=== PATIENT | female | born 1980 | race Two or more races ===

== ENCOUNTER 2024-03-19 09:31 | Outpatient (RCR) | payer BC, SELFPAY ==
--- NOTE | 2024-03-22 16:23 | CTCCONSULT_ITS ---
[address] [address] RE: ANA UMANA D.O.B.: 1980 AGE: 43 DATE OF CONSULTATION: 03/19/2024 DIAGNOSIS: Thrombocytosis REFERRING PHYSICIAN: MAITE RÍOS PRIMARY PHYSICIAN :MAITE RÍOS REASON FOR CONSULTATION: Thrombocytosis HISTORY OF PRESENT ILLNESS: Patient is a 43-year-old woman with a history of thrombocytosis. Patient was noted to have elevated platelet and primary care started her on baby aspirin. Patient do not have recurrent clots. Patient complains of headache which are chronic. Patient also have many nonspecific complaints. Patient apollo avaloses history of full-term pregnancies. She had 2 children born with did not require any tr ansfusion. No blood clot PE or DVT history. Patient needed removal of varicose veins. 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 GI: No nausea, vomiting, diarrhea or constipation. CVS: No palpitations or angina pains. Respiratory: No cough, chest pain or shortness of breath. VITAL SIGNS: Date Time PHYSICAL EXAMINATION: Conjunctivae is white. Oral cavity is dry. Chest is clear to auscultation. No wheezes or rales audible. CVS: Rhythm regular, no murmurs or gallops present. Abdomen is soft. No hepatosplenomegaly. Extremities: No pedal edema or cyanosis. LABORATORY DATA: Date 03/20/2024 Time 9:26 AM CBC ? ??RED BLOOD COUNT (Miln/mm3) [C] 5.22 H ??HEMOGLOBIN (gm/dl) [C] 9.8 L ??HEMATOCRIT (%) [C] 34.8 L ??MCV (MEAN CORPUSCULAR VOL) (fl) [C] 67 L ??MCH (MEAN CORPUSCULAR HGB) (pg) [C] 18.8 L ??MCHC (MEAN CORPSCULR HGB CONC) (gm/dl) [C] 28.2 L ??RDW (RBC DISTRIBUTION WDTH) SD (fl) [C] 49.1 H ??EOS, AUTO (Thou/mm3) [C] 0.8 H ??IMMATURE GRANULOCYTES, AUTO (Thou/mm3) [C] 0.02 H Chemistry ? ??SODIUM (mmol/L) 135 L ??ANION GAP (mmol/L) 4 L ??OSMOLALITY, CALC 271 L ??BUN/CREATININE RATIO (Ratio) 33 H Additional Labs ? ??UNBOUND IBC (mcg/dL) 387 H ? ??Initials PB ??Approved By PB Other Labs ? ??IMMATURE RETICULOCYTE FRACT (%) [C] 29.5 H ??FERRITIN (ng/ml) 1 L ??CRP (C-REACTIVE PROTEIN) (S*) (mg/dL) 1.5 H ??RETICULOCYTE HGB CONTENT (pg) [C] 20.0 L ??Iron (mcg/dL) 28 L ??Percent Iron Saturation (%) 6 L ASSESSMENT: #1 thrombocytosis likely reactive #2 anemia likely iron deficient PLAN: -Will get complete panel of iron studies including ferritin Will start on IV iron once ferritin results are back Will do secondary thrombocytosis workup including JAK2 Patient likely have reactive thrombocytosis from iron deficiency anemia Will do inflammatory workup including CRP ESR ?? ORDERS: Ferritin iron studies B12 folic acid CRP ESR RETURN TO CLINIC: cc: RAYSHAWN RÍOS, Referring: MAITE RÍOS Electronically Signed {Object.Sanct_Date} at {Object.Sanct_Time} {Object.Sanct_ID*PnP.NameFL@M}, {Object.Sanct_ID*PnP.Suffix@U} Patient: ANA UMANA : 1980 MR#: [id number] Account: [id number] FOLLOW UP NOTE Page 2 of 4
== END 2024-04-04 23:59 | disposition home or self-care (01) ==
LOC: SCTC 09:31
PROVIDERS: PCP Internal Medicine; Referring Provider Internal Medicine; Visit Provider Internal Medicine Hematology & Oncology
DX: D75.839 Thrombocytosis, unspecified (principal); D50.9 Iron deficiency anemia, unspecified
CPT/HCPCS: 99213; G0463

== ENCOUNTER → 2024-03-20 | Outpatient (CLI) | payer BC, SELFPAY ==
[2024-03-20 09:30] LABS: Flow Cytometry* See Sep Rpt; Misc Send Out* See Sep Rpt
[2024-03-20 10:10] LABS: Basophils # (Auto) 0.1 Thou/mm3 (0.0-0.2); Basophils % (Auto) 1 % (0-2.5); Eosinophils # (Auto) 0.8 Thou/mm3 (0.0-0.5); Eosinophils % (Auto) 9 % (0-10); Hematocrit 34.8 % (36.0-46.0); Hemoglobin 9.8 g/dL (12.0-16.0); Immature Granulocytes % (Auto) 0 % (0-0); Immature Granulocytes Auto 0.02 Thou/mm3 (0.00-0.00); Immature Reticulocyte Fraction 29.5 % (3.0-15.9); Lymphocytes # (Auto) 2.4 Thou/mm3 (1.0-4.8); Lymphocytes % (Auto) 26 % (10-50); Mean Corpuscular HGB Conc 28.2 g/dl (31.0-37.0); Mean Corpuscular Hemoglobin 18.8 pg (25.0-35.0); Mean Corpuscular Volume 67 fL (80-100); Monocytes # (Auto) 0.4 Thou/mm3 (0.0-0.8); Monocytes % (Auto) 4 % (0-12); Neutrophils # (Auto) 5.5 Thou/mm3 (1.8-7.7); Neutrophils % (Auto) 60 % (37-80); Nucleated Red Blood Cell % 0 /100 WBC (0); Platelet Count 424 Thou/mm3 (140-440); RDW Standard Deviation 49.1 fL (36.4-46.3); Red Blood Count 5.22 Miln/mm3 (4.00-5.20); Reticulocyte % (Auto) 0.9 % (0.5-1.5); Reticulocyte Absolute Auto 47.5 Biln/L (25.0-75.0); White Blood Count 9.2 Thou/mm3 (3.6-11.0)
[2024-03-20 10:26] LABS: Alanine Aminotransferase 28 U/L (10-49); Albumin, Serum 4.8 gm/dL (3.5-5.0); Albumin/Globulin Ratio 1.5 (1.2-2.2); Alkaline Phosphatase 86 U/L (46-116); Anion Gap 4 (7-16); Aspartate Amino Transferase 32 U/L (0-34); BUN/Creatinine Ratio 33 Ratio (12-20); Bilirubin,Total 0.6 mg/dL (0.3-1.2); Blood Urea Nitrogen 20 mg/dL (9-23); C-Reactive Protein 1.5 mg/dL (0.0-0.9); Calcium 9.6 mg/dL (8.3-10.6); Calcium (Corrected) 9.6 mg/dL (8.5-10.1); Carbon Dioxide 26.9 mMol/L (20.0-31.0); Chloride 104 mMol/L (98-107); Creatinine (Component) 0.6 mg/dL (0.6-1.3); Globulin 3.3 gm/dL (2.3-3.5); Glucose 85 mg/dL (74-106); LDH (Lactate Dehydrogenase) 157 U/L (120-246); Osmolality,Calculated 271 (275-295); Potassium 4.1 mMol/L (3.4-5.1); Sodium 135 mMol/L (136-145); Thyroid Stimulating Hormone 1.25 uIU/mL (0.55-4.78); Total Protein 8.1 gm/dL (5.7-8.2); eGFR > 60 See Note
[2024-03-20 10:39] LABS: Ferritin 1 ng/mL (7.3-270.7); Iron 28 mcg/dL (50-170); Percent Iron Saturation 6 % (20-55); Total Iron Binding Capacity 415 mcg/dL (250-425); Unsaturated Iron Binding 387 (225-295)
[2024-03-20 11:17] LABS: RA Screen Negative (Negative)
[2024-03-30 07:22] LABS: ANA Screen, IFA NEGATIVE (NEGATIVE); Haptoglobin* 150 mg/dL (43-212); T3,Total* 120 ng/dL (76-181)
== END | disposition home or self-care (01) ==
PROVIDERS: PCP Internal Medicine; Referring Provider Internal Medicine Hematology & Oncology; Visit Provider Internal Medicine Hematology & Oncology
DX: D75.839 Thrombocytosis, unspecified (principal); D64.9 Anemia, unspecified; D47.3 Essential (hemorrhagic) thrombocythemia
CPT/HCPCS: 36415; 80053; 81219; 81270; 81279; 81339; 82728; 83010; 83540; 83550; 83615; 84443; 84480; 85025; 85046; 86038; 86140; 86430

== ENCOUNTER 2024-04-09 13:19 | Outpatient (RCR) | payer BC, SELFPAY | END 2024-05-05 23:59 | disposition home or self-care (01) | LOC: SCTC 13:19 | PROVIDERS: PCP Internal Medicine; Referring Provider Internal Medicine; Visit Provider Nurse Practitioner Family | DX: D64.9 Anemia, unspecified (principal); Z86.2 Personal history of diseases of the blood and blood-forming organs and certain disorders involving the immune mechanism; Z90.710 Acquired absence of both cervix and uterus | CPT/HCPCS: 99212; G0463 ==

== ENCOUNTER → 2024-05-22 | Outpatient (CLI) | payer BC, SELFPAY ==
[2024-05-22 09:08] LABS: Basophils # (Auto) 0.1 Thou/mm3 (0.0-0.2); Basophils % (Auto) 1 % (0-2.5); Eosinophils # (Auto) 1.5 Thou/mm3 (0.0-0.5); Eosinophils % (Auto) 25 % (0-10); Hematocrit 32.4 % (36.0-46.0); Hemoglobin 9.3 g/dL (12.0-16.0); Immature Granulocytes % (Auto) 0 % (0-0); Immature Granulocytes Auto 0.01 Thou/mm3 (0.00-0.00); Lymphocytes # (Auto) 1.5 Thou/mm3 (1.0-4.8); Lymphocytes % (Auto) 24 % (10-50); Mean Corpuscular HGB Conc 28.7 g/dl (31.0-37.0); Mean Corpuscular Hemoglobin 18.4 pg (25.0-35.0); Mean Corpuscular Volume 64 fL (80-100); Monocytes # (Auto) 0.9 Thou/mm3 (0.0-0.8); Monocytes % (Auto) 15 % (0-12); Neutrophils # (Auto) 2.2 Thou/mm3 (1.8-7.7); Neutrophils % (Auto) 35 % (37-80); Nucleated Red Blood Cell % 0 /100 WBC (0); Platelet Count 446 Thou/mm3 (140-440); RDW Standard Deviation 38.7 fL (36.4-46.3); Red Blood Count 5.05 Miln/mm3 (4.00-5.20); Reticulocyte % (Auto) 0.7 % (0.5-1.5); Reticulocyte Absolute Auto 34.3 Biln/L (25.0-75.0); Reticulocyte Hgb Content 16.4 pg (28.0-35.0); White Blood Count 6.2 Thou/mm3 (3.6-11.0)
[2024-05-22 09:33] LABS: Alanine Aminotransferase 33 U/L (10-49); Albumin, Serum 4.5 gm/dL (3.5-5.0); Anion Gap 7 (7-16); Aspartate Amino Transferase 32 U/L (0-34); BUN/Creatinine Ratio 23 Ratio (12-20); Bilirubin,Total 0.3 mg/dL (0.3-1.2); Blood Urea Nitrogen 14 mg/dL (9-23); Calcium 9.3 mg/dL (8.3-10.6); Chloride 102 mMol/L (98-107); Creatinine (Component) 0.6 mg/dL (0.6-1.3); Glucose 89 mg/dL (74-106); Osmolality,Calculated 273 (275-295); Potassium 4.2 mMol/L (3.4-5.1); Sodium 137 mMol/L (136-145); Total Protein 7.4 gm/dL (5.7-8.2); eGFR > 60 See Note
[2024-05-22 09:34] LABS: Albumin/Globulin Ratio 1.6 (1.2-2.2); Alkaline Phosphatase 75 U/L (46-116); Calcium (Corrected) 9.3 mg/dL (8.5-10.1); Folate 16.71 ng/mL (>5.38); Globulin 2.9 gm/dL (2.3-3.5); Vitamin B12 605 pg/mL (211-911)
[2024-05-22 10:09] LABS: Ferritin 8 ng/mL (7.3-270.7); Total Iron Binding Capacity 388 mcg/dL (250-425)
[2024-05-22 10:19] LABS: Iron 17 mcg/dL (50-170); Percent Iron Saturation 4 % (20-55); Unsaturated Iron Binding 371 (225-295)
== END | disposition home or self-care (01) ==
LOC: COPL 07:41 → SCTO 07:42
PROVIDERS: PCP Internal Medicine; Referring Provider Nurse Practitioner Family; Visit Provider Nurse Practitioner Family
DX: D47.3 Essential (hemorrhagic) thrombocythemia (principal)
CPT/HCPCS: 36415; 80053; 82607; 82728; 82746; 83540; 83550; 85025; 85046

== ENCOUNTER 2024-06-03 13:55 | Outpatient (RCR) | payer BC, OTHER, SELFPAY | END 2024-06-05 23:59 | disposition home or self-care (01) | LOC: SCTC 13:55 | PROVIDERS: PCP Internal Medicine; Referring Provider Internal Medicine; Visit Provider Internal Medicine Hematology & Oncology | DX: D64.9 Anemia, unspecified (principal); Z90.710 Acquired absence of both cervix and uterus | CPT/HCPCS: 96365; 96366; 96375; J2916; J2919; J3490; J7040; J7050 ==

== ENCOUNTER 2024-06-24 13:52 | Outpatient (RCR) | payer BC, OTHER, SELFPAY | END 2024-07-03 23:59 | disposition home or self-care (01) | LOC: SCTC 13:52 | PROVIDERS: PCP Internal Medicine; Referring Provider Internal Medicine Hematology & Oncology; Visit Provider Internal Medicine Hematology & Oncology | DX: D50.9 Iron deficiency anemia, unspecified (principal); Z90.710 Acquired absence of both cervix and uterus | CPT/HCPCS: 36415; 96365; 96375; A4216; J2916; J2919; J3490; J7040; J7050 ==

== ENCOUNTER → 2024-06-25 | Outpatient (CLI) | payer BC, SELFPAY ==
[2024-06-25 08:34] LABS: Basophils # (Auto) 0.1 Thou/mm3 (0.0-0.2); Basophils % (Auto) 1 % (0-2.5); Eosinophils # (Auto) 0.7 Thou/mm3 (0.0-0.5); Eosinophils % (Auto) 9 % (0-10); Hematocrit 36.4 % (36.0-46.0); Hemoglobin 10.7 g/dL (12.0-16.0); Immature Granulocytes % (Auto) 0 % (0-0); Immature Granulocytes Auto 0.01 Thou/mm3 (0.00-0.00); Immature Reticulocyte Fraction 31.1 % (3.0-15.9); Lymphocytes % (Auto) 24 % (10-50); Mean Corpuscular HGB Conc 29.4 g/dl (31.0-37.0); Mean Corpuscular Hemoglobin 20.7 pg (25.0-35.0); Mean Corpuscular Volume 70 fL (80-100); Monocytes # (Auto) 0.6 Thou/mm3 (0.0-0.8); Monocytes % (Auto) 8 % (0-12); Neutrophils # (Auto) 4.8 Thou/mm3 (1.8-7.7); Neutrophils % (Auto) 59 % (37-80); Nucleated Red Blood Cell % 0 /100 WBC (0); Platelet Count 395 Thou/mm3 (140-440); RDW Standard Deviation 64.7 fL (36.4-46.3); Red Blood Count 5.17 Miln/mm3 (4.00-5.20); Reticulocyte % (Auto) 1.4 % (0.5-1.5); Reticulocyte Absolute Auto 71.9 Biln/L (25.0-75.0); Reticulocyte Hgb Content 27.5 pg (28.0-35.0); White Blood Count 8.3 Thou/mm3 (3.6-11.0)
[2024-06-25 08:55] LABS: Alanine Aminotransferase 40 U/L (10-49); Albumin/Globulin Ratio 1.4 (1.2-2.2); Alkaline Phosphatase 79 U/L (46-116); Anion Gap 9 (7-16); Aspartate Amino Transferase 40 U/L (0-34); BUN/Creatinine Ratio 27 Ratio (12-20); Bilirubin,Total 0.5 mg/dL (0.3-1.2); Blood Urea Nitrogen 16 mg/dL (9-23); Calcium 9.5 mg/dL (8.3-10.6); Calcium (Corrected) 9.5 mg/dL (8.5-10.1); Carbon Dioxide 26.1 mMol/L (20.0-31.0); Chloride 103 mMol/L (98-107); Creatinine (Component) 0.6 mg/dL (0.6-1.3); Globulin 2.8 gm/dL (2.3-3.5); Glucose 105 mg/dL (74-106); Osmolality,Calculated 276 (275-295); Potassium 4.4 mMol/L (3.4-5.1); Sodium 138 mMol/L (136-145); Total Protein 6.8 gm/dL (5.7-8.2); eGFR > 60 See Note
[2024-06-25 09:02] LABS: Folate 14.32 ng/mL (>5.38); Vitamin B12 453 pg/mL (211-911)
[2024-06-25 09:09] LABS: Ferritin 74 ng/mL (7.3-270.7); Total Iron Binding Capacity 329 mcg/dL (250-425)
[2024-06-25 09:19] LABS: Iron 184 mcg/dL (50-170); Percent Iron Saturation 55 % (20-55); Unsaturated Iron Binding 145 (225-295)
== END | disposition home or self-care (01) ==
LOC: COPL 07:14
PROVIDERS: PCP Internal Medicine; Referring Provider Nurse Practitioner Family; Visit Provider Nurse Practitioner Family
DX: D47.3 Essential (hemorrhagic) thrombocythemia (principal)
CPT/HCPCS: 36415; 80053; 82607; 82728; 82746; 83540; 83550; 85025; 85046

== ENCOUNTER 2024-07-07 14:54 | Outpatient (RCR) | payer BC, SELFPAY | END 2024-08-03 23:59 | disposition home or self-care (01) | LOC: SCTC 14:54 | PROVIDERS: PCP Internal Medicine; Referring Provider Internal Medicine; Visit Provider Nurse Practitioner Family | DX: D50.9 Iron deficiency anemia, unspecified (principal) | CPT/HCPCS: 99212; G0463 ==

== ENCOUNTER 2024-07-15 09:00 | Day surgery (SDC) | payer OTHER, SELFPAY ==
[2024-07-15] VITALS (15 sets, daily range): BP systolic 86–158; BP diastolic 70–107; PULSE 71–103; RESP 13–20; TEMP 36.2–36.4; O2SAT 92–100; BMI 29.7
[2024-07-15 09:53] LABS: HCG Qualitative,Urine Negative
[2024-07-15] MEDS: fentaNYL CIT INJ 50 mCg/ML AMP 2ML (ASD USE ONLY) IV (11:00)
[2024-07-15] MEDS: DiphenhydrAMINE INJ 50 MG/ML VIAL 25 MG IV (11:00)
[2024-07-15] MEDS: SODIUM CHLORIDE 0.9% 500 ML 500 ML 20 ML IV (11:00)
[2024-07-15] MEDS: MIDAZOLAM INJ 1 MG/ML VIAL 2 ML (ASD USE ONLY) 2 MG IV (11:00)
[2024-07-15] MEDS: MEPERIDINE INJ 25 MG/ML VIAL (ASD USE ONLY) 50 MG IV (11:00)
== END 2024-07-15 12:57 | disposition home or self-care (01) ==
PROVIDERS: PCP Internal Medicine; Referring Provider Specialist; Visit Provider Specialist
PROC: 0DBE8ZX Excision of Large Intestine, Via Natural or Artificial Opening Endoscopic, Diagnostic (ICD-10-PCS; CPT 45380; principal; 2024-07-15 09:00)
PROC: (CPT 43239; 2024-07-15 09:00)
DX: K64.2 Third degree hemorrhoids (principal); D50.9 Iron deficiency anemia, unspecified; K64.4 Residual hemorrhoidal skin tags
CPT/HCPCS: 45378; 46221; 81025; A4649; J1200; J2175; J2250; J3010; J7040

== ENCOUNTER → 2024-08-05 | Outpatient (CLI) | payer BC, SELFPAY ==
[2024-08-05 17:30] LABS: Basophils # (Auto) 0.1 Thou/mm3 (0.0-0.2); Basophils % (Auto) 1 % (0-2.5); Eosinophils % (Auto) 10 % (0-10); Hematocrit 36.8 % (36.0-46.0); Hemoglobin 11.5 g/dL (12.0-16.0); Immature Granulocytes % (Auto) 0 % (0-0); Immature Granulocytes Auto 0.02 Thou/mm3 (0.00-0.00); Lymphocytes # (Auto) 2.9 Thou/mm3 (1.0-4.8); Lymphocytes % (Auto) 28 % (10-50); Mean Corpuscular HGB Conc 31.3 g/dl (31.0-37.0); Mean Corpuscular Hemoglobin 23.2 pg (25.0-35.0); Mean Corpuscular Volume 74 fL (80-100); Monocytes # (Auto) 0.8 Thou/mm3 (0.0-0.8); Monocytes % (Auto) 8 % (0-12); Neutrophils # (Auto) 5.4 Thou/mm3 (1.8-7.7); Neutrophils % (Auto) 53 % (37-80); Nucleated Red Blood Cell % 0 /100 WBC (0); Platelet Count 410 Thou/mm3 (140-440); RDW Standard Deviation 58.3 fL (36.4-46.3); Red Blood Count 4.95 Miln/mm3 (4.00-5.20); Reticulocyte % (Auto) 0.7 % (0.5-1.5); Reticulocyte Absolute Auto 33.7 Biln/L (25.0-75.0); Reticulocyte Hgb Content 24.9 pg (28.0-35.0); White Blood Count 10.1 Thou/mm3 (3.6-11.0)
[2024-08-05 17:43] LABS: Alanine Aminotransferase 32 U/L (10-49); Albumin/Globulin Ratio 1.4 (1.2-2.2); Alkaline Phosphatase 88 U/L (46-116); Anion Gap 7 (7-16); Aspartate Amino Transferase 27 U/L (0-34); BUN/Creatinine Ratio 23 Ratio (12-20); Bilirubin,Total 0.3 mg/dL (0.3-1.2); Blood Urea Nitrogen 16 mg/dL (9-23); Calcium 9.1 mg/dL (8.3-10.6); Calcium (Corrected) 9.1 mg/dL (8.5-10.1); Carbon Dioxide 28.2 mMol/L (20.0-31.0); Chloride 105 mMol/L (98-107); Creatinine (Component) 0.7 mg/dL (0.6-1.3); Globulin 2.9 gm/dL (2.3-3.5); Glucose 123 mg/dL (74-106); Osmolality,Calculated 281 (275-295); Potassium 4.1 mMol/L (3.4-5.1); Sodium 140 mMol/L (136-145); Total Protein 6.9 gm/dL (5.7-8.2); eGFR > 60 See Note
[2024-08-05 17:45] LABS: Ferritin 6 ng/mL (7.3-270.7); Folate 16.46 ng/mL (>5.38); Iron 18 mcg/dL (50-170); Percent Iron Saturation 5 % (20-55); Total Iron Binding Capacity 338 mcg/dL (250-425); Unsaturated Iron Binding 320 (225-295); Vitamin B12 514 pg/mL (211-911)
== END | disposition home or self-care (01) ==
LOC: COPL 16:26 → SCTO 16:33
PROVIDERS: PCP Internal Medicine; Referring Provider Nurse Practitioner Family; Visit Provider Nurse Practitioner Family
DX: D47.3 Essential (hemorrhagic) thrombocythemia (principal); D50.9 Iron deficiency anemia, unspecified
CPT/HCPCS: 36415; 80053; 82607; 82728; 82746; 83540; 83550; 85025; 85046

== ENCOUNTER 2024-08-10 16:01 | Outpatient (RCR) | payer BC, SELFPAY | END 2024-09-02 23:59 | disposition home or self-care (01) | LOC: SCTC 16:01 | PROVIDERS: PCP Internal Medicine; Referring Provider Internal Medicine; Visit Provider Nurse Practitioner Family | DX: D50.9 Iron deficiency anemia, unspecified (principal); Z90.710 Acquired absence of both cervix and uterus | CPT/HCPCS: 99212; G0463 ==

== ENCOUNTER 2024-08-26 17:18 | Observation (INO) | payer BC, SELFPAY ==
[2024-08-26] VITALS (7 sets, daily range): BP systolic 129–195; BP diastolic 90–128; PULSE 66–113; RESP 16–20; TEMP 36.8–37.2; O2SAT 96–100; BMI 31.4
--- NOTE | 2024-08-26 17:36 | XR_ITS ---
Examination: AP lateral chest 2 views Technique: AP lateral upright portable chest 2 views Exam date and time: August 26, 2024 1750 hrs. Comparison 01/16/2024 Indications: Chest pain beginning 3 weeks ago. Findings: Normal heart size. No pneumonia or pulmonary edema Intact osseous structures Impression: No active disease
--- NOTE | 2024-08-26 17:37 | PD.EDRME ---
Rapid Medical Screening Exam E Arrival date/time: 08/26/24 17:18 44-year-old female with medical history significant for anemia currently on iron infusions presents with complaints of feeling chest pressure and restless today patient reports symptoms intermittent for last few weeks Chief Complaint: Chest Pain Vital signs: Vital Signs Temperature 98.9 F 08/26/24 17:32 Pulse Rate 66 08/26/24 17:32 Respiratory Rate 18 08/26/24 17:32 Blood Pressure 160/121 H 08/26/24 17:32 Pulse Oximetry (%) 96 08/26/24 17:32 Oxygen Delivery Method Room Air 08/26/24 17:32
[2024-08-26 18:46] LABS: Basophils # (Auto) 0.1 Thou/mm3 (0.0-0.2); Basophils % (Auto) 1 % (0-2.5); Eosinophils # (Auto) 0.9 Thou/mm3 (0.0-0.5); Eosinophils % (Auto) 8 % (0-10); Hematocrit 38.4 % (36.0-46.0); Immature Granulocytes % (Auto) 0 % (0-0); Immature Granulocytes Auto 0.02 Thou/mm3 (0.00-0.00); Lymphocytes % (Auto) 27 % (10-50); Mean Corpuscular HGB Conc 31.3 g/dl (31.0-37.0); Mean Corpuscular Hemoglobin 23.7 pg (25.0-35.0); Mean Corpuscular Volume 76 fL (80-100); Monocytes # (Auto) 0.8 Thou/mm3 (0.0-0.8); Monocytes % (Auto) 8 % (0-12); Neutrophils # (Auto) 6.1 Thou/mm3 (1.8-7.7); Neutrophils % (Auto) 56 % (37-80); Nucleated Red Blood Cell % 0 /100 WBC (0); Platelet Count 425 Thou/mm3 (140-440); RDW Standard Deviation 48.8 fL (36.4-46.3); Red Blood Count 5.07 Miln/mm3 (4.00-5.20)
[2024-08-26 18:53] LABS: Partial Thromboplastin Time 31.1 Seconds (22.0-36.0); Prothrombin Time 11.2 Seconds (9.0-12.2)
[2024-08-26 19:00] LABS: Collection Type, Urine Clean Catch
[2024-08-26 19:07] LABS: B-Type Natriuretic Peptide 25 pg/mL (0-100)
[2024-08-26 19:12] LABS: Alanine Aminotransferase 25 U/L (10-49); Albumin, Serum 4.3 gm/dL (3.5-5.0); Albumin/Globulin Ratio 1.3 (1.2-2.2); Alkaline Phosphatase 89 U/L (46-116); Anion Gap 6 (7-16); Aspartate Amino Transferase 26 U/L (0-34); BUN/Creatinine Ratio 13 Ratio (12-20); Bilirubin,Total 0.2 mg/dL (0.3-1.2); Blood Urea Nitrogen 9 mg/dL (9-23); Carbon Dioxide 26.7 mMol/L (20.0-31.0); Chloride 106 mMol/L (98-107); Creatinine (Component) 0.7 mg/dL (0.6-1.3); Estimated Creatinine Clearance 108.6 mL/min (>60); Free T4 (Free Thyroxine) 1.17 ng/dL (0.89-1.76); Globulin 3.3 gm/dL (2.3-3.5); Glucose 113 mg/dL (74-106); Osmolality,Calculated 277 (275-295); Potassium 3.7 mMol/L (3.4-5.1); Sodium 139 mMol/L (136-145); Thyroid Stimulating Hormone 1.45 uIU/mL (0.55-4.78); Total Protein 7.6 gm/dL (5.7-8.2); Troponin I < 0.002 ng/mL (0.0-0.045); eGFR > 60 See Note
[2024-08-26 19:35] LABS: Bilirubin,Urine Negative (Negative); Blood,Urine 2+ (Negative); Clarity,Urine Clear (Clear/Hazy); Color,Urine Colorless (Lt Yel-Yel); Glucose, Urine Negative (Negative); Ketones,Urine Negative (Negative); Leukocyte Esterase,Urine Negative (Negative); Nitrite,Urine Negative (Negative); PH,Urine 7.5 (5.0-7.0); Protein,Urine Negative (Neg - Trace); RBC,Urine 2 /hpf (0-3); Specific Gravity,Urine 1.012 (1.001-1.035); Squamous Epithelial Cell,Urine 7 /hpf (0-5); Urobilinogen,Urine Negative mg/dL (0.0-1.0); WBC,Urine 2 /hpf (0-5)
[2024-08-26 19:45] LABS: HCG Qualitative,Urine Negative
[2024-08-26 19:49] LABS: Amphetamine/Methamp Scrn,U Negative (Negative); Barbiturate Screen,Urine Negative (Negative); Benzodiazepines Screen,Urine Negative (Negative); Benzoylecgonine Screen, Ur Negative (Negative); Fentanyl Screen,Urine Negative (Negative); Opiate Screen,Urine Negative (Negative); THC Screen,Urine Negative (Negative)
--- NOTE | 2024-08-26 21:13 | PD.EDADULT ---
ED General RME/HPI General Chief complaint: Chest Pain Stated complaint: CHEST PAIN, SOB, AND RESTLESS Time Seen by Provider: 08/26/24 22:31 Arrival date/time: 08/26/24 17:18 CC: 2 episodes of lightheadedness and dizziness in the last 24 hours that made her feel a body feel like Jell-O , the patient denies any loss of consciousness or altered level of consciousness. At the time of the interview at 2114, the patient is experiencing incident at which time the patient's heart rate went from 90-123. Patient also need to be exceedingly hypertensive at 195/128. The patient also became tachycardic. The patient is awake alert has a very flat affect very difficult to get straight answers from her to denies any chest pain but states she has shortness of breath even though she is speaking in full sentences with oxygen saturations at 98%. Patient states she went for second opinion several days ago in [place] and was informed by the doctor there that she really should go to the emergency room because her blood pressure was still high . Patient continues when she states when she has these episodes and when she walks she has a's more cough and then feels like she is short of breath. Patient currently says at this time she is mildly nauseated. RME / HPI RME / HPI narrative: 08/26/24 17:18 44-year-old female with medical history significant for anemia currently on iron infusions presents with complaints of feeling chest pressure and restless today patient reports symptoms intermittent for last few weeks Related Data Home Medications ?Medication ?Instructions ?Recorded ?Confirmed albuterol sulfate 2.5 mg/3 mL 2.5 mg inhalation PRN PRN Wheezing 01/16/24 07/15/24 (0.083 %) solution for nebulization propranolol 10 mg tablet 10 mg PO 2XD 01/16/24 07/15/24 aspirin 81 mg tablet,delayed 81 mg PO QDAY 07/15/24 07/15/24 release Allergies Allergy/AdvReac Type Severity Reaction Status Date / Time No Known Allergies Allergy Verified 08/26/24 17:20 Course Course Course Narrative: At 0 after getting the patient into bed the patient is pressures 195/126 the patient is a somewhat dramatic, and very difficult to pin down on specific complaints as she repeats that she body feels like Jell-O and that she is short of breath. Oral temp is normal, respiratory rate is normal. Speaking in full sentences. Lung sounds are clear to auscultation. Reevaluation of this patient at 2250, the patient continued complaint of lightheaded dizziness and shortness of breath with fatigue. D-dimer is negative. Patient's hypertension has now been moderated with the propranolol and hydralazine. Patient's case discussed at length with Dr. Blake, who agrees the patient needs to be observed and is asking the hospitalist to monitor the patient overnight if she is needed for consult she will agree to do so. Patient's case then discussed with the resident for Dr. Bean Quality Measures none Orders Category Date Time Status Patient Condition Routine Admission 08/26/24 23:[address] in Observation Status Routine Admission 08/26/24 23:15 Active Bedside COVID-19 Antigen Test NOW Care 08/26/24 21:15 Active Bedside Influenza A&B Antigen Test NOW Care 08/26/24 21:15 Completed COVID-19 Screening Questionnaire NOW Care 08/26/24 23:13 Active Decision to Admit X1 Care 08/26/24 23:13 Completed EKG (ED ONLY) *Do not use* NOW Care 08/26/24 17:36 Completed Notify provider NEEDED Care 08/26/24 23:15 Active Orthostatic Vitals X1 Care 08/26/24 23:15 Active Saline [Insert IV] NOW Care 08/26/24 21:11 Active Referral Physical Therapy Routine Cons 08/26/24 23:18 Active Diet Cardiac Diet 08/27/24 Breakfast Active CA echo doppler complete Routine Exams 08/26/24 23:17 Ordered EKG (ED Only) Stat Exams 08/26/24 17:36 Ordered XR chest 2V Stat Exams 08/26/24 17:36 Completed A1C [Glycohemoglobin w (eAG)] AM DRAW Lab 08/27/24 05:00 Ordered B-Type Natriuretic Peptide Stat Lab 08/26/24 18:21 Completed CBC AM DRAW Lab 08/27/24 05:00 Ordered CBC AM DRAW Lab 08/28/24 05:00 Ordered CBC AM DRAW Lab 08/29/24 05:00 Ordered CBC Stat Lab 08/26/24 18:21 Completed Comprehensive Metabolic Panel AM DRAW Lab 08/27/24 05:00 Ordered Comprehensive Metabolic Panel AM DRAW Lab 08/28/24 05:00 Ordered Comprehensive Metabolic Panel AM DRAW Lab 08/29/24 05:00 Ordered Comprehensive Metabolic Panel Stat Lab 08/26/24 18:21 Completed D-Dimer Stat Lab 08/26/24 21:15 Completed Drug Screen,Urine Stat Lab 08/26/24 18:50 Completed Free T4 (Free Thyroxine) Stat Lab 08/26/24 18:21 Completed HCG Qualitative,Urine Stat Lab 08/26/24 18:50 Completed Magnesium AM DRAW Lab 08/27/24 05:00 Ordered Magnesium AM DRAW Lab 08/28/24 05:00 Ordered Magnesium AM DRAW Lab 08/29/24 05:00 Ordered Magnesium Stat Lab 08/26/24 18:21 Completed Partial Thromboplastin Time Stat Lab 08/26/24 18:21 Completed Phosphorous AM DRAW Lab 08/27/24 05:00 Ordered Phosphorous AM DRAW Lab 08/28/24 05:00 Ordered Phosphorous AM DRAW Lab 08/29/24 05:00 Ordered Prothrombin Time with INR Stat Lab 08/26/24 18:21 Completed TSH [Thyroid Stimulating Hormone] AM DRAW Lab 08/27/24 05:00 Ordered TSH [Thyroid Stimulating Hormone] Stat Lab 08/26/24 18:21 Completed Troponin I Stat Lab 08/26/24 18:21 Completed Urinalysis Stat Lab 08/26/24 18:50 Completed Acetaminophen Tab [Tylenol Tab] Med 08/26/24 23:15 Active 650 mg PO Q6H PRN Enoxaparin [Lovenox] Med 08/27/24 09:00 Active 40 mg SC QDAY Labetalol IV [Trandate IV] Med 08/26/24 22:34 Discontinued 20 mg IVP X1 ONE Ondansetron Inj [Zofran Inj] Med 08/26/24 23:15 Ordered 4 mg IV Q6H PRN Ondansetron Inj [Zofran Inj] Med 08/26/24 21:17 Discontinued 4 mg IV X1 ONE Propranolol HCl [Inderal] Med 08/26/24 21:41 Discontinued 10 mg PO X1 ONE Senna [Senokot] Med 08/26/24 23:15 Ordered 1 tab PO QDAY PRN hydrALAZINE INJ [Apresoline Inj] Med 08/26/24 21:11 Discontinued 20 mg IV X1 ONE Code Status Routine Oth 08/26/24 23:15 Ordered Oxygen Delivery PRN RT 08/26/24 23:15 Active Vital Signs Vital signs: Vital Signs Temperature 98.9 F 08/26/24 17:32 Pulse Rate 66 08/26/24 17:32 Respiratory Rate 18 08/26/24 17:32 Blood Pressure 160/121 H 08/26/24 17:32 Pulse Oximetry (%) 96 08/26/24 17:32 Oxygen Delivery Method Room Air 08/26/24 17:32 Discharge Plan Plan Patient Disposition: Other Care w/in Hosp ([facility]/JAMIE) Prescriptions/Referrals Prescriptions/Med Rec: No Action propranolol 10 mg tablet 10 mg PO 2XD Patient Comments: take 1 tablet by mouth twice a day albuterol sulfate 2.5 mg /3 mL (0.083 %) solution for nebulization 2.5 mg inhalation PRN PRN (Reason: Wheezing) Patient Comments: inhale contents of 1 vial ( 3 MILLILITERS ) in nebulizer by mouth... (REFER TO PRESCRIPTION NOTES). aspirin 81 mg tablet,delayed release (DR/EC) 81 mg PO QDAY Patient Comments: take 1 tablet by mouth once daily Referrals: Luis Carlos English MD [Primary Care Provider] - In 1 week Problem List Clinical Impression: Tachycardia, Hypertension Patient/Caregiver Discharge Instructions Print Language: Kinyarwanda Stand Alone Forms: StatusPage Award Info., Patient Portal Info Letter PA/CHANNEL OPENER Supervising Physician PA/CHANNEL OPENER Supervising Physician: Gabe Ruffin ENP [facility] EKG EKG Interpretation(s): EKG performed at 1736 shows ventricular rate of 90 OR interval 129 QRS of 91 QTc of 379 is a sinus rhythm. Labs Lab(s) Interpretation(s): CBC shows no acute leukocytosis anemia or thrombocytopenia Coags within acceptable limits CMP shows no significant electrolyte imbalances glucose is 113 no renal impairment. T. bili is 0.2 no transaminitis Troponin is negative BNP is negative TSH is 1.45 Free T3 is 1.17. Urine shows 2+ blood 7 squamous epithelial cells and no bacteria. hCG is negative UDS is negative Imaging Imaging Interpretation(s): Chest x-ray as interpreted by me read by radiology as negative for any acute finding. Medication Administration(s) Medication Administration History Acetaminophen (Acetaminophen 325 Mg Tablet) 650 mg PO Q6H PRN PRN Reason: Fever >100.3 or pain 1-3 Stop: 09/25/24 23:14 Enoxaparin Sodium (Enoxaparin Sod Inj 40 Mg/0.4 Ml Syringe) 40 mg SC QDAY ANDREWS Stop: 09/10/24 08:59 Ondansetron HCl (Ondansetron Inj 2 Mg/Ml Inj 2 Ml) 4 mg IV Q6H PRN; Protocol PRN Reason: NAUSEA OR VOMITING Stop: 09/25/24 23:14 Sennosides (Senna Tablet) 1 tab PO QDAY PRN; Protocol PRN Reason: constipation Stop: 09/25/24 23:14 Discontinued Medications Hydralazine HCl (Hydralazine Inj 20 Mg/Ml Vial) 20 mg IV X1 ONE Stop: 08/26/24 21:12 Last Admin: 08/26/24 21:15 Dose: 20 mg Documented By: ERNST Labetalol HCl (Labetalol Inj 5 Mg/Ml Vial 20 Ml) 20 mg IVP X1 ONE Stop: 08/26/24 22:35 Ondansetron HCl (Ondansetron Inj 2 Mg/Ml Inj 2 Ml) 4 mg IV X1 ONE; Protocol Stop: 08/26/24 21:18 Last Admin: 08/26/24 21:32 Dose: 4 mg Documented By: ERNST Propranolol HCl (Propranolol 10 Mg Tablet) 10 mg PO X1 ONE Stop: 08/26/24 21:42 Last Admin: 08/26/24 22:23 Dose: 10 mg Documented By: ERNST
[2024-08-26] MEDS: hydrALAZINE INJ 20 MG/ML VIAL IV (21:15)
[2024-08-26] MEDS: ONDANSETRON INJ 2 MG/ML INJ 2 ML 4 MG IV (21:32)
[2024-08-26] MEDS: PROPRANOLOL 10 MG TABLET PO (22:23)
[2024-08-26 22:29] LABS: D-Dimer < 250 ng/mL (<600)
--- NOTE | 2024-08-26 23:32 | PD.RESHP ---
Documentation for date of: 08/26/24 HPI History of Present Illness Chief complaint: dizziness, general weakness History of present illness: Patient is a 44-year-old female with a previous medical history of hypertension, anxiety, asthma, depression who came to the ED on 08/26/2024 due to general weakness, dizziness, chest pain, shortness of breath, palpitations. She reported that during the day she had an episode of feeling dizzy, generally weak, her body felt like a Jell-O . She denies losing conscioussness. She reports that she's been feeling weak for a 3 weeks, reports that she's been having shortness of breath and chest tightness when performing light physical exertion like walking to the bathroom. Patient also reported having frequent urinations. She also reports receiving iron infusions recently and reports she has been feeling bone pain in the lower back after them. She also said that she went to the doctor in [facility] for second opinion where she was found to have high blood pressure. In the ED: Initial blood pressure 160/121, went up to 195/128, she also had tachycardia 90s?120s, sinus tachycardia on EKG. Saturating well on room air. Labs showed WBC count 11.0, hemoglobin 12, platelets 425, D-dimer less than 250, sodium 139, potassium 3.7, BUN 9, creatinine 0.7, EGFR more than 60, glucose 113, corrected calcium 9, magnesium 2, troponin I was negative, AST 26, ALT 25, TSH 1.45, free T4 1.17. Iron panel in August 2024 showed ferritin of 6. UA was negative for signs of UTI. U tox was negative. In the ED she received hydralazine 20 x 1, ondansetron 4 mg x 1, propranolol 10 mg x 1, blood pressure went down to 129/94, heart rate 103. Patient is going to be admitted for syncope work up. Surgical history: tuboovarial abscess, s/p right salpingectomy, right ovarian cystectomy in 2023, . Home medications: propranolol Allergies: denies Review of Systems Review of Systems Systems Reviewed: All systems reviewed, normal except as documented Past Medical History Past Medical History NEUROLOGIC: Positive Neurological Disorders and Transient Ischemic Attacks (TIA) (2022) CARDIAC: Positive Cardiac Disorders and Hypertension RESPIRATORY: Positive Respiratory Disorders and Asthma REPRODUCTIVE: Positive Previous Pregnancies PSYCHO/SOCIAL: Positive Depression and Anxiety Family History FAMILY HISTORY: Negative Family Psychiatric Problems, Family Respiratory Disorders, Family Cardiac Disorders, Family Gastrointestinal Problems, Family Genitourinary Problems, Family Endocrine Disorders, Family Reproductive Disorders, Family Musculoskeletal Disorders, Family Cancer, Family Surgery or Family Anesthesia Reaction Surgical History SURGICAL: Positive Section (x2) OTHER SURGICAL HX: c-sectins, septoplasty Social History SMOKING STATUS: Never smoker SECOND HAND EXPOSURE: No SUBSTANCE USE: does not use Exam Vital Signs Temp Pulse Resp BP Pulse Ox O2 Del Method 98.2 F 103 H 16 129/94 H 99 Room Air 08/26/24 22:18 08/26/24 22:43 08/26/24 22:43 08/26/24 22:48 08/26/24 22:43 08/26/24 22:18 Narrative Exam Physical Exam General: Awake and in no acute distress. Generally weak. HEENT: Normocephalic, atraumatic, mucous membranes moist. Heart: Regular rate and rhythm, no murmurs. Tachycardic. Lungs: Clear to auscultation with no wheezing or crackles. Abdomen: Soft, nondistended, nontender, positive bowel sounds. ?No guarding or rebound tenderness. Neurologic: Alert and oriented x3, no gross neurological deficit, and patient able to move all 4 extremities. Sensation's intact. Extremities: No edema. Skin: No rash or ecchymoses. Results: Labs 08/26/24 18:21 08/26/24 18:21 Labs: Short CBC 08/26/24 Range/Units 18:21 WBC 11.0 (3.6-11.0) Thou/mm3 Hgb 12.0 (12.0-16.0) g/dL Hct 38.4 (36.0-46.0) % Plt Count 425 (140-440) Thou/mm3 BMP 08/26/24 18:21 Sodium 139 Potassium 3.7 Chloride 106 Carbon Dioxide 26.7 BUN 9 Creatinine 0.7 Glucose 113 H Calcium 9.0 Cardiac Enzymes 08/26/24 Range/Units 18:21 Troponin I < 0.002 (0.0-0.045) ng/mL Liver Function 08/26/24 Range/Units 18:21 Total Bilirubin 0.2 L (0.3-1.2) mg/dL AST 26 (0-34) U/L ALT 25 (10-49) U/L Alkaline Phosphatase 89 (46-116) U/L Albumin 4.3 (3.5-5.0) gm/dL Urine 08/26/24 Range/Units 18:50 Urine Color Colorless A (Lt Yel-Yel) Urine Clarity Clear (Clear/Hazy) Urine pH 7.5 H (5.0-7.0) Ur Specific [place] 1.012 (1.001-1.035) Urine Protein Negative (Neg - Trace) Urine Glucose (UA) Negative (Negative) Quality Measures Quality Measures VTE prophylaxis Medications Home Medications and Allergies Home Medications ?Medication ?Instructions ?Recorded ?Confirmed ?Type albuterol sulfate 2.5 mg/3 mL 2.5 mg inhalation PRN PRN Wheezing 01/16/24 07/15/24 History (0.083 %) solution for nebulization propranolol 10 mg tablet 10 mg PO 2XD 01/16/24 07/15/24 History aspirin 81 mg tablet,delayed 81 mg PO QDAY 07/15/24 07/15/24 History release Allergies Allergy/AdvReac Type Severity Reaction Status Date / Time No Known Allergies Allergy Verified 08/26/24 17:20 Visit Medications Acetaminophen (Acetaminophen 325 Mg Tablet) 650 mg PO Q6H PRN PRN Reason: Fever >100.3 or pain 1-3 Stop: 09/25/24 23:14 Enoxaparin Sodium (Enoxaparin Sod Inj 40 Mg/0.4 Ml Syringe) 40 mg SC QDAY ANDREWS Stop: 09/10/24 08:59 Ondansetron HCl (Ondansetron Inj 2 Mg/Ml Inj 2 Ml) 4 mg IV Q6H PRN; Protocol PRN Reason: NAUSEA OR VOMITING Stop: 09/25/24 23:14 Sennosides (Senna Tablet) 1 tab PO QDAY PRN; Protocol PRN Reason: constipation Stop: 09/25/24 23:14 Discontinued Medications Hydralazine HCl (Hydralazine Inj 20 Mg/Ml Vial) 20 mg IV X1 ONE Stop: 08/26/24 21:12 Last Admin: 08/26/24 21:15 Dose: 20 mg Labetalol HCl (Labetalol Inj 5 Mg/Ml Vial 20 Ml) 20 mg IVP X1 ONE Stop: 08/26/24 22:35 Ondansetron HCl (Ondansetron Inj 2 Mg/Ml Inj 2 Ml) 4 mg IV X1 ONE; Protocol Stop: 08/26/24 21:18 Last Admin: 08/26/24 21:32 Dose: 4 mg Propranolol HCl (Propranolol 10 Mg Tablet) 10 mg PO X1 ONE Stop: 08/26/24 21:42 Last Admin: 08/26/24 22:23 Dose: 10 mg Assessment & Plan Plan Patient is a 44-year-old female with a previous medical history of hypertension, anxiety, asthma, depression who came to the ED on 08/26/2024 due to general weakness, dizziness, nausea, no vomiting, chest pain, shortness of breath, palpitations. Patient is going to be admitted for syncope work up. #General Weakness #Presyncopal episode Patient reported that she has been having those symptoms in the last few weeks. Reports receiving iron infusions for her iron deficiency. TSH and T4 normal. Plan: ? Telemetry ? Propranolol on hold for now ? Echo ordered ? Orthostatic vitals ? Physical therapy ?hCG serum - A1c # Hypertensive urgency In the ED her blood pressure SBP went to 190s. She received hydralazine IV. Plan: ? Home propranolol on hold ? Will hold blood pressure medications for now due to normal blood pressure #History of anxiety #History of depression Plan: ? Consider xanax x 1 if severe anxiety Health maintenance: FEN: cardiac diet DVT prophylaxis: lovenox sc GI prophylaxis: none Dispo: telemetry CODE STATUS: Full code Plan of care discussed with attending Dr. Bean. Carrol Locke MD, PGY 1. Attending Provider Attestation/Addendum I attest that I was physically present for the evaluation, physical examination, lab and imaging review of the patient with the residents. I discussed the case with the residents and agree with the findings and plans of care as documented above. Patient is a 44 years old female with medical history of Rere, asthma, depression who presented to the ED with complaint of generalized weakness, dizziness, chest pain, shortness of breath and palpitations. She also had episodes of feeling dizzy and near falls. In the ED, her blood pressure was high going up to 195/128. She was also tachycardic saturating well on room air. Lab results show WBC of 11, hemoglobin 12, D-dimer less than 250, negative troponin, normal TSH. Iron panel from her last visit showed low iron reserves. Urine tox. We will admit the patient for management of generalized weakness and near syncope. Will obtain orthostatic vitals, echocardiography, physical therapy. Her blood pressure has improved, we will start antihypertensives if blood pressure start to worsen. Cecelia Bean MD
[2024-08-27] VITALS (11 sets, daily range): BP systolic 104–175; BP diastolic 64–118; PULSE 58–101; RESP 15–18; TEMP 36.3–37.1; O2SAT 94–99; BMI 31.1
[2024-08-27 05:22] LABS: Basophils # (Auto) 0.1 Thou/mm3 (0.0-0.2); Basophils % (Auto) 1 % (0-2.5); Eosinophils # (Auto) 0.8 Thou/mm3 (0.0-0.5); Eosinophils % (Auto) 7 % (0-10); Hemoglobin 12.5 g/dL (12.0-16.0); Immature Granulocytes % (Auto) 0 % (0-0); Immature Granulocytes Auto 0.02 Thou/mm3 (0.00-0.00); Lymphocytes # (Auto) 3.5 Thou/mm3 (1.0-4.8); Lymphocytes % (Auto) 31 % (10-50); Mean Corpuscular HGB Conc 32.1 g/dl (31.0-37.0); Mean Corpuscular Hemoglobin 23.6 pg (25.0-35.0); Mean Corpuscular Volume 74 fL (80-100); Monocytes # (Auto) 0.8 Thou/mm3 (0.0-0.8); Monocytes % (Auto) 7 % (0-12); Neutrophils # (Auto) 6.2 Thou/mm3 (1.8-7.7); Neutrophils % (Auto) 55 % (37-80); Nucleated Red Blood Cell % 0 /100 WBC (0); Platelet Count 446 Thou/mm3 (140-440); RDW Standard Deviation 47.4 fL (36.4-46.3); White Blood Count 11.3 Thou/mm3 (3.6-11.0)
[2024-08-27 05:45] LABS: HCG,Qualitative Serum Negative
[2024-08-27 05:56] LABS: Alanine Aminotransferase 23 U/L (10-49); Albumin, Serum 4.3 gm/dL (3.5-5.0); Anion Gap 9 (7-16); Aspartate Amino Transferase 23 U/L (0-34); BUN/Creatinine Ratio 14 Ratio (12-20); Bilirubin,Total 0.5 mg/dL (0.3-1.2); Blood Urea Nitrogen 10 mg/dL (9-23); Calcium 9.3 mg/dL (8.3-10.6); Calcium (Corrected) 9.3 mg/dL (8.5-10.1); Carbon Dioxide 26.5 mMol/L (20.0-31.0); Chloride 105 mMol/L (98-107); Creatinine (Component) 0.7 mg/dL (0.6-1.3); Estimated Creatinine Clearance 108.6 mL/min (>60); Globulin 3.2 gm/dL (2.3-3.5); Glucose 98 mg/dL (74-106); Magnesium 1.8 mg/dL (1.6-2.6); Osmolality,Calculated 278 (275-295); Potassium 3.9 mMol/L (3.4-5.1); Sodium 140 mMol/L (136-145); Total Protein 7.5 gm/dL (5.7-8.2); eGFR > 60 See Note
[2024-08-27 05:57] LABS: Albumin/Globulin Ratio 1.3 (1.2-2.2); Alkaline Phosphatase 76 U/L (46-116)
[2024-08-27] MEDS: ACETAMINOPHEN 325 MG TABLET 650 MG PO ×2 (06:01→12:38)
[2024-08-27 07:10] LABS: Vitamin D 25 Hydroxy Total 9.6 ng/mL (7.3-40.2)
[2024-08-27 07:23] LABS: Glucose Estimated Average 114 mg/dL (80-131); Hemoglobin A1C 5.6 % Hgb (4.8-6.0)
[2024-08-27] MEDS: ONDANSETRON INJ 2 MG/ML INJ 2 ML 4 MG IV (08:08)
[2024-08-27] MEDS: ENOXAPARIN SOD INJ 40 MG/0.4 ML SYRINGE SC (08:08)
--- NOTE | 2024-08-27 10:39 | PC.SS ---
Farzana Smith is 44-year-old female admitted Syncope. SS conducted bedside contact with the patient to complete initial assessment and to discuss discharge planning. Patient confirmed demographic information. Patient identifies her Storm Marie [phone] as her surrogate decision maker. Patient resides at home with her and Children. Pt states she is able to complete all ADL?s independently, no need for any source of DME. Pts PCP is Dr. English and her pharmacy of choice is [facility]. DC options discussed pt wishes to return home. Pts will provide transportation upon Discharge. No further intervention required at this time, social contact worker would be available to address any further concerns. DC Plan: Home Contact: Storm Marie [phone] PCP: Tameka
--- NOTE | 2024-08-27 11:20 | EKG_ITS ---
[facility] Test Date: 2024-08-27 Pat Name: ANA UMANA [facility] Gender[facility] Female Biologist Aide: DANNA : 1980 Requested By: Won Aldana Order Number: [id number] Reading MD: Won Aldana Measurements Intervals [place] Rate: 63 P: 15 MD: 129 QRS: 10 QRSD: 89 T: 29 QT: 406 QTc: 418 Interpretive Statements SINUS RHYTHM Compared to ECG 01/16/2024 00:04:23 Sinus tachycardia no longer present /[id number]/[id number]
[2024-08-27] MEDS: PROPRANOLOL 10 MG TABLET PO (13:31)
--- NOTE | 2024-08-27 17:38 | ESDS_ITS ---
<Statement entered by Ronda Talavera MD - 09/02/24 09:28> I reviewed above note and agree with findings and plans. I have also personally examined the patient with medicine team and went over assessment and plan with medical team including policy intern and resident physician. Planned Discharge Date 08/27/24 DS: Providers Provider Date of admission: 08/26/24 23:15 Primary care physician: Luis Carlos English MD Admitting Provider: Abena Bean MD Attending Provider on Admission: Ronda Talavera MD Consults: 08/26/24 23:18 Referral Physical Therapy Routine Comment: Physician Instructions: Attending Provider on DC: Torrey Cardenas MD Discharging Provider: Torrey Cardenas MD DS: Diagnosis Problem List Completed Was Problem List Reviewed/Reconciled?: Yes Hospital Course Hospital Course Hospital course: Patient is a 44-year-old female with a previous medical history of hypertension, anxiety, asthma, depression who came to the ED on 08/26/2024 due to general weakness, dizziness, chest pain, shortness of breath, palpitations and admitted for Presyncopal episode, cardiac vs panic attacks Hospital course: Initial vitals at the time of admission are significant for blood pressure 160/121. EKG showed sinus Rhythm. Labs showed WBC count 11.0, hemoglobin 12, platelets 425, D-dimer less than 250, sodium 139, potassium 3.7, BUN 9, creatinine 0.7, EGFR more than 60, glucose 113, corrected calcium 9, magnesium 2, troponin I was negative, AST 26, ALT 25, TSH 1.45, free T4 1.17. Iron panel in August 2024 showed ferritin of 6. UA was negative for signs of UTI. U tox was negative. Patient is admitted in the telemetry and did not show any signs of arrhythmia. Patient seems to be anxious on general examination. Recommended patient to follow-up on outpatient basis for Holter monitoring, cardiac workup. Patient is discharged to home with following medications and recommendations -Follow-up with PCP within 1 week of discharge. If you do not have appointment, please follow-up with the [facility] with Dr. Cardenas. Call [phone] to make an appointment. -Follow up with Manager Heart Dr. Prakash within 1 week of discharge for Holer monitoring in view of Presyncopal episodes. [facility] [phone] -Continue Propranolol 10mg for now -Return to ED if symptoms persist or return #General Weakness #Presyncopal episode #History of anxiety #History of depression Patient plan of care was discussed with the attending physician, Dr. Talavera and senior resident Dr. Katya Cardenas, PGY1 Time Spent with Patient Time attestation: Total time spent providing and/or coordinating discharge services: Time spent: Greater than 30 minutes Exam Vital Signs Temp Pulse Resp BP Pulse Ox O2 Del Method 98.7 F 77 18 126/91 H 94 L Room Air 08/27/24 12:00 08/27/24 14:57 08/27/24 12:00 08/27/24 14:57 08/27/24 12:00 08/27/24 12:00 Narrative Exam General: Awake. HEENT: Normocephalic, atraumatic, mucous membranes moist. Heart: Regular rate and rhythm, no murmurs. Lungs: Clear to auscultation with no wheezing or crackles. Abdomen: Soft, nondistended, nontender, positive bowel sounds. ?No guarding or rebound tenderness. Neurologic: Alert and oriented x3, no gross neurological deficit, and patient able to move all 4 extremities. Extremities: No edema. Skin: No rash or ecchymoses. Mild Discharge Plan Plan Patient Disposition: HOME (Self Care) Care Plan Goals: -Follow-up with PCP within 1 week of discharge. If you do not have appointment, please follow-up with the [facility] with Dr. Cardenas. Call [phone] to make an appointment. -Follow up with Manager [facility] Dr. Prakash within 1 week of discharge for Holer monitoring in view of Presyncopal episodes. [facility], -Continue Propranolol 10mg for now -Return to ED if symptoms persist or return Prescriptions/Referrals Prescriptions/Med Rec: Continued propranolol 10 mg tablet 10 mg PO 2XD Patient Comments: take 1 tablet by mouth twice a day Referrals: Luis Carlos English MD [Primary Care Provider] - Patient/Caregiver Discharge Instructions Education Materials: Your Heart's Electrical System, Exercise for a Healthier Heart, Your High Blood Pressure Risk Factors Print Language: Ghanaian Stand Alone Forms: [employer] Award Info., Patient Portal Info Letter, Work/Release Restrictions Discharge Order Discharge Orders: Discharge (Routine); Ordered 08/27/24 Ordered By: Torrey Cardenas Quality Discharge Quality Measures VTE prophylaxis
== END 2024-08-27 14:53 | disposition home or self-care (01) ==
LOC: SERX 23:22 → SERHOLD 08-27 06:09 → S3NX 08-27 06:09
PROVIDERS: Nurse Practitioner Primary Care; Registered Nurse General Practice; Admitting Provider Student in an Organized Health Care Education/Training Program; Emergency Provider Emergency Medicine; PCP Internal Medicine; Visit Provider Internal Medicine
DX: R55 Syncope and collapse (principal); F41.9 Anxiety disorder, unspecified; F32.A Depression, unspecified; J45.909 Unspecified asthma, uncomplicated; I16.0 Hypertensive urgency; I10 Essential (primary) hypertension; Z86.73 Personal history of transient ischemic attack (TIA), and cerebral infarction without residual deficits; Z01.810 Encounter for preprocedural cardiovascular examination
CPT/HCPCS: 36415; 71046; 80053; 80307; 81001; 81025; 82306; 83036; 83735; 83880; 84100; 84439; 84443; 84484; 84703; 85025; 85379; 85610; 85730; 87400; 87811; 93005; 96372; 97162; 99285; G0378; J0360; J1650; J2405; A9270

== ENCOUNTER 2024-08-28 13:59 | Inpatient (IN) | payer BC, SELFPAY ==
[2024-08-28] VITALS (21 sets, daily range): BP systolic 112–174; BP diastolic 82–110; PULSE 71–95; RESP 12–98; TEMP 36.8–37.4; O2SAT 95–100
--- NOTE | 2024-08-28 14:02 | EKG_ITS ---
[facility] Test Date: 2024-08-28 Pat Name: ANA UMANA Department: Room: - Gender: Female Management Coordinator: : 1980 Requested By: Krista Sutherland Order Number: [id number] Reading MD: Krista Sutherland Measurements Intervals Bryan Rate: 87 P: 9 FL: 138 QRS: 3 QRSD: 91 T: 22 QT: 359 QTc: 432 Interpretive Statements SINUS RHYTHM Compared to ECG 08/27/2024 12:13:34 No significant changes /store/S0/[id number].pdf
--- NOTE | 2024-08-28 14:02 | EDNOTE_ITS ---
<Statement entered by Krista Tuttle MD - 08/29/24 14:29> As co-signing physician, I was present and available for consult prn. I concur with the plan and care as documented by the midlevel provider. Neuro Symptoms Deficit-RME/HPI General Chief Complaint: Altered Mental Status Stated Complaint: STROKE Time Seen by Provider: 08/28/24 14:09 Arrival date/time: 08/28/24 13:59 RME / HPI RME / HPI Narrative: 44 year old female with history of hypertension and anxiety presents to the ED BIBA from work for evaluation of weakness today. 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 On their assessment, patient had difficulty speaking, obvious right facial droop, and weakness on the right upper extremity. Prehospital vital signs 178/100, HR 98 sinus rhythm, BS 142. While in the ED, patient mouths I can't talk . States she was at work when she began to feel sick , does not elaborate beyond that. States she was admitted here 2 days ago and discharged yesterday for high blood pressure. Denies fever, chills, sweating. Denies chest pain, cough, shortness of breath. Denies nausea, vomiting, diarrhea, constipation. Denies dysuria, urinary frequency and urgency. Related Data Home Medications ?Medication ?Instructions ?Recorded ?Confirmed propranolol 10 mg tablet 10 mg PO 2XD 01/16/24 Allergies Allergy/AdvReac Type Severity Reaction Status Date / Time No Known Allergies Allergy Verified 08/26/24 17:20 Review of Systems Review of Systems Narrative Review of Systems: GEN: No fever, no chills, no weight loss EYES: No discharge, no visual changes, no pain HEENT: No ear pain, no congestion, no sore throat PULM: No shortness of breath, no cough, no congestion CV: No chest pain, no palpitations GI: No nausea, no vomiting, no diarrhea, no pain, no constipation : No frequency, no urgency, no dysuria MUSC/SKEL: No joint pain, no back pain SKIN: No rash PSYCH: No hallucinations, no depression HEME/LYMPH: No easy bleeding or bruising tendencies NEURO: +global weakness, no headache, +difficulty speaking per patient, +left upper extremity weakness Past Medical History Past Medical History NEUROLOGIC: Positive Neurological Disorders and Transient Ischemic Attacks (TIA) CARDIAC: Positive Cardiac Disorders and Hypertension RESPIRATORY: Positive Asthma GASTROINTESTINAL: Positive Gastrointestinal Disorders and Gastrointestinal Bleed (BLOOD IN STOOL) REPRODUCTIVE: Positive Previous Pregnancies HEMATOLOGIC: Positive Anemia (SEVERE. HAD 5 IRON INFUSIONS) PSYCHO/SOCIAL: Positive Depression and Anxiety OTHER HISTORY: Positive Blood Transfusions Family History FAMILY HISTORY: Negative Family Psychiatric Problems, Family Respiratory Disorders, Family Cardiac Disorders, Family Gastrointestinal Problems, Family Cancer, Family Surgery or Family Anesthesia Reaction Surgical History SURGICAL: Positive Section Social History SMOKING STATUS: Never smoker SECOND HAND EXPOSURE: No SUBSTANCE USE: does not use ED Exam Narrative Physical exam: GENERAL APPEARANCE: alert and oriented x 4, well-developed, well-nourished, mild voice hoarseness with whispered speech HEENT: Normocephalic, atraumatic; pupils equal, round, reactive to light; EOMI; mucous membranes pink, moist; oropharynx clear NECK: Supple LUNGS: CTABL; no wheezes, no rales, no rhonchi HEART: Regular rate, regular rhythm; normal S1, S2; no murmurs ABDOMEN: non distended; normal BS; soft, no tenderness, no guarding, no rebound; no masses, no organomegaly, no hernia BACK: no CVA tenderness EXTREMITIES: atraumatic; no edema NEUROLOGIC: awake; alert and oriented x4; cranial nerves II-XII grossly intact; left upper extremity weakness, myoclonic jerking, no facial droop noted PSYCHIATRIC: appropriate mood and affect SKIN: warm, dry, normal color; no rashes Course Quality Measures Suspected type of Stroke: Unknown at this time (Small vessel CVA vs conversion disorder) Last known well (date): 08/28/24 Last known well (time): 12:00 Tenecteplase given: within 60 min of arrival stroke Orders Category Date Time Status Admit to Inpatient Status Routine Admission 08/28/24 16:12 Active Patient Condition Routine Admission 08/28/24 16:12 Ordered Assess for bleeding NEEDED Care 08/28/24 16:17 Active Bedrest NOW Care 08/28/24 16:14 Active Bedside Blood Glucose NOW Care 08/28/24 14:02 Active Senior Network Architect NOW Care 08/28/24 14:02 Active Continuous Pulse Oximetry NOW Care 08/28/24 14:02 Completed Continuous Pulse Oximetry NOW Care 08/28/24 16:17 Completed EKG (ED ONLY) *Do not use* NOW Care 08/28/24 14:02 Completed In and Out Catheter NEEDED Care 08/28/24 14:02 Active Insert IV NOW Care 08/28/24 14:02 Active MRI Screening NOW Care 08/28/24 16:18 Active NIH Stroke Scale [id number],QSHIFT Care 08/28/24 14:40 Active NIH Stroke Scale now Care 08/28/24 14:02 Active NPO NOW Care 08/28/24 14:02 Active NPO NOW Care 08/28/24 16:14 Active Neuro Check Q15M Care 08/28/24 14:40 Active Notify provider NEEDED Care 08/28/24 16:12 Active Nurse Swallow Screen X1 Care 08/28/24 16:17 Active Nurse Swallow Screen x1 Care 08/28/24 14:02 Active Vital Signs Q15M Care 08/28/24 14:40 Active Consult to Neurology / Tele-Neurology Routine Cons 08/28/24 14:02 Active Consult to Neurology / Tele-Neurology Routine Cons 08/28/24 16:16 Active Referral Physical Therapy Routine Cons 08/28/24 16:19 Active Referral Speech Therapy Routine Cons 08/28/24 16:19 Active Diet NPO (NOW) Diet 08/28/24 16:14 Active CA echo doppler complete Routine Exams 08/28/24 16:[address] angio stroke protocol Stat Exams 08/28/24 14:[address] head/brain wo con Routine Exams 08/29/24 14:[address] stroke protocol Stat Exams 08/28/24 14:02 Completed EKG (ED Only) Stat Exams 08/28/24 14:02 Draft MR stroke protocol Routine Exams 08/28/24 16:18 Ordered Alcohol, Blood Medical Stat Lab 08/28/24 14:23 Completed CBC Stat Lab 08/28/24 14:23 Completed Comprehensive Metabolic Panel Stat Lab 08/28/24 14:23 Completed Drug Screen,Urine Stat Lab 08/28/24 15:42 Completed HCG Titer if Positive Stat Lab 08/28/24 14:23 Completed Magnesium Stat Lab 08/28/24 14:23 Completed Partial Thromboplastin Time Stat Lab 08/28/24 14:23 Completed Prothrombin Time with INR Stat Lab 08/28/24 14:23 Completed TSH [Thyroid Stimulating Hormone] Stat Lab 08/28/24 14:23 Completed Troponin I Stat Lab 08/28/24 14:23 Completed Urinalysis Stat Lab 08/28/24 15:42 Completed Urine Culture Stat Lab 08/28/24 15:42 Received Acetaminophen Tab [Tylenol Tab] Med 08/28/24 16:12 Active 650 mg PO Q6H PRN Labetalol IV [Trandate IV] Med 08/28/24 14:25 Active 10 mg IVP PRNMRX1 PRN Nicardipine/Ns 20Mg Ivpb [Cardene Ivpb] Med 08/28/24 14:25 Active 20 mg in 200 ml IV 5 mg/hr Ondansetron Inj [Zofran Inj] Med 08/28/24 14:02 Active 4 mg IV Q4HR PRN Pantoprazole Inj [Protonix Inj] Med 08/28/24 16:20 Active 40 mg IVP QDAY Tenecteplase Inj [TNKase Inj] Med 08/28/24 14:25 Discontinued 23 mg IV X1 ONE Code Status Routine Oth 08/28/24 16:12 Ordered EKG (RT) Routine RT 08/28/24 16:18 Draft Oxygen Delivery NOW RT 08/28/24 14:02 Active Oxygen Delivery PRN RT 08/28/24 16:12 Active Vital Signs Vital signs: Vital Signs Pulse Rate 86 08/28/24 14:30 Neuro Symptoms / Deficit MDM Narrative MDM Narrative:: Valencia Tolbert am scribing for and in the presence of Dr. Tuttle. Patient data External records reviewed:: [facility] previous records (I reviewed admission from 08/26/2024 through 08/27/2024 for hypertension ) and EMS form Clinical information provided by:: patient and EMS Social determinants that could affect healthcare access:: mental health (anxiety) Patient has the following chronic illnesses:: HTN, anxiety How is presenting disease/condition affected by chronic disease/condition?: exacerbated by Evaluation data The following diagnostics were reviewed and interpreted by me:: lab results, radiology exam(s) and EKG tracing(s) (EKG @ 14:45 hours. Interpreted by me shows sinus rhythm, rate 87, no STEMI. ) Lab and/or radiology exams considered but not ordered:: None Interpretation Summary: Ordering Physician: Krista Tuttle MD Date of Service: 08/28/24 Procedure(s): CT stroke protocol Accession Number(s): [id number] cc: Ernie Sher MD; Krista Tuttle MD~ Examination: CT brain head without contrast. 2-D sagittal coronal reconstructions Date and time of exam:August 28, 2024 1404 hours INDICATIONS: Stroke alert, onset left-sided facial droop slurred speech today COMPARISON: June 04, 2022 CTDI: vol (mGy):59.8 DLP: (mGycm):1231 Technique: Multiple CT axial sections of the brain have been obtained, 5 mm slice thickness. Contrast has not been administered. 2-D sagittal, coronal reconstructions have been obtained Low dose protocols were performed. One or more of the following dose reduction techniques were used; automated exposure control, adjustment of the mA and/or KV according to patient size, use of iterative reconstruction technique. Findings: No significant ventricular enlargement. Intra-axial or extra-axial hemorrhage density is not seen. No mass effect or midline shift Basal cisterns are not remarkable. Fourth ventricle is midline. Cranial vault intact. Significant chronic pansinusitis Impression: Negative for acute hemorrhage, mass effect or midline shift Dictated By:Ernie Sher MD Signed By:<Electronically signed by Ernie Sher MD in OV>08/28/241416 Ordering Physician: Krista Tuttle MD Date of Service: 08/28/24 Procedure(s): CT angio stroke protocol Accession Number(s): [id number] cc: Ernie Sher MD; Krista Tuttle MD~ Examination: CTA carotids with intravenous contrast CTA brain, head with intravenous contrast. 2-D sagittal, coronal reconstructions. 3-D reconstructions. Exam date and time: August 28, 2024 1411 hours INDICATIONS: Stroke alert, onset facial droop weakness slurred speech today CTDI: vol (mGy) 11.8 DLP: (mGycm) 150 Technique: Multiple CTA axial brain, head carotid images post intravenous contrast injection 75 cc, [id number]. 2-D sagittal, coronal reconstructions. 3-D reconstructions, 3-D post processing including vascular maximum intensity projection images. Low dose protocols were performed. One or more of the following dose reduction techniques were used; automated exposure control, adjustment of the mA and/or KV according to patient size, use of iterative reconstruction technique. Findings: No common carotid carotid bifurcation or internal carotid artery stenoses Dominant left vertebral artery with no critical stenoses No cerebral large vessel arterial occlusions thrombus or dissection IMPRESSION: No significant neck arterial stenoses No cerebral large vessel arterial occlusions Dictated By:Ernie Sher MD Signed By:<Electronically signed by Ernie Sher MD in OV>08/28/24 1447 Medications / Prescriptions Medications or Prescriptions considered but not ordered:: None Medication administrations:: Medication Administration History Acetaminophen (Acetaminophen 325 Mg Tablet) 650 mg PO Q6H PRN PRN Reason: pain and Fever >100.4 Stop: 09/27/24 16:11 Nicardipine/Sodium Chloride (Cardene Ivpb) 20 mg in 200 mls @ 50 mls/hr IV .Q4H PRN; Protocol PRN Reason: Per Nicardipine Stroke Protocol Stop: 09/27/24 14:24 Labetalol HCl (Labetalol Inj 5 Mg/Ml Vial 20 Ml) 10 mg IVP PRNMRX1 PRN PRN Reason: SBP > 180 mmHg or DBP > 105 Ondansetron HCl (Ondansetron Inj 2 Mg/Ml Inj 2 Ml) 4 mg IV Q4HR PRN PRN Reason: NAUSEA OR VOMITING Stop: 09/27/24 14:01 Pantoprazole Sodium (Pantoprazole Inj 40 Mg Vial) 40 mg IVP QDAY ANDREWS Stop: 09/27/24 16:19 Discontinued Medications Tenecteplase (Tenecteplase Inj 50 Mg Vial) 23 mg IV X1 ONE Stop: 08/28/24 14:26 Last Admin: 08/28/24 14:50 Dose: 23 mg Documented By: EH Co-signed By: LF See above Consultations Consultation(s) initiated? (list below): Yes Consultation #1 (Physician, Specialty, Details): I spoke with teleneurologist Dr. Medley who recommends IV Tenecteplase. Time: 14:56 Consultation #2 (Physician, Specialty, Details): I spoke with voice network engineer Dr. Puentes. Discussed patients PMHx, HPI, ED course, exam findings, labs, and radiology results. The voice network engineer agrees to accept the patient for admission. Time: 15:30 Diagnosis Neuro Differential Diagnosis: subarachnoid hemorrhage, cerebrovascular accident, multiple sclerosis and transient cerebral ischemia Most likely diagnosis given after review of the tests above:: Left upper extremity weakness Admission Indicated Admission indicated?: indicated Admission Request Was there a request for admission?: Yes Admission Attestation Admission request attestation: Discussed case with [] from Hospitalist service regarding admission. Discussed patients ED course, exam findings, labs, and radiology results. The Hospitalist [agrees,declines] to accept the patient for admission. Disposition Plan Disposition Plan: Admit Critical Care Time Critical Care Time Critical Care Time: Yes Total Critical Care Time (min.): 35 Attestation: The high probability of sudden, clinically significant deterioration in the patient's condition required the highest level of my preparedness to intervene urgently. The services I provided to this patient were to treat and/or prevent clinically significant deterioration. Services included the following: chart data review, reviewing nursing notes and/or old charts, documentation time, animal nutrition consultant collaboration regarding findings and treatment options, medication orders and management, direct patient care, vital sign assessments and ordering, interpreting and reviewing diagnostic studies and lab tests. Aggregate critical care time includes only time during which I was engaged in work directly related to the patient's care, as described above, whether at bedside or elsewhere in the Emergency Department. It did not include time spent performing other reported procedures or the services of residents, students, nurses or physician assistants. Discharge Plan Plan Patient Disposition: Admit Acute Care w/in Hospital Disposition Comment: ICU Problem List Clinical Impression: Left arm weakness
[2024-08-28 14:33] LABS: Basophils # (Auto) 0.1 Thou/mm3 (0.0-0.2); Basophils % (Auto) 1 % (0-2.5); Eosinophils # (Auto) 0.8 Thou/mm3 (0.0-0.5); Eosinophils % (Auto) 8 % (0-10); Hematocrit 39.7 % (36.0-46.0); Hemoglobin 12.7 g/dL (12.0-16.0); Immature Granulocytes % (Auto) 0 % (0-0); Immature Granulocytes Auto 0.01 Thou/mm3 (0.00-0.00); Lymphocytes # (Auto) 2.9 Thou/mm3 (1.0-4.8); Lymphocytes % (Auto) 28 % (10-50); Mean Corpuscular Hemoglobin 23.6 pg (25.0-35.0); Mean Corpuscular Volume 74 fL (80-100); Monocytes # (Auto) 0.8 Thou/mm3 (0.0-0.8); Monocytes % (Auto) 8 % (0-12); Neutrophils # (Auto) 5.8 Thou/mm3 (1.8-7.7); Neutrophils % (Auto) 56 % (37-80); Nucleated Red Blood Cell % 0 /100 WBC (0); Platelet Count 432 Thou/mm3 (140-440); RDW Standard Deviation 46.4 fL (36.4-46.3); Red Blood Count 5.37 Miln/mm3 (4.00-5.20); White Blood Count 10.4 Thou/mm3 (3.6-11.0)
[2024-08-28 14:48] LABS: HCG Titer if Positive Negative
[2024-08-28] MEDS: TENECTEPLASE INJ 50 MG VIAL 23 MG IV (14:50)
[2024-08-28 14:51] LABS: Partial Thromboplastin Time 30.2 Seconds (22.0-36.0); Prothrombin Time 11.3 Seconds (9.0-12.2)
--- NOTE | 2024-08-28 14:59 | ESCONSULT_ITS ---
Tele Neuro Consultation Consultation Date 08/28/24 Most Recent Vital Signs Last Vital Signs Temp 99.4 F 08/28/24 14:57 Pulse 80 08/28/24 14:57 Resp 21 H 08/28/24 14:57 BP 144/99 H 08/28/24 14:57 Pulse Ox 95 08/28/24 14:57 O2 Del Method Room Air 08/28/24 14:57 Laboratory-Coagulation Panel PT 11.3 Seconds (9.0-12.2) 08/28/24 14:23 INR 1.0 (0.9-1.3) 08/28/24 14:23 APTT 30.2 Seconds (22.0-36.0) 08/28/24 14:23 Consultation Narrative [facility] Tele[facility]urology Consult Services Patient Name:???Farzana UMANA Date of :???1980 Identification Number:??? Date of Service:???08/28/2024 13:56:20 Diagnosis:?I63.89 - Cerebrovascular accident (CVA) due to other mechanism ([facility]) Impression: ?44 y/o with hx of HTN, anxiety,TIA, presenting with left sided weaknes LKN 12:00 pm. NIHSS of 2. Head CT w/o acute intracranial abnormalities. Patient stated this is debilitating symptom to her. No contraindications for thrombolytics. Risk and benefits were discussed, decided to proceed. ? ?Differentials: Small vessel CVA vs conversion disorder ? ?Recommendations: ?1. post TNK care ?2. SBP less than 180 systolic and less than 105 diastolic ?3. Stroke workup: ? -Brain MRI w/o ? -TTE with bubble ? -A1c, LDL, TSH ?4. PT/OT eval ? Our recommendations are outlined below. Recommendations: IV Tenecteplase recommended. I confirmed the following. (Patient name, , MRN, Blood Pressure, dose of Thrombolytic and waste, weight completed by stretcher/scale not stated weight, have ED staff inform ED MD of thrombolytic decision) Thrombolytic bolus given Without Complication. IV Tenecteplase Total Dose ? 23.9 mg (Dose Rounding Per Facility Protocol) Routine post Thrombolytic monitoring including neuro checks and blood pressure control during/after treatment Monitor blood pressure Check blood pressure and neuro assessment every 15 min for 2 h, then every 30 min for 6 h, and finally every hour for 16 h. Manage Blood Pressure per post Thrombolytic protocol. ? Follow designated hospital protocol for admission and post thrombolytic care ? CT brain 24 hours post Thrombolytic ? NPO until swallowing screen performed and passed ? No antiplatelet agents or anticoagulants (including heparin for DVT prophylaxis) in first 24 hours ? No Diallo catheter, nasogastric tube, arterial catheter or central venous catheter for 24 hr, unless absolutely necessary ? Telemetry ? Bedside swallow evaluation ? HOB less than 30 degrees ? Euglycemia ? Avoid hyperthermia, PRN acetaminophen ? Inpatient Neurology Consultation ? Stroke evaluation as per inpatient neurology recommendations Discussed with ED physician Metrics: Last Known Well: 08/28/2024 12:00:00 Dispatch Time: 08/28/2024 13:56:20 Arrival Time: 08/28/2024 14:04:29 Initial Response Time: 08/28/2024 14:04:00Symptoms: left sided weakness. Initial patient interaction: 08/28/2024 14:06:50 NIHSS Assessment Completed: 08/28/2024 14:12:44Patient is a candidate for Thrombolytic. Thrombolytic Medical Decision: 08/28/2024 14:12:47 Needle Time: 08/28/2024 14:51:46Weight Noted by Staff: 95.6 kg I personally Reviewed the CT Head and it Showed no acute intracranial abnormalities Primary Provider Notified of Diagnostic Impression and Management Plan on: 08/28/2024 14:56:23 Thrombolytic Contraindications: Last Known Well > 4.5 hours:?No CT Head showing hemorrhage:?No Ischemic stroke within 3 months:?No Severe head trauma within 3 months:?No Intracranial/intraspinal surgery within 3 months:?No History of intracranial hemorrhage:?No Symptoms and signs consistent with an SAH:?No GI malignancy or GI bleed within 21 days:?No Coagulopathy: Platelets <100 000 /mm3, INR >1.7, aPTT>40 s, or PT >15 s:?No Treatment dose of LMWH within the previous 24 hrs:?No Use of NOACs in past 48 hours:?No Glycoprotein IIb/IIIa receptor inhibitors use:?No Symptoms consistent with infective endocarditis:?No Suspected aortic arch dissection:?No Intra-axial intracranial neoplasm:?No Thrombolytic Decision and Management Plan: Management with thrombolytic treatment was explained to the Patient as was risks and benefits and alternatives to the treatment. Patient agrees with the decision to proceed with thrombolytic treatment. . All questions were answered and the Patient expressed understanding of the treatment plan. History of Present Illness:Patient is a 44 year old Female. Patient was brought by EMS for symptoms of left sided weakness. 44 y/o with hx of HTN, anxiety,TIA, presenting with left sided weakness. Left sided arm drift, smile droop on left side. Patient had similar symptoms 2 years ago. Patient denies hx of brain bleed, recent MD, recent surgery, or recent GI bleed. ? Past Medical History: ?Hypertension Medications: No Anticoagulant use? No Antiplatelet use Reviewed EMR for current medications Allergies:? Reviewed Social History: Patient Is: Single Smoking: No Alcohol Use: No Drug Use: No Family History: There is no family history of premature cerebrovascular disease pertinent to this consultation ROS : 14 Points Review of Systems was performed and was negative except mentioned in HPI. Past Surgical History: There Is No Surgical History Contributory To Today?s Visit ? Examination: BP(178/100),?Pulse(70),?Blood Glucose(120) 1A: Level of Consciousness - Alert; keenly responsive?+ 0 1B: Ask Month and Age - Both Questions Right?+ 0 1C: Blink Eyes & Squeeze Hands - Performs Both Tasks?+ 0 2: Test Horizontal Extraocular Movements - Normal?+ 0 3: Test Visual Rojas - No Visual Loss?+ 0 4: Test Facial Palsy (Use Grimace if Obtunded) - Normal symmetry?+ 0 5A: Test Left Arm Motor Drift - Drift, but doesn't hit bed?+ 1 5B: Test Right Arm Motor Drift - No Drift for 10 Seconds?+ 0 6A: Test Left Leg Motor Drift - Drift, but doesn't hit bed?+ 1 6B: Test Right Leg Motor Drift - No Drift for 5 Seconds?+ 0 7: Test Limb Ataxia (FNF/Heel-Craig) - No Ataxia?+ 0 8: Test Sensation - Normal; No sensory loss?+ 0 9: Test Language/Aphasia - Normal; No aphasia?+ 0 10: Test Dysarthria - Normal?+ 0 11: Test Extinction/Inattention - No abnormality?+ 0 NIHSS Score:?2 Pre-Morbid Modified Fabens Scale:1 Points = No significant disability despite symptoms; able to carry out all usual duties and activities Spoke with :?ED provider This consult was conducted in real time using interactive audio and video technology. Patient was informed of the technology being used for this visit and agreed to proceed. Patient located in hospital and provider located at home/office setting. Patient is being evaluated for possible acute neurologic impairment and high probability of imminent or life-threatening deterioration. I spent total of 60 minutes providing care to this patient, including time for face to face visit via telemedicine, review of medical records, imaging studies and discussion of findings with providers, the patient and/or family. Dr Hal Jon [facility] For Inpatient follow-up with [facility] physician please call [facility] at . As we are not an outpatient service for any post hospital discharge needs please contact the hospital for assistance. If you have any questions for the [facility] physicians or need to reconsult for clinical or diagnostic changes please contact us via [facility] at . ?
[2024-08-28 15:03] LABS: Alanine Aminotransferase 27 U/L (10-49); Albumin, Serum 4.5 gm/dL (3.5-5.0); Albumin/Globulin Ratio 1.4 (1.2-2.2); Alcohol, Blood Medical < 3.0 mg/dL (0-10.0); Alkaline Phosphatase 82 U/L (46-116); Anion Gap 7 (7-16); Aspartate Amino Transferase 30 U/L (0-34); BUN/Creatinine Ratio 23 Ratio (12-20); Bilirubin,Total 0.3 mg/dL (0.3-1.2); Blood Urea Nitrogen 18 mg/dL (9-23); Calcium 9.1 mg/dL (8.3-10.6); Calcium (Corrected) 9.1 mg/dL (8.5-10.1); Carbon Dioxide 24.4 mMol/L (20.0-31.0); Chloride 106 mMol/L (98-107); Creatinine (Component) 0.8 mg/dL (0.6-1.3); Globulin 3.3 gm/dL (2.3-3.5); Glucose 118 mg/dL (74-106); Magnesium 1.9 mg/dL (1.6-2.6); Osmolality,Calculated 276 (275-295); Potassium 3.8 mMol/L (3.4-5.1); Sodium 137 mMol/L (136-145); Thyroid Stimulating Hormone 1.11 uIU/mL (0.55-4.78); Total Protein 7.8 gm/dL (5.7-8.2); Troponin I < 0.002 ng/mL (0.0-0.045); eGFR > 60 See Note
--- NOTE | 2024-08-28 15:30 | PC.NURSE ---
AFTER MY INITIAL Q15 NUERO CHECK, PT HAD WEAKNESS ON THE LEFT SIDE, AFTER APPROX 10 MIN PAST, PT SUDDENLY BEND HER LEFT LEG WAS ABLE TO APPLIED FORCE TO THE FOOT OF THE BED WITH HER LEFT LEG AND WAS MIRELA TO PUSH HER SELF UP WITHOUT ASSISTANCES AND ADJUST HER SELF IN BED SHE WAS TALKING TO FAMILY.
[2024-08-28 15:49] LABS: Collection Type, Urine Clean Catch
[2024-08-28 15:55] LABS: Bilirubin,Urine Negative (Negative); Blood,Urine Negative (Negative); Clarity,Urine Clear (Clear/Hazy); Color,Urine Lt-Yellow (Lt Yel-Yel); Glucose, Urine Negative (Negative); Ketones,Urine Negative (Negative); Leukocyte Esterase,Urine Negative (Negative); Nitrite,Urine Negative (Negative); Protein,Urine Negative (Neg - Trace); RBC,Urine 7 /hpf (0-3); Specific Gravity,Urine 1.048 (1.001-1.035); Squamous Epithelial Cell,Urine 1 /hpf (0-5); Urobilinogen,Urine Negative mg/dL (0.0-1.0); WBC,Urine 1 /hpf (0-5)
[2024-08-28 16:01] LABS: Amphetamine/Methamp Scrn,U Negative (Negative); Barbiturate Screen,Urine Negative (Negative); Benzodiazepines Screen,Urine Negative (Negative); Benzoylecgonine Screen, Ur Negative (Negative); Fentanyl Screen,Urine Negative (Negative); Opiate Screen,Urine Negative (Negative); THC Screen,Urine Negative (Negative)
--- NOTE | 2024-08-28 16:09 | PC.NURSE ---
20g left AC, 18g right AC, and curiel catheter placed prior to TNK administration at 1450. NIH prior to TNK is 6. Patient was able to use her left leg to push herself up in the bed however continues to have drift to bed within seconds. Patient states she she still has numbness/tingling in the left side but feels as if the tingling has lessened. Still endorses blurred vision in left eye. Patient states she is upset that she was seen here yesterday and then sent home even though she advocated for herself and asked not to be released. Upon arrival patient was not speaking in a normal tone and was only able to whisper. After CT patient's voice came back to baseline. After ICU team came and assessed, patient went back to whispering and stated she could no longer talk in a normal tone and could only whisper again. Patient has been endorsing chest pressure. Second EKG ordered.
--- NOTE | 2024-08-28 16:17 | ECHO_ITS ---
Transthoracic Echo Report Ht (in): Wt (lb): 202 Exam Location: Echo Lab Status: Emergency Director Of Customer Acquisition: Dania Nunez Indications: Procedure Performed: BP: 115 / 70 HR: 65 Technical Quality: Technically difficult study MEASUREMENTS (Male / Female) Normal Values 2D ECHO LV Diastolic Diameter PLAX 4.0 cm 4.2 - 5.9 / 3.9 - 5.3 cm LV Systolic Diameter PLAX 2.5 cm IVS Diastolic Thickness 1.1 cm 0.6 - 1.0 / 0.6 - 0.9 cm LVPW Diastolic Thickness 1.2 cm 0.6 - 1.0 / 0.6 - 0.9 cm LV Relative Wall Thickness 0.6 LVOT Diameter 1.8 cm Aortic Root Diameter 2.8 cm LA Systolic Diameter LX 2.4 cm 3.0 - 4.0 / 2.7 - 3.8 cm LV Ejection Fraction MOD 4C 55.4 % LV Ejection Fraction 4C AL 56.3 % DOPPLER AV Peak Velocity 171.0 cm/s AV Peak Gradient 11.7 mmHg AV Mean Gradient 5.0 mmHg AV Velocity Time Integral 34.7 cm LVOT Peak Velocity 100.0 cm/s LVOT Peak Gradient 4.0 mmHg LVOT Velocity Time Integral 22.3 cm AV Area Cont Eq vti 1.6 cm? AV Area Cont Eq pk 1.5 cm? MV Area PHT 3.4 cm? Mitral E Point Velocity 56.3 cm/s Mitral A Point Velocity 62.6 cm/s Mitral E to A Ratio 0.9 LV E' Lateral Velocity 10.1 cm/s Mitral E to LV E' Lateral Ratio 5.6 LV E' Septal Velocity 7.5 cm/s Mitral E to LV E' Septal Ratio 7.5 PV Peak Velocity 105.0 cm/s PV Peak Gradient 4.4 mmHg FINDINGS Left Ventricle Normal left ventricular size, wall thickness, systolic function with no obvious regional wall motion abnormalities. Normal left ventricular diastolic filling pattern for age. The ejection fraction is visually estimated at 55-60%. Right Ventricle The right ventricle is normal in size and systolic function. Left Atrium The left atrium is normal by two-dimensional, color flow and Doppler imaging with no structural abnormalities, no thrombus formation present. Right Atrium The right atrium is normal by two-dimensional imaging, color flow and Doppler imaging with no structural abnormalities, no thrombus formation present. Atrial Septum The interatrial septum appears normal with no evidence of a shunt. Aorta The aorta is normal by two-dimensional, color flow and Doppler interrogation. Mitral Valve The mitral valve is normal by two-dimensional, color flow and Doppler interrogation. There is no significant mitral valve regurgitation, stenosis or prolapse. Aortic Valve The aortic valve is trileaflet and normal by two-dimensional, color flow and Doppler interrogation. There is no significant aortic valve regurgitation. Tricuspid Valve The tricuspid valve is normal by two-dimensional, color flow and Doppler interrogation. There is trace tricuspid valve regurgitation. Pulmonic Valve The pulmonic valve is not well visualized. There is no significant pulmonic valve regurgitation. Vessels The pulmonary artery appears normal. The inferior vena cava pulmonary and hepatic veins appear normal. Pericardium The pericardium is normal by two-dimensional imaging. There is no significant pericardial effusion. CONCLUSIONS Indication: bubble study stroke R/O Negative bubble study Normal LV size and function. Estimated EF 55-60% RV is normal in size and systolic function. Trace TR. Radha Farias (Electronically Signed) Final Date: 31 August 2024 07:18
--- NOTE | 2024-08-28 16:18 | EKG_ITS ---
[facility] Test Date: 2024-08-28 Pat Name: ANA UMANA Department: Room: - Gender: Female Principal Biostatistician: : 1980 Requested By: Kenroy Metz Order Number: [id number] Reading MD: Kenroy Metz Measurements Intervals [place] Rate: 71 P: 11 CT: 138 QRS: 9 QRSD: 90 T: 32 QT: 377 QTc: 412 Interpretive Statements SINUS RHYTHM Compared to ECG 08/28/2024 14:45:48 No significant changes /store/S0/[id number].pdf
--- NOTE | 2024-08-28 16:18 | XR_ITS ---
Examinations: MRI Brain without intravenous contrast. MRA brain without intravenous contrast. MRA carotids without intravenous contrast 3-D vascular reconstructions Date and time of exam: August 28, 2024 1849 hours INDICATIONS: Stroke alert today, onset difficulty speaking and right-sided facial droop and weakness in the right upper extremity Technique: Multiple axial and sagittal images of the brain have been obtained MRA brain carotid images without contrast obtained, including 3-D postprocessing, vascular maximum intensity projection images Findings: Sellaturcica is not enlarged. The optic chiasm and infundibular stalk are not remarkable. Prepontine and interpeduncular cisterns are not enlarged. No localized enlargement of the medulla or robin. Fourth ventricle and cerebellar tonsils normal in position. Subacute hemorrhage is not seen. Fourth ventricle is midline. Mass in the cerebellopontine angle region is not evident. 7th and 8th nerve complexes exhibits symmetry. Globes are symmetrical with no retro-orbital mass. Increased white matter signal not seen Diffusion-weighted images demonstrate no focus of restricted diffusion Mass-effect upon the ventricular system is not identified. MRA carotid images no carotid stenoses. MRA brain images no cerebral large vessel arterial occlusions Impression: Negative for acute hemorrhage mass effect or midline shift No acute infarct No MR findings diagnostic for demyelinating disease No cerebral large vessel arterial occlusions
--- NOTE | 2024-08-28 16:23 | PD.RESHP ---
Documentation for date of: 08/28/24 HPI History of Present Illness Chief complaint: L side weakness History of present illness: 44-year-old female with past medical history of hypertension, asthma, and iron deficiency anemia was admitted to the ICU on 08/28/2024 after coming to the ED with complaints of left-sided weakness. Patient stated that she was admitted to our hospital recently on Saturday due to feelings of weakness, dizziness, chest pressure, and shortness of breath, but that she was discharged yesterday and that she could return back to her daily activities. 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 She also mentioned that her left side of the body felt numb and weaker. She mentioned she does not remember quite what happened throughout the course of this neurological deficits before she came to the hospital. Patient states that she was well around noon time and the symptoms started around after lunchtime. Patient arrived to the ER in the window for TNK, teleneurology was consulted and she received TNK at 1450. She mentioned that she had a TIA in the past around 2 years ago, but is not on any medication for this at this time. She mentions that her only medication is the propranolol. She also stated that her father had multiple strokes in the past and he also had a brain aneurysm, which he last year from. She stated that her father's stroke started at an early age before 50s. She does not have any history of cardiac arrhythmias or PFO and she had not visited any physician prior for similar symptoms of shortness of breath, chest pressure, or feelings of weakness. ED course: Initial hypertensive and afebrile. Initial labs were unremarkable. Initial head CT and head/neck CTA were both negative for any acute hemorrhage, mass effect, midline shift, or any large vessel occlusion or stenosis. EKG showed sinus rhythm. Patient was given tenecteplase at 1450. PMH: As above Surgical Hx: Oophorectomy section. Medications: Propranolol FMH: Father had multiple strokes and brain aneurysm Review of Systems Review of Systems Narrative Review of Systems: Constitutional: Denies sweats, Denies weight loss/gain, Denies fever, Denies chills. HEENT: Denies hearing loss, Denies ear pain, Denies postnasal drip, Denies double vision, Denies blurry vision. Respiratory: admits shortness of breath, Denies cough, Denies wheezing. Cardiovascular: Admits chest pain, Denies palpitations, Denies sudden loss of consciousness. GI: Denies blood in stool, Denies constipation, Denies abdominal pain, Denies difficulty swallowing, Denies nausea or vomit. : Denies urinary incontinence, Denies pain while urinating, Denies increased urinary frequency. MSK: Denies joint pain, Denies joint swelling, Denies numbness. Skin: Denies rash, Denies itching, Denies easy bruising. Neuro: Denies headaches, Denies dizziness, Denies seizures, Admits L side weakness. Past Medical History Past Medical History NEUROLOGIC: Positive Neurological Disorders and Transient Ischemic Attacks (TIA) CARDIAC: Positive Cardiac Disorders and Hypertension RESPIRATORY: Positive Asthma GASTROINTESTINAL: Positive Gastrointestinal Disorders and Gastrointestinal Bleed (BLOOD IN STOOL) REPRODUCTIVE: Positive Previous Pregnancies HEMATOLOGIC: Positive Anemia (SEVERE. HAD 5 IRON INFUSIONS) PSYCHO/SOCIAL: Positive Depression and Anxiety OTHER HISTORY: Positive Blood Transfusions Family History FAMILY HISTORY: Negative Family Psychiatric Problems, Family Respiratory Disorders, Family Cardiac Disorders, Family Gastrointestinal Problems, Family Cancer, Family Surgery or Family Anesthesia Reaction Surgical History SURGICAL: Positive Section Social History SMOKING STATUS: Never smoker SECOND HAND EXPOSURE: No SUBSTANCE USE: does not use Exam Vital Signs Temp Pulse Resp BP Pulse Ox O2 Del Method 99.4 F 95 16 169/98 H 100 Room Air 08/28/24 14:57 08/28/24 16:00 08/28/24 16:00 08/28/24 16:00 08/28/24 16:00 08/28/24 16:00 Narrative Exam General: A/O x3, no acute distress, well-nourished, well-developed Eyes: PERRL, EOMI. Anicteric, vision grossly intact. Ears: No ear pain, no ear discharge, Hearing grossly intact. Nose: No nasal discharge. Mouth/Throat: Moist mucous membranes, no redness, no lesions. Neck: Neck supple, non-tender, no cervical lymphadenopathy. Lungs: Clear FER to auscultation and percussion, No accessory muscle use. Cardio: Normal S1/S2, regular rhythm, no murmurs, no JVD Abdomen: Soft, non-tender, no palpable masses, peristalsis present, no guarding or rebound. Extremities: Symmetrical, no significant deformities, no peripheral edema , non-tender, peripheral pulses presents. Skin: No rashes, no lesions, warm to touch. Neuro: Physical exam showed intact extraocular movements, frontal creases were present, no face asymmetry, able to follow pupils are equal, decrease sensation on the left side of the body when compared to the right side of the body, mild left arm drift, mildly decreased strength on the left hand director print 3/5, left lower leg strength mildly decreased 4/5 when compared to the right. Results: Labs 08/28/24 14:23 08/28/24 14:23 Labs: Short CBC 08/28/24 Range/Units 14:23 WBC 10.4 (3.6-11.0) Thou/mm3 Hgb 12.7 (12.0-16.0) g/dL Hct 39.7 (36.0-46.0) % Plt Count 432 (140-440) Thou/mm3 BMP 08/28/24 14:23 Sodium 137 Potassium 3.8 Chloride 106 Carbon Dioxide 24.4 BUN 18 Creatinine 0.8 Glucose 118 H Calcium 9.1 Cardiac Enzymes 08/28/24 Range/Units 14:23 Troponin I < 0.002 (0.0-0.045) ng/mL Liver Function 08/28/24 Range/Units 14:23 Total Bilirubin 0.3 (0.3-1.2) mg/dL AST 30 (0-34) U/L ALT 27 (10-49) U/L Alkaline Phosphatase 82 (46-116) U/L Albumin 4.5 (3.5-5.0) gm/dL Urine 08/28/24 Range/Units 15:42 Urine Color Lt-Yellow (Lt Yel-Yel) Urine Clarity Clear (Clear/Hazy) Urine pH 7.0 (5.0-7.0) Ur Specific [place] 1.048 H (1.001-1.035) Urine Protein Negative (Neg - Trace) Urine Glucose (UA) Negative (Negative) Quality Measures Quality Measures stroke Suspected type of Stroke: Unknown at this time Last known well (date): 08/28/24 Last known well (time): 12:00 Tenecteplase given: within 60 min of arrival Rehab services: PT evaluation ordered and Speech Language Pathology eval ordered VTE Prophylaxis: not indicated (post TNK) Antithrombotic by day 2:: ordered Statin ordered: <75 y/o high intensity dose Anticoagulation ordered for A-fib or flutter (current or hx): not indicated Medications Home Medications and Allergies Home Medications ?Medication ?Instructions ?Recorded ?Confirmed ?Type propranolol 10 mg tablet 10 mg PO 2XD 01/16/24 08/27/24 History Allergies Allergy/AdvReac Type Severity Reaction Status Date / Time No Known Allergies Allergy Verified 08/26/24 17:20 Visit Medications Acetaminophen (Acetaminophen 325 Mg Tablet) 650 mg PO Q6H PRN PRN Reason: pain and Fever >100.4 Stop: 09/27/24 16:11 Nicardipine/Sodium Chloride (Cardene Ivpb) 20 mg in 200 mls @ 50 mls/hr IV .Q4H PRN; Protocol PRN Reason: Per Nicardipine Stroke Protocol Stop: 09/27/24 14:24 Labetalol HCl (Labetalol Inj 5 Mg/Ml Vial 20 Ml) 10 mg IVP PRNMRX1 PRN PRN Reason: SBP > 185 mmHg and/or DBP > 110 Labetalol HCl (Labetalol Inj 5 Mg/Ml Vial 20 Ml) 10 mg IVP PRNMRX1 PRN PRN Reason: SBP > 180 mmHg or DBP > 105 Ondansetron HCl (Ondansetron Inj 2 Mg/Ml Inj 2 Ml) 4 mg IV Q4HR PRN PRN Reason: NAUSEA OR VOMITING Stop: 09/27/24 14:01 Pantoprazole Sodium (Pantoprazole Inj 40 Mg Vial) 40 mg IVP QDAY ANDREWS Stop: 09/27/24 16:19 Discontinued Medications Tenecteplase (Tenecteplase Inj 50 Mg Vial) 23 mg IV X1 ONE Stop: 08/28/24 14:26 Last Admin: 08/28/24 14:50 Dose: 23 mg Assessment & Plan Plan 44-year-old female with past medical history of hypertension, asthma, and iron deficiency anemia was admitted to the ICU on 08/28/2024 for stroke rule out status post tenecteplase. 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 She cannot feel her left side of her body and that she was having trouble moving her left side of the body. There was no face asymmetry as per patient. Patient was in window of TNK, was administered at 1450. NIHSS of 2 Teleneurology saw the patient and decided to proceed with tenecteplase In-house neurology consulted, appreciate recommendations Bedrest No labs, nasogastric tube, and arterial or central venous catheters, no antiplatelets or anticoagulation in first 24 hrs MRI ordered Head CT ordered post 24 hours of TNK administration Echo with bubble studies ordered Neurochecks every 15 minutes Keep systolic blood pressure below 180, but above 140 Labetalol IV 10 mg as needed for SBP above 180 and diastolic below 105 Referral to speech and physical therapy CVS: #Hypertension #Chest pressure Patient came in with blood pressure of 144/99 Patient was complaining of chest pressure Troponins were negative EKG showed sinus rhythm Repeat EKG Will keep patient's systolic blood pressure below 180, but above 140 for now Respiratory: #Hx of asthma #Shortness of breath Say that she has been using inhalers, feels her shortness of breath is not related to her asthma Patient saturating well on room air Renal: No active disease GI: No active disease Endo: No active disease Heme: #Hx of iron deficiency anemia Currently hemoglobin is at 12.7 ID: No active disease Hospital Maintenance: Diet: NPO DVT ppx: None for 24 hrs given TNK administration GI ppx: protonix IV lines: PIV Curiel: cuirel catheter Code status: Full code Dispo: ICU for Stroke R/O s/p TNK Case disclosed with Attending Dr. 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 Attending Provider Attestation/Addendum I saw this patient on admission in the ER with PGY 1 and PGY 3 residents I agree on the above assessment and plan Patient presented for the second time in 2 days with the symptoms of what appears to be anxiety symptoms Mixture of shortness of breath numbness on the left side and able to speak but only with whispering sound but was able to understand and say the words CAT scan of the head was negative CTA was negative no evidence of large vessel occlusion Pending MRI However teleneurology ordered the TNKase the patient received When we saw the patient her NIH score was 0 Patient is admitted to the ICU based on protocol for TNKase Will monitor the patient Her pressure was elevated so we will follow the guidelines for her pressure control I do recommend that patient should be on antianxiety medication Her heart score is 0 She does have family history of stroke with her dad but at age of 48 I do not recommend to continue with any aspirin or Plavix for her However MRI is going to be done tomorrow morning and that we will give us a final answer if this was a stroke or not Patient is good condition
--- NOTE | 2024-08-28 16:34 | PC.NURSE ---
Strength on the left arm has improved but is still weaker compared to the right. Patient states she has lost 15 pound in the last month and has a loss of appetite. She states that she has been getting very winded when she tries to walk.
[2024-08-28] MEDS: PANTOPRAZOLE INJ 40 MG VIAL IVP (17:10)
[2024-08-28] MEDS: SODIUM CHLORIDE 0.9% 1000 ML 1,000 ML 80 ML IV (17:11)
[2024-08-29] VITALS (23 sets, daily range): BP systolic 94–155; BP diastolic 71–106; PULSE 59–97; RESP 13–98; TEMP 36.4–37; O2SAT 96–100
[2024-08-29] MEDS: ACETAMINOPHEN 325 MG TABLET 650 MG PO ×2 (01:02→23:02)
--- NOTE | 2024-08-29 02:28 | PRELIM_ITS ---
CT scan of the head without intravenous contrast (axial sections with sagittal and coronal reformats). August 29, 2024 0140 hours Clinical History: 24 hr Post TNK Comparison: None Findings: There is no intracranial hemorrhage, extra-axial collection, mass, mass-effect or midline shift. There is good mathew-white differentiation. There is no CT evidence of acute large vascular territorial infarct. Ventricles are not enlarged or effaced. There is scattered paranasal sinus fluid/mucosal thickening. The tympanomastoid cavities are clear. The bony calvarium is intact. Impression: No intracranial hemorrhage, mass-effect or midline shift. No CT evidence of acute large vascular territorial infarct. Report Electronically Signed By: Arnaldo Resendez 08/29/2024 2:27:21 AM [EST]
--- NOTE | 2024-08-29 08:00 | PC.NURSE ---
IN TO ASSESS PT. PT RESTING QUIETLY AT THIS TIME WITH C/O WEAKNESS AND DECREASED SENSATION TO LEFT ARM AND LEG. V/S ASSESSED AND STABLE. DR. JOHNSON AT BEDSIDE TO UPDATE PT ON PLAN OF CARE. CALL LIGHT PLACED WITHIN REACH. PLAN OF CARE ONGOING.
--- NOTE | 2024-08-29 08:30 | PC.NURSE ---
SIGNIFICANT OTHER AT BEDSIDE.
--- NOTE | 2024-08-29 12:05 | ESPR_ITS ---
<Statement entered by Vale Cedillo MD - 08/30/24 18:21> TOTAL TIME: 45MINUTES ON DIRECT MEDICAL CARE, MANAGEMENT - COORDINATION AND COUNSELING > 50% OF TOTAL TIME patient seen and examined in ED with family (sister/) and ICU team at bedside. Symptoms of sob, chest pain/ pressure, loss of voice, fatigue, brain fog, depression, anxiety, N, V, loose stools - have all been intermittently been occuring at least for the last 1mo. She initially had inspiratory stridor and an barely audible voice, but as she began explaining all of her symptoms - her voice related problems were resolved completely, including the stridor, until we started discussing neurological ROS again. CT CVA and MRI negative From a CC standpoint of evaluation - I suspect that her mental health problems are the primary contributor to her extensive + ROS denies hiking or any recent travel, - therefore, doubt Lymes dz (also denies associated rash c/w Lymes - and negative on PE) Further neuro evaluation recommended to determine if another ddx could explain her left UE weakness. Inconsistent w/ MG, GBS, Botulism, etc from my standpoint If no further setbacks, okay to transfer to med/surg once 24hrs post lytics. Documentation for date of: 08/29/24 Subjective Subjective Interval history: 44-year-old female with past medical history of hypertension, asthma, and iron deficiency anemia was admitted to the ICU on 08/28/2024 after coming to the ED with complaints of left-sided weakness. Patient stated that she was admitted to our hospital recently on Saturday due to feelings of weakness, dizziness, chest pressure, and shortness of breath, but that she was discharged yesterday and that she could return back to her daily activities. 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 She also mentioned that her left side of the body felt numb and weaker. She mentioned she does not remember quite what happened throughout the course of this neurological deficits before she came to the hospital. Patient states that she was well around noon time and the symptoms started around after lunchtime. Patient arrived to the ER in the window for TNK, teleneurology was consulted and she received TNK at 1450. She mentioned that she had a TIA in the past around 2 years ago, but is not on any medication for this at this time. She mentions that her only medication is the propranolol. She also stated that her father had multiple strokes in the past and he also had a brain aneurysm, which he last year from. She stated that her father's stroke started at an early age before 50s. She does not have any history of cardiac arrhythmias or PFO and she had not visited any physician prior for similar symptoms of shortness of breath, chest pressure, or feelings of weakness. 08/29/2024: Patient was seen and examined at bedside this morning. No overnight events. Patient's left arm and left weakness seem to be improving, but still complaining of some heaviness in her left side. She was also complaining of hoarse voice where she was barely audible due to a hoarse voice and low volume. When her speech therapist went to evaluate the patient she started hyperventilating and with some inspiratory stridor when she did patient swallow eval. On assessment when talking to patient some inspiratory stridor was initially appreciated along with hoarse voice and low volume while talking about what was going on currently, but these seem to have disappear throughout the conversation while asking how she was feeling prior and how she was feeling at home before all this started. On physical exam patient's frontal creases and extraocular movements were intact and there was no face asymmetry. Patient was able to describe sensation on the left lower extremity when pressure was being placed on left lower extremity and right lower extremity interchanging between them. Patient started mentioning that she had multiple symptoms including chest pressure, weakness, nausea, urge to defecate, elevated heart rate patient's MRI came back negative along with repeat head CT this morning which came back negative. At this time patient is stable enough to be downgraded to the medical floors. Exam Vital Signs Temp Pulse Resp BP Pulse Ox O2 Del Method 98.4 F 74 16 130/96 H 97 Room Air 08/29/24 11:15 08/29/24 11:15 08/29/24 11:15 08/29/24 11:15 08/29/24 11:15 08/29/24 11:15 Narrative Exam General: A/O x3, no acute distress, well-nourished, well-developed Eyes: PERRL, EOMI. Anicteric, vision grossly intact. Ears: No ear pain, no ear discharge, Hearing grossly intact. Nose: No nasal discharge. Mouth/Throat: Moist mucous membranes, no redness, no lesions. Neck: Neck supple, non-tender, no cervical lymphadenopathy. Lungs: Clear FER to auscultation and percussion, No accessory muscle use. Cardio: Normal S1/S2, regular rhythm, no murmurs, no JVD Abdomen: Soft, non-tender, no palpable masses, peristalsis present, no guarding or rebound. Extremities: Symmetrical, no significant deformities, no peripheral edema , non-tender, peripheral pulses presents. Skin: No rashes, no lesions, warm to touch. 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 Objective Labs 08/28/24 14:23 08/28/24 14:23 Labs: Laboratory Results - last 24 hr 08/28/24 08/28/24 14:23 15:42 WBC 10.4 RBC 5.37 H Hgb 12.7 Hct 39.7 MCV 74 L MCH 23.6 L MCHC 32.0 RDW Std Deviation 46.4 H Plt Count 432 Neut % (Auto) 56 Lymph % (Auto) 28 [place] % (Auto) 8 Eos % (Auto) 8 Baso % (Auto) 1 Neut # (Auto) 5.8 Lymph # (Auto) 2.9 [place] # (Auto) 0.8 Eos # (Auto) 0.8 H Baso # (Auto) 0.1 Immature Gran # (Auto) 0.01 H Absolute Nucleated RBC 0.00 Immature Gran % 0 Nucleated RBC % 0 PT 11.3 INR 1.0 APTT 30.2 Sodium 137 Potassium 3.8 Chloride 106 Carbon Dioxide 24.4 Anion Gap 7 BUN 18 Creatinine 0.8 Estim Creat Clear Calc Not Performed. eGFR > 60 BUN/Creatinine Ratio 23 H Glucose 118 H Calculated Osmolality 276 Calcium 9.1 Corrected Calcium 9.1 Magnesium 1.9 Total Bilirubin 0.3 AST 30 ALT 27 Alkaline Phosphatase 82 Troponin I < 0.002 Total Protein 7.8 Albumin 4.5 Globulin 3.3 Albumin/Globulin Ratio 1.4 TSH 1.11 Ur Collection Type Clean Catch Urine Color Lt-Yellow Urine Clarity Clear Urine pH 7.0 Ur Specific [place] 1.048 H Urine Protein Negative Urine Glucose (UA) Negative Urine Ketones Negative Urine Blood Negative Urine Nitrite Negative Urine Bilirubin Negative Urine Urobilinogen (Auto) Negative Ur Leukocyte Esterase Negative Urine RBC 7 H Urine WBC 1 Ur Squamous Epith Cells 1 Urine Bacteria None Urine Opiates Screen Negative Urine Fentanyl Screen Negative Ur Barbiturates Screen Negative U Amphetamin/Meth Scrn Negative U Benzodiazepines Scrn Negative U Cocaine Metab Screen Negative U Marijuana (THC) Screen Negative Ethyl Alcohol < 3.0 HCG (Qual) Negative Quality Measures Quality Measures stroke Suspected type of Stroke: Unknown at this time Last known well (date): 08/28/24 Last known well (time): 12:00 Tenecteplase given: within 60 min of arrival Rehab services: PT evaluation ordered and Speech Language Pathology eval ordered VTE Prophylaxis: mechanical Antithrombotic by day 2:: not indicated (describe) Statin ordered: <75 y/o high intensity dose Anticoagulation ordered for A-fib or flutter (current or hx): not indicated Assessment & Plan Assessment Current Active Medications: Generic Name Dose Route Start Last Admin Trade Name Freq PRN Reason Stop Dose Admin Acetaminophen 650 mg 08/28/24 16:12 08/29/24 01:02 Acetaminophen 325 Mg Tablet PO 09/27/24 16:11 650 mg Q6H PRN Administration pain and Fever >100.4 Atorvastatin Calcium 80 mg 08/28/24 21:00 08/29/24 05:42 Atorvastatin Calcium 20 Mg Tablet PO 09/27/24 20:59 Not Given HS ANDREWS Nicardipine/Sodium Chloride 20 mg in 200 mls @ 50 mls/hr 08/28/24 14:25 Cardene Ivpb IV 09/27/24 14:24 .Q4H PRN Per Nicardipine Stroke Protocol Protocol 5 MG/HR Labetalol HCl 10 mg 08/28/24 14:25 Labetalol Inj 5 Mg/Ml Vial 20 Ml IVP PRNMRX1 PRN SBP > 180 mmHg or DBP > 105 Ondansetron HCl 4 mg 08/28/24 14:02 Ondansetron Inj 2 Mg/Ml Inj 2 Ml IV 09/27/24 14:01 Q4HR PRN NAUSEA OR VOMITING Pantoprazole Sodium 40 mg 08/28/24 16:20 08/28/24 17:10 Pantoprazole Inj 40 Mg Vial IVP 09/27/24 16:19 40 mg QDAY ANDREWS Administration Plan 44-year-old female with past medical history of hypertension, asthma, and iron deficiency anemia was admitted to the ICU on 08/28/2024 for stroke rule out status post tenecteplase. 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 NIHSS of 2 Today patient still having some left-sided weakness with decrease sensation, but improved from yesterday Patient's clinical picture does not fit a clear diagnosis at this time, but imaging showed no signs of stroke in this admission MRI with MRA was negative Head CT post 24 hours was also negative Echo with bubble studies pending Neurochecks every 4 hours Keep systolic blood pressure below 180 Labetalol 10 mg IV as needed Aspirin 81 mg qday Referral to speech and physical therapy CVS: #Hypertension #Chest pressure Patient came in with blood pressure of 144/99 Patient was complaining of chest pressure Troponins were negative EKG showed sinus rhythm Repeat EKG showed sinus rhythm Respiratory: #Hx of asthma #Shortness of breath, improving Patient saturating well on room air Renal: No active disease GI: No active disease Endo: No active disease Heme: #Hx of iron deficiency anemia Initial hemoglobin is at 12.7 ID: No active disease Hospital Maintenance: Diet: regular DVT ppx: SCDs GI ppx: protonix IV lines: PIV Curiel: curiel catheter Code status: Full code Dispo: Downgraded to medical floors Case disclosed with Attending Dr. Nguyen Metz PGY1 Disclaimer: This note was dictated by speech recognition, therefore there may be minor errors in automotive parts manager due to voice.
--- NOTE | 2024-08-29 14:50 | XR_ITS ---
Examination: CT brain head without contrast. 2-D sagittal coronal reconstructions Date and time of exam:August 29, [address] stroke alert August 28, 2024 INDICATIONS: 24 hours post thrombolytic therapy CTDI: vol (mGy):53.7 DLP: (mGycm):1128 Technique: Multiple CT axial sections of the brain have been obtained, 5 mm slice thickness. Contrast has not been administered. 2-D sagittal, coronal reconstructions have been obtained Low dose protocols were performed. One or more of the following dose reduction techniques were used; automated exposure control, adjustment of the mA and/or KV according to patient size, use of iterative reconstruction technique. Findings: No significant ventricular enlargement. Intra-axial or extra-axial hemorrhage density is not seen. No mass effect or midline shift Basal cisterns are not remarkable. Fourth ventricle is midline. Cranial vault intact. Impression: No interval acute hemorrhage, mass effect or midline shift
--- NOTE | 2024-08-29 15:41 | ESPR_ITS ---
Documentation for date of: 08/29/24 Subjective Subjective Interval history: 44-year-old female with past medical history of hypertension, asthma, and iron deficiency anemia was admitted to the ICU on 08/28/2024 after coming to the ED with complaints of left-sided weakness. Patient stated that she was admitted to our hospital recently on Saturday due to feelings of weakness, dizziness, chest pressure, and shortness of breath, but that she was discharged yesterday and that she could return back to her daily activities. 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 She also mentioned that her left side of the body felt numb and weaker. She mentioned she does not remember quite what happened throughout the course of this neurological deficits before she came to the hospital. Patient states that she was well around noon time and the symptoms started around after lunchtime. Patient arrived to the ER in the window for TNK, teleneurology was consulted and she received TNK at 1450. She mentioned that she had a TIA in the past around 2 years ago, but is not on any medication for this at this time. She mentions that her only medication is the propranolol. She also stated that her father had multiple strokes in the past and he also had a brain aneurysm, which he last year from. She stated that her father's stroke started at an early age before 50s. She does not have any history of cardiac arrhythmias or PFO and she had not visited any physician prior for similar symptoms of shortness of breath, chest pressure, or feelings of weakness. 08/29/2024: Patient was seen and examined at bedside today. Got the signout from my colleague Dr. Lauro Metz. Patient initially came in because of left-sided weakness with left hemiplegia in the face and upper extremities. On examination patient loses her voice and it comes back inconsistently. Repeat CT of the head today was negative for acute hemorrhage mass effect or midline shift. MRI did not show any lesions. Will follow-up with neurology, recommendations. Exam Vital Signs Temp Pulse Resp BP Pulse Ox O2 Del Method 98.4 F 71 19 148/90 H 97 Room Air 08/29/24 15:00 08/29/24 15:00 08/29/24 15:00 08/29/24 15:00 08/29/24 15:00 08/29/24 15:00 Narrative Exam Constitutional: Well nourished and in no acute distress Head: Normocephalic/Atraumatic Eyes: PERRL , no conjunctival injection , symmetrical lids. ENMT: Moist Mucous Membranes, No trauma or injury. Neck: Supple to palpation, No JVD CVS: RRR, S1 and S2 present, no murmurs, rubs or gallops . RESP: CTAB, no SOB, no rales, rhonchi or wheezing. No respiratory Distress GI: Normal BS, Nontender/Nondistended. MSK: Full range of motion, No trauma or deformities or masses. Skin: Warm to touch, Dry. No rashes or lesions. No hematomas Neuro: certified substance abuse counselor II-XII grossly intact. Sensation is decreased on the left face and upper extremity. 5/6 strength in upper and lower extremity with tremors in the left upper extremities. Psych: (AAO) x3 . Appropriate mood and affect. Objective Labs 08/30/24 05:34 08/30/24 05:34 Labs: Laboratory Results - last 24 hr 08/28/24 15:42 Ur Collection Type Clean Catch Urine Color Lt-Yellow Urine Clarity Clear Urine pH 7.0 Ur Specific [place] 1.048 H Urine Protein Negative Urine Glucose (UA) Negative Urine Ketones Negative Urine Blood Negative Urine Nitrite Negative Urine Bilirubin Negative Urine Urobilinogen (Auto) Negative Ur Leukocyte Esterase Negative Urine RBC 7 H Urine WBC 1 Ur Squamous Epith Cells 1 Urine Bacteria None Urine Opiates Screen Negative Urine Fentanyl Screen Negative Ur Barbiturates Screen Negative U Amphetamin/Meth Scrn Negative U Benzodiazepines Scrn Negative U Cocaine Metab Screen Negative U Marijuana (THC) Screen Negative Quality Measures Quality Measures stroke Suspected type of Stroke: Unknown at this time Last known well (date): 08/28/24 Last known well (time): 12:00 Tenecteplase given: within 60 min of arrival Rehab services: PT evaluation ordered VTE Prophylaxis: pharmaceutical Antithrombotic by day 2:: ordered Statin ordered: <75 y/o high intensity dose Anticoagulation ordered for A-fib or flutter (current or hx): not indicated Assessment & Plan Assessment Current Active Medications: Generic Name Dose Route Start Last Admin Trade Name Freq PRN Reason Stop Dose Admin Acetaminophen 650 mg 08/28/24 16:12 08/29/24 01:02 Acetaminophen 325 Mg Tablet PO 09/27/24 16:11 650 mg Q6H PRN Administration pain and Fever >100.4 Atorvastatin Calcium 80 mg 08/28/24 21:00 08/29/24 05:42 Atorvastatin Calcium 20 Mg Tablet PO 09/27/24 20:59 Not Given HS ANDREWS Nicardipine/Sodium Chloride 20 mg in 200 mls @ 50 mls/hr 08/28/24 14:25 Cardene Ivpb IV 09/27/24 14:24 .Q4H PRN Per Nicardipine Stroke Protocol Protocol 5 MG/HR Labetalol HCl 10 mg 08/28/24 14:25 Labetalol Inj 5 Mg/Ml Vial 20 Ml IVP PRNMRX1 PRN SBP > 180 mmHg or DBP > 105 Ondansetron HCl 4 mg 08/28/24 14:02 Ondansetron Inj 2 Mg/Ml Inj 2 Ml IV 09/27/24 14:01 Q4HR PRN NAUSEA OR VOMITING Pantoprazole Sodium 40 mg 08/28/24 16:20 08/28/24 17:10 Pantoprazole Inj 40 Mg Vial IVP 09/27/24 16:19 40 mg QDAY ANDREWS Administration Plan 44-year-old female with past medical history of hypertension, asthma, and iron deficiency anemia was admitted to the ICU on 08/28/2024 for stroke rule out status post tenecteplase. #Stroke rule out, s/p TNK #Left-sided weakness Patient was in window of TNK, was administered at 1450. NIHSS of 2 Today patient still having some left-sided weakness with decrease sensation, but improved from yesterday Patient's clinical picture does not fit a clear diagnosis at this time, but imaging showed no signs of stroke in this admission MRI with MRA was negative Head CT post 24 hours was also negative Echo with bubble studies pending Neurochecks every 4 hours Keep systolic blood pressure below 180 Labetalol 10 mg IV as needed Aspirin 81 mg qday Referral to speech and physical therapy ?Pending in-house neuro recommendations #Hypertension #Chest pressure Patient came in with blood pressure of 144/99, he does Patient is well score is 0, very low risk of PE. Given that the patient get TPA Patient was complaining of chest pressure Troponins were negative EKG showed sinus rhythm Repeat EKG showed sinus rhythm Echocardiogram ordered #Hx of asthma #Shortness of breath, improving Patient saturating well on room air #Hx of iron deficiency anemia Initial hemoglobin is at 12.7 Hospital Maintenance: Diet: regular DVT ppx: SCDs GI ppx: protonix IV lines: PIV Curiel: curiel catheter Code status: Full code Dispo: Downgraded to medical floors I discussed patient's care with attending physician, Dr Tameka Shepard PGY3 Attending Provider Attestation/Addendum Patient seen and examined with resident physician Dr. Shepard. Note reviewed, agree with findings and recommendations. at bedside in the emergency department. Patient in ICU status. Status post tPA yesterday. While we were talking her voice became slow and not audible. Had a long conversation with the patient regarding the triggers for depression/anxiety although she denied. 2 CTs negative. MRI negative. Not quite sure exact etiology. Spoke to Dr. William who will come and see the patient. Spoke to ICU team. Clinically she seems to have mild weakness/ tremors in the left side.
--- NOTE | 2024-08-29 17:24 | PD.NEUROCONS ---
History of Present Illness Data of Consult Requesting Physician: Joana Puentes MD Primary Care Provider: Luis Carlos English MD Consult Narrative History of present illness: Patient initially came in because of left-sided weakness with left hemiplegia in the face and upper extremities. On examination patient loses her voice when she gany ets up with BP elevation and it comes back inconsistently. CT of the head today was negative for acute hemorrhage mass effect or midline shift. MRI did not show any lesions. She did receive TPA which did not change any manifestation. She has had similar episodes in the past and the workup inlcuding at [facility] as well all of which were negative. cc:: cc: Joana Puentes MD Review of Systems Review of Systems Narrative Review of Systems: Constitutional: Denies sweats, Denies weight loss/gain, Denies fever, Denies chills. HEENT: Denies hearing loss, Denies ear pain, Denies postnasal drip, Denies double vision, Denies blurry vision. Respiratory: admits shortness of breath, Denies cough, Denies wheezing. Cardiovascular: Admits chest pain, Denies palpitations, Denies sudden loss of consciousness. GI: Denies blood in stool, Denies constipation, Denies abdominal pain, Denies difficulty swallowing, Denies nausea or vomit. : Denies urinary incontinence, Denies pain while urinating, Denies increased urinary frequency. MSK: Denies joint pain, Denies joint swelling, Denies numbness. Skin: Denies rash, Denies itching, Denies easy bruising. Neuro: Denies headaches, Denies dizziness, Denies seizures, Admits L side weakness. Meds Home Medications and Allergies Home Medications ?Medication ?Instructions ?Recorded ?Confirmed ?Type propranolol 10 mg tablet 10 mg PO 2XD 01/16/24 08/27/24 History Allergies Allergy/AdvReac Type Severity Reaction Status Date / Time No Known Allergies Allergy Verified 08/26/24 17:20 Exam - Neurology Vital Signs Temp Pulse Resp BP Pulse Ox O2 Del Method 98.3 F 68 15 132/92 H 98 Room Air 08/29/24 15:55 08/29/24 15:55 08/29/24 15:55 08/29/24 15:55 08/29/24 15:55 08/29/24 15:55 Narrative Exam GENERAL APPEARANCE: Well hydrated, well-nourished in no acute distress. HEENT: Normocephalic, atraumatic, extraocular movements intact. Pupils: Equal reacting to light and accommodation. Throat without erythema or exudate. Moist oral mucosa. NECK: Supple, no JVD or bruits. CARDIOVASULAR: Heart: S1, S2 heard, regular without S3-S4 or murmur no rubs or gallops. LUNGS/CHEST: Clear to auscultation bilaterally. No rails, rhonchi, or wheezing. Normal inspection. ABDOMEN: Soft, nontender, with normal bowel sounds. No pulsatile masses. No rebound, rigidity, or guarding. Normal inspection and palpation. EXTREMITIES: Normal inspection and palpation. No edema, clubbing or cyanosis. SKIN: Warm and dry without rashes. Normal inspection. MUSCULOSKELETAL: No cervical, thoracic, lumbar or midline bony tenderness. Normal inspection. NEURO: Alert, awake and oriented x3. Cranial nerves: II through XII grossly intact. Speech and language: Normal with no dysarthria or dysphasia. Motor system: Tone and bulk: Normal: Strength: 5 out of 5 in all 4 extremities; No pronator drift noted. Deep tendon reflexes: 2+ bilaterally symmetrical. Plantar reflex: Downgoing bilaterally. Sensory system: Intact to all modalities of sensation bilaterally. Coordination: Intact to [id number] and saau-kduh-gvch test bilaterally. No ataxia, no dysmetria, or dysdiadochokinesia noted. No intention tremors noted. Gait: Not tested. No signs of meningeal irritation noted. PSYCHIATRIC: Normal mood and affect. Results Labs 08/30/24 05:34 08/30/24 05:34 Assessment & Plan Assessment and plan (1) Acute left hemiparesis: Status: Acute Assessment and plan: S/P thrombolytic therapy. Reassured her regarding the negative MRI brain and CT head. likely from anxiety Will benefit from trying Lexapro daily and Xanax as needed at the onset of her anxiety symptoms/panic attack. No need for any interventions such as LP at this time. (2) Hypertension: Status: Acute Assessment and plan: continue with BP mgt if needed, but consider alternative meds like Lisinopril or Losartan in place of Propranolol as she could have exercise induced asthma. she states that she does use bronchodilator therapy at times. . (3) Left-sided headache: Status: Acute Assessment and plan: Could be secondary to hypertension/anxiety. consider trying Lexapro for dual benefits.
[2024-08-29 19:04] LABS: D-Dimer < 250 ng/mL (<600)
--- NOTE | 2024-08-29 19:50 | PC.NURSE ---
REPORT GIVEN TO FLOOR RN KATJA
[2024-08-29] MEDS: ATORVASTATIN CALCIUM 20 MG TABLET 80 MG PO (20:30)
[2024-08-30] VITALS (14 sets, daily range): BP systolic 112–160; BP diastolic 70–103; PULSE 60–90; RESP 15–99; TEMP 36.1–36.3; O2SAT 96–99
[2024-08-30 06:36] LABS: Alanine Aminotransferase 22 U/L (10-49); Albumin, Serum 3.9 gm/dL (3.5-5.0); Albumin/Globulin Ratio 1.4 (1.2-2.2); Alkaline Phosphatase 61 U/L (46-116); Anion Gap 8 (7-16); Aspartate Amino Transferase 25 U/L (0-34); BUN/Creatinine Ratio 25 Ratio (12-20); Bilirubin,Total 0.5 mg/dL (0.3-1.2); Blood Urea Nitrogen 15 mg/dL (9-23); Calcium 8.9 mg/dL (8.3-10.6); Carbon Dioxide 24.6 mMol/L (20.0-31.0); Cardiac Risk Estimate 3.4 RATIO (3.7-5.6); Chloride 107 mMol/L (98-107); Cholesterol 135 mg/dL (132-200); Creatinine (Component) 0.6 mg/dL (0.6-1.3); Globulin 2.8 gm/dL (2.3-3.5); Glucose 85 mg/dL (74-106); HDL Cholesterol 40 mg/dL (40-60); LDL Cholesterol,Calculated 79 mg/dL (0-130); Osmolality,Calculated 279 (275-295); Potassium 3.8 mMol/L (3.4-5.1); Sodium 140 mMol/L (136-145); Total Protein 6.7 gm/dL (5.7-8.2); Triglycerides 79 mg/dL (30-150); eGFR > 60 See Note
[2024-08-30 06:49] LABS: Basophils # (Auto) 0.1 Thou/mm3 (0.0-0.2); Basophils % (Auto) 1 % (0-2.5); Eosinophils # (Auto) 0.7 Thou/mm3 (0.0-0.5); Eosinophils % (Auto) 7 % (0-10); Hematocrit 35.5 % (36.0-46.0); Hemoglobin 11.3 g/dL (12.0-16.0); Immature Granulocytes % (Auto) 0 % (0-0); Immature Granulocytes Auto 0.03 Thou/mm3 (0.00-0.00); Lymphocytes # (Auto) 2.4 Thou/mm3 (1.0-4.8); Lymphocytes % (Auto) 24 % (10-50); Mean Corpuscular HGB Conc 31.8 g/dl (31.0-37.0); Mean Corpuscular Hemoglobin 24.2 pg (25.0-35.0); Mean Corpuscular Volume 76 fL (80-100); Monocytes # (Auto) 0.8 Thou/mm3 (0.0-0.8); Monocytes % (Auto) 8 % (0-12); Neutrophils # (Auto) 5.8 Thou/mm3 (1.8-7.7); Neutrophils % (Auto) 59 % (37-80); Nucleated Red Blood Cell % 0 /100 WBC (0); Platelet Count 372 Thou/mm3 (140-440); RDW Standard Deviation 46.8 fL (36.4-46.3); Red Blood Count 4.67 Miln/mm3 (4.00-5.20); White Blood Count 9.8 Thou/mm3 (3.6-11.0)
--- NOTE | 2024-08-30 09:12 | ESPR_ITS ---
Documentation for date of: 08/30/24 Subjective Subjective Interval history: Ms. Smith is a 44-year-old female with past medical history of hypertension, asthma, and iron deficiency anemia was admitted to the ICU on 08/28/2024 after coming to the ED with complaints of left-sided weakness. Patient stated that she was admitted to our hospital recently on Saturday due to feelings of weakness, dizziness, chest pressure, and shortness of breath, but that she was discharged yesterday and that she could return back to her daily activities. 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 She also mentioned that her left side of the body felt numb and weaker. She mentioned she does not remember quite what happened throughout the course of this neurological deficits before she came to the hospital. Patient states that she was well around noon time and the symptoms started around after lunchtime. Patient arrived to the ER in the window for TNK, teleneurology was consulted and she received TNK at 1450. She mentioned that she had a TIA in the past around 2 years ago, but is not on any medication for this at this time. She mentions that her only medication is the propranolol. She also stated that her father had multiple strokes in the past and he also had a brain aneurysm, which he last year from. She stated that her father's stroke started at an early age before 50s. She does not have any history of cardiac arrhythmias or PFO and she had not visited any physician prior for similar symptoms of shortness of breath, chest pressure, or feelings of weakness. 08/29/2024: Patient was seen and examined at bedside today. Got the signout from my colleague Dr. Lauro Metz. Patient initially came in because of left-sided weakness with left hemiplegia in the face and upper extremities. On examination patient loses her voice and it comes back inconsistently. Repeat CT of the head today was negative for acute hemorrhage mass effect or midline shift. MRI did not show any lesions. Will follow-up with neurology, recommendations. 08/30/2024 patient currently seen in telemetry. She is feeling short of breath and tachycardia when she moves from laying position to sitting. She feels wheezing. Sister at bedside. CT brain/MRI negative. Dr. Cedillo signed off. Dr. Veloz recommended Lexapro. was leery. Did explain to her to take to prevent anxiety episodes. She agreed. Will do CT neck, chest, abdomen and pelvis to rule out any malignancy. So far all the workup has been coming negative. Albuterol ordered for wheezing. Blood pressure medications adjusted. Review of Systems Review of Systems Narrative Review of Systems: CONSTITUTIONAL: Patient denies any fever, chills. Complaining of fatigue HEENT: Complaining of hoarseness and voice loss from laying down to sitting position CARDIOVASCULAR: Patient denies any chest pain, swelling in the lower extremities. PULMONARY: Patient complaining of shortness of breath, wheezing, palpitations while standing and going to the bathroom or laying to sitting position GASTROINTESTINAL: Patient denies any abdominal pain, constipation, nausea, vomiting, diarrhea. GENITOURINARY: Patient denies any urinary symptoms of burning or frequency or hematuria, denies any form in the urine. SKIN: Denies any rash. MUSCULOSKELETAL: Denies any muscular skeletal problems of joint pains. NEUROLOGICAL: Denies any neurological problems of strokes, seizures or confusion. Denies any memory problems. PSYCHIATRIC: Denies any depression or anxiety. LYMPHATICS : No lymphadenopathy Exam Vital Signs Temp Pulse Resp BP Pulse Ox O2 Del Method 36.2 C 77 20 126/98 H 99 Room Air 08/30/24 08:00 08/30/24 08:00 08/30/24 08:00 08/30/24 08:00 08/30/24 08:00 08/30/24 08:00 Narrative Exam GENERAL APPEARANCE: Patient seems to be comfortable, adequately hydrated and nourished. Sister at bedside HEENT: EOMI, PERRLA NECK: Neck supple, no JVD or bruit CARDIOVASCULAR: Heart regular, no murmurs LUNGS/CHEST: Wheezing noted ABDOMEN: Soft, nontender, nondistended. No masses. Normal bowel sounds. EXTREMITIES: No edema, clubbing or cyanosis. SKIN: Skin exam normal without any rashes MUSCULOSKELETAL: Musculoskeletal exam normal PSYCHIATRIC: Normal mood, affect LYMPHATICS: No lymphadenopathy noted NEUROLOGICAL : No neurological deficits Objective Labs 08/31/24 05:00 08/31/24 05:00 Labs: Laboratory Results - last 24 hr 08/29/24 08/30/24 18:26 05:34 WBC 9.8 RBC 4.67 Hgb 11.3 L Hct 35.5 L MCV 76 L MCH 24.2 L MCHC 31.8 RDW Std Deviation 46.8 H Plt Count 372 D Neut % (Auto) 59 Lymph % (Auto) 24 [place] % (Auto) 8 Eos % (Auto) 7 Baso % (Auto) 1 Neut # (Auto) 5.8 Lymph # (Auto) 2.4 [place] # (Auto) 0.8 Eos # (Auto) 0.7 H Baso # (Auto) 0.1 Immature Gran # (Auto) 0.03 H Absolute Nucleated RBC 0.00 Immature Gran % 0 Nucleated RBC % 0 D-Dimer < 250 Sodium 140 Potassium 3.8 Chloride 107 Carbon Dioxide 24.6 Anion Gap 8 BUN 15 Creatinine 0.6 Estim Creat Clear Calc Not Performed. eGFR > 60 BUN/Creatinine Ratio 25 H Glucose 85 Calculated Osmolality 279 Calcium 8.9 Corrected Calcium 9.0 Total Bilirubin 0.5 AST 25 ALT 22 Alkaline Phosphatase 61 D Total Protein 6.7 Albumin 3.9 D Globulin 2.8 Albumin/Globulin Ratio 1.4 Triglycerides 79 Cholesterol 135 LDL Cholesterol, Calc 79 HDL Cholesterol 40 Cholesterol/HDL Ratio 3.4 L Assessment & Plan Assessment and plan (1) Acute left hemiparesis: Status: Acute (2) Hypertension: Status: Chronic (3) Left-sided headache: Status: Acute Additional Assessment & Plan Additional Plan: 44-year-old female with past medical history of hypertension, asthma, and iron deficiency anemia was admitted to the ICU on 08/28/2024 for stroke rule out status post tenecteplase. #Stroke rule out, s/p TNK #Left-sided weakness Patient was in window of TNK, was administered at 1450. NIHSS of 2 Today patient still having some left-sided weakness with decrease sensation, but improved from yesterday Patient's clinical picture does not fit a clear diagnosis at this time, but imaging showed no signs of stroke in this admission MRI with MRA was negative Head CT post 24 hours was also negative Echo with bubble studies pending Neurochecks every 4 hours Keep systolic blood pressure below 180 Labetalol 10 mg IV as needed Aspirin 81 mg qday Referral to speech and physical therapy seen neuro recommendations- add lexapro #Hypertension #Chest pressure Patient came in with blood pressure of 144/99, he does Patient is well score is 0, very low risk of PE. Given that the patient get TPA Patient was complaining of chest pressure Troponins were negative EKG showed sinus rhythm Repeat EKG showed sinus rhythm Echocardiogram orde with bubble study was done. #Hx of asthma #Shortness of breath, improving Patient saturating well on room air #Hx of iron deficiency anemia Initial hemoglobin is at 12.7 # Patient complaining of shortness of breath, wheezing, palpitations, dysphagia--so far all the workup negative. [place] CAT scan ordered. Cannot put in 1 diagnosis. Question POTS. Hospital Maintenance: Diet: regular DVT ppx: SCDs GI ppx: protonix IV lines: PIV Curiel: curiel catheter Code status: Full code Dispo: home
[2024-08-30] MEDS: PANTOPRAZOLE INJ 40 MG VIAL IVP (09:54)
[2024-08-30] MEDS: ASPIRIN EC 81 MG TABEC PO (09:54)
--- NOTE | 2024-08-30 14:15 | XR_ITS ---
Examination: CT chest with intravenous contrast CT abdomen with intravenous contrast CT pelvis with intravenous contrast 2-D coronal and sagittal reconstructions Time of exam: August 30, 2024 1501 hours Comparison 01/16/2024 INDICATIONS: Severe wheezing hypertension today CTDI: vol (mGy) : 9.94 DLP: (mGycm): 663 Technique: Multiple axial images of the chest, abdomen and pelvis with intravenous contrast, 3.0 mm slice thickness. Images obtained post intravenous injection Isovue 370 60 cc. 2-D sagittal and coronal reconstructions. Low dose protocols were performed. One or more of the following dose reduction techniques were used; automated exposure control, adjustment of the mA and/or KV according to patient size, use of iterative reconstruction technique. Findings: No thoracic aortic aneurysm dilatation or dissection No pulmonary artery filling defects on this non-CTA study No paratracheal tracheobronchial or bronchopulmonary adenopathy No pneumonia, pulmonary edema or pleural disease Fatty infiltration throughout the liver Gallstones Gallbladder wall does not appear thickened No pancreatic splenic or adrenal mass. No renal or ureteral calculi, no hydronephrosis No renal mass lesion No abdominal or pelvic lymphadenopathy Aorta normal size Normal appendix No bowel obstruction Bilateral ovaries contain small ovarian cysts Anteverted uterus with no uterine mass Contracted urinary bladder Fat-containing left femoral hernia The osseous structures are intact IMPRESSION: Negative for pulmonary artery emboli No mediastinal lymphadenopathy. No pneumonia, pulmonary edema or pleural disease Cholelithiasis No abdominal or pelvic lymphadenopathy. Small bilateral ovarian follicular cysts
--- NOTE | 2024-08-30 14:18 | XR_ITS ---
Examination: CT soft tissue neck, with intravenous contrast. 2-D coronal reconstructions. 2-D sagittal reconstructions. Date and time of exam :August 30, 2024 1506 hours INDICATIONS: Severe hypertension with wheezing and shortness of breath several days. CTDI: vol (mGy):11.8 DLP: (mGycm):310 Technique: 1.25 mm axial sections of the neck of the obtained. Coronal and sagittal reconstructions have been obtained. Intravenous contrast administered 50 cc of Isovue 370. Low dose protocols were performed. One or more of the following dose reduction techniques were used; automated exposure control, adjustment of the mA and/or KV according to patient size, use of iterative reconstruction technique. Findings: Prominent chronic maxillary antral ethmoid sinusitis The optic globes exhibit symmetry Prominent hypertrophy and paranasal turbinates No nasopharyngeal or oropharyngeal mass Bilateral carotid triangle lymphadenopathy, the largest lymph node on the left 10 mm on the right 9 mm Symmetrical submandibular glands symmetrical parotid glands The larynx appears normal The thyroid lobes are not enlarged Normal epiglottis Satisfactory alignment cervical vertebral bodies No foreign body in the tracheal airway IMPRESSION: Prominent chronic maxillary antral and ethmoid sinusitis No nasopharyngeal or oropharyngeal mass Nonspecific carotid triangle lymphadenopathy The larynx appears normal The thyroid lobes are not enlarged Normal epiglottis
[2024-08-30] MEDS: NIFEdipine XL 30 MG TABCR PO (16:35)
[2024-08-30] MEDS: LOSARTAN POTASSIUM 25 MG TABLET 50 MG PO (16:35)
[2024-08-30] MEDS: ATORVASTATIN CALCIUM 20 MG TABLET 80 MG PO (20:02)
[2024-08-30] MEDS: ACETAMINOPHEN 325 MG TABLET 650 MG PO (23:09)
[2024-08-31] VITALS (12 sets, daily range): BP systolic 94–131; BP diastolic 64–105; PULSE 63–140; RESP 12–97; TEMP 35.9–36.8; O2SAT 98–100
--- NOTE | 2024-08-31 00:03 | PD.VPROG1 ---
Telemedicine visit statement This visit was conducted with the use of interactive audio and video telecommunications system that permits real time communication between the patient and the provider. Patient's verbal consent for virtual visit was obtained on 08/31/24 at 0003. Documentation for date of: 08/31/24 Subjective Subjective Interval history: Patient is in telemetry. Noted some improvement in the left-sided strength. No new symptoms reported Virtual exam Vital Signs Temp Pulse Resp BP Pulse Ox O2 Del Method 97.3 F 76 22 H 125/75 97 Room Air 08/30/24 23:59 08/30/24 23:59 08/30/24 23:59 08/30/24 23:59 08/30/24 23:59 08/30/24 15:48 Objective Labs 08/30/24 05:34 08/30/24 05:34 Labs: Laboratory Results - last 24 hr 08/30/24 05:34 WBC 9.8 RBC 4.67 Hgb 11.3 L Hct 35.5 L MCV 76 L MCH 24.2 L MCHC 31.8 RDW Std Deviation 46.8 H Plt Count 372 D Neut % (Auto) 59 Lymph % (Auto) 24 [place] % (Auto) 8 Eos % (Auto) 7 Baso % (Auto) 1 Neut # (Auto) 5.8 Lymph # (Auto) 2.4 [place] # (Auto) 0.8 Eos # (Auto) 0.7 H Baso # (Auto) 0.1 Immature Gran # (Auto) 0.03 H Absolute Nucleated RBC 0.00 Immature Gran % 0 Nucleated RBC % 0 Sodium 140 Potassium 3.8 Chloride 107 Carbon Dioxide 24.6 Anion Gap 8 BUN 15 Creatinine 0.6 Estim Creat Clear Calc Not Performed. eGFR > 60 BUN/Creatinine Ratio 25 H Glucose 85 Calculated Osmolality 279 Calcium 8.9 Corrected Calcium 9.0 Total Bilirubin 0.5 AST 25 ALT 22 Alkaline Phosphatase 61 D Total Protein 6.7 Albumin 3.9 D Globulin 2.8 Albumin/Globulin Ratio 1.4 Triglycerides 79 Cholesterol 135 LDL Cholesterol, Calc 79 HDL Cholesterol 40 Cholesterol/HDL Ratio 3.4 L Assessment & Plan Problem List (1) Acute left hemiparesis: Status: Acute Assessment and plan: Improving Reassurance given regarding the negative MRI brain for acute stroke status post tPA Continue with Lexapro (2) Tachycardia: Status: Acute Assessment and plan: Continue with labetalol as needed (3) Hypertension: Status: Chronic Assessment and plan: Consider alternative antihypertensives upon discharge
[2024-08-31 05:44] LABS: Basophils # (Auto) 0.1 Thou/mm3 (0.0-0.2); Basophils % (Auto) 1 % (0-2.5); Eosinophils # (Auto) 0.8 Thou/mm3 (0.0-0.5); Eosinophils % (Auto) 8 % (0-10); Hemoglobin 12.1 g/dL (12.0-16.0); Immature Granulocytes % (Auto) 0 % (0-0); Immature Granulocytes Auto 0.03 Thou/mm3 (0.00-0.00); Lymphocytes # (Auto) 2.5 Thou/mm3 (1.0-4.8); Lymphocytes % (Auto) 25 % (10-50); Mean Corpuscular HGB Conc 31.8 g/dl (31.0-37.0); Mean Corpuscular Hemoglobin 24.2 pg (25.0-35.0); Mean Corpuscular Volume 76 fL (80-100); Monocytes # (Auto) 0.7 Thou/mm3 (0.0-0.8); Monocytes % (Auto) 7 % (0-12); Neutrophils # (Auto) 5.8 Thou/mm3 (1.8-7.7); Neutrophils % (Auto) 58 % (37-80); Nucleated Red Blood Cell % 0 /100 WBC (0); Platelet Count 369 Thou/mm3 (140-440); RDW Standard Deviation 46.5 fL (36.4-46.3); White Blood Count 9.9 Thou/mm3 (3.6-11.0)
[2024-08-31 06:11] LABS: Alanine Aminotransferase 21 U/L (10-49); Albumin, Serum 4.2 gm/dL (3.5-5.0); Albumin/Globulin Ratio 1.4 (1.2-2.2); Alkaline Phosphatase 64 U/L (46-116); Anion Gap 8 (7-16); Aspartate Amino Transferase 21 U/L (0-34); BUN/Creatinine Ratio 20 Ratio (12-20); Bilirubin,Total 0.5 mg/dL (0.3-1.2); Blood Urea Nitrogen 12 mg/dL (9-23); Calcium 9.1 mg/dL (8.3-10.6); Calcium (Corrected) 9.1 mg/dL (8.5-10.1); Carbon Dioxide 25.9 mMol/L (20.0-31.0); Chloride 101 mMol/L (98-107); Creatinine (Component) 0.6 mg/dL (0.6-1.3); Glucose 96 mg/dL (74-106); Osmolality,Calculated 269 (275-295); Potassium 3.7 mMol/L (3.4-5.1); Sodium 135 mMol/L (136-145); Total Protein 7.2 gm/dL (5.7-8.2); eGFR > 60 See Note
[2024-08-31] MEDS: PANTOPRAZOLE INJ 40 MG VIAL IVP (08:39)
[2024-08-31] MEDS: ASPIRIN EC 81 MG TABEC PO (08:40)
[2024-08-31] MEDS: ESCITALOPRAM OXALATE 10 MG TABLET PO (08:41)
[2024-08-31] MEDS: NIFEdipine XL 30 MG TABCR PO (08:41)
[2024-08-31] MEDS: LOSARTAN POTASSIUM 25 MG TABLET 50 MG PO (08:41)
[2024-08-31] MEDS: ALBUTEROL INH 8 GM 2 PUFF INH (09:26)
--- NOTE | 2024-08-31 10:56 | PC.SS ---
SS met with patient who is alert/oriented. She was able to verify demographics. Patient resides at home with spouse and family. Patient is independent with ADL's. Patient was admitted for stroke r/o. Patient is employed and drives. She states she follows with Dr. English for PCP. Patient also has been to [facility]. Pharmacy: [facility]. Patient worked with PT and they recommended further o/p PT services. Alt medical decision maker: Spouse, Storm FarleyFrank,
--- NOTE | 2024-08-31 11:16 | ESPR_ITS ---
Documentation for date of: 08/31/24 Subjective Subjective Interval history: Ms. Smith is a 44-year-old female with past medical history of hypertension, asthma, and iron deficiency anemia was admitted to the ICU on 08/28/2024 after coming to the ED with complaints of left-sided weakness. Patient stated that she was admitted to our hospital recently on Saturday due to feelings of weakness, dizziness, chest pressure, and shortness of breath, but that she was discharged yesterday and that she could return back to her daily activities. 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 She also mentioned that her left side of the body felt numb and weaker. She mentioned she does not remember quite what happened throughout the course of this neurological deficits before she came to the hospital. Patient states that she was well around noon time and the symptoms started around after lunchtime. Patient arrived to the ER in the window for TNK, teleneurology was consulted and she received TNK at 1450. She mentioned that she had a TIA in the past around 2 years ago, but is not on any medication for this at this time. She mentions that her only medication is the propranolol. She also stated that her father had multiple strokes in the past and he also had a brain aneurysm, which he last year from. She stated that her father's stroke started at an early age before 50s. She does not have any history of cardiac arrhythmias or PFO and she had not visited any physician prior for similar symptoms of shortness of breath, chest pressure, or feelings of weakness. 08/29/2024: Patient was seen and examined at bedside today. Got the signout from my colleague Dr. Lauro Metz. Patient initially came in because of left-sided weakness with left hemiplegia in the face and upper extremities. On examination patient loses her voice and it comes back inconsistently. Repeat CT of the head today was negative for acute hemorrhage mass effect or midline shift. MRI did not show any lesions. Will follow-up with neurology, recommendations. 08/31/24: Patient was seen and examined in telemetry today. There were no major overnight events and patient was resting comfortably on the bed. Patient continues to speak with a very soft voice and states that she has been having trouble swallowing. Patient's thyroid rating around 100% when laying down with adequate air movement and no wheezing on bilateral lung drew. She states that when she sits up she has more trouble breathing and swallowing and when proceeded to sit up patient started having inspiratory stridor but continues to have adequate air movement throughout bilateral lung drew and is saturating 100% on room air. Soft tissue CT scan of the neck is grossly unremarkable aside from nonspecific left carotid triangle lymphadenopathy. Will follow-up with neurology for further recommendations. Will reach out to GI and ENT as well. No masses are palpable on physical exam of the neck. Exam Vital Signs Temp Pulse Resp BP Pulse Ox O2 Del Method 96.6 F L 87 20 115/87 H 98 Room Air 08/31/24 07:59 08/31/24 09:27 08/31/24 09:27 08/31/24 08:41 08/31/24 09:27 08/31/24 07:59 Narrative Exam Constitutional: Well nourished and in no acute distress Head: Normocephalic/Atraumatic Eyes: PERRL , no conjunctival injection , symmetrical lids. ENMT: Moist Mucous Membranes, No trauma or injury. Neck: Supple to palpation, No JVD CVS: RRR, S1 and S2 present, no murmurs, rubs or gallops . RESP: CTAB, no SOB, no rales, rhonchi or wheezing. No respiratory Distress. Inspiratory stridor observed occasionally GI: Normal BS, Nontender/Nondistended. MSK: Full range of motion, No trauma or deformities or masses. Skin: Warm to touch, Dry. No rashes or lesions. No hematomas Neuro: habitat management coordinator II-XII grossly intact. Muscle strength is 6/6 on bilateral upper and lower extremities. Psych: (AAO) x3 . Appropriate mood and affect. Objective Labs 08/31/24 05:00 08/31/24 05:00 Labs: Laboratory Results - last 24 hr 08/31/24 05:00 WBC 9.9 RBC 5.00 Hgb 12.1 Hct 38.0 MCV 76 L MCH 24.2 L MCHC 31.8 RDW Std Deviation 46.5 H Plt Count 369 Neut % (Auto) 58 Lymph % (Auto) 25 [place] % (Auto) 7 Eos % (Auto) 8 Baso % (Auto) 1 Neut # (Auto) 5.8 Lymph # (Auto) 2.5 [place] # (Auto) 0.7 Eos # (Auto) 0.8 H Baso # (Auto) 0.1 Immature Gran # (Auto) 0.03 H Absolute Nucleated RBC 0.00 Immature Gran % 0 Nucleated RBC % 0 Sodium 135 L Potassium 3.7 Chloride 101 Carbon Dioxide 25.9 Anion Gap 8 BUN 12 Creatinine 0.6 Estim Creat Clear Calc Not Performed. eGFR > 60 BUN/Creatinine Ratio 20 Glucose 96 Calculated Osmolality 269 L Calcium 9.1 Corrected Calcium 9.1 Total Bilirubin 0.5 AST 21 ALT 21 Alkaline Phosphatase 64 Total Protein 7.2 Albumin 4.2 Globulin 3.0 Albumin/Globulin Ratio 1.4 Quality Measures Quality Measures stroke Suspected type of Stroke: Unknown at this time Last known well (date): 08/28/24 Last known well (time): 12:00 Tenecteplase given: within 60 min of arrival Rehab services: PT evaluation ordered VTE Prophylaxis: pharmaceutical Antithrombotic by day 2:: not indicated (describe) Statin ordered: <75 y/o high intensity dose Anticoagulation ordered for A-fib or flutter (current or hx): not indicated Assessment & Plan Assessment Current Active Medications: Generic Name Dose Route Start Last Admin Trade Name Freq PRN Reason Stop Dose Admin Acetaminophen 650 mg 08/28/24 16:12 08/30/24 23:09 Acetaminophen 325 Mg Tablet PO 09/27/24 16:11 650 mg Q6H PRN Administration pain and Fever >100.4 Albuterol 2 puff 08/30/24 16:17 08/31/24 09:26 Albuterol Inh 8 Gm INH 09/29/24 16:16 2 puff Q4HR PRN Administration SHORTNESS OF BREATH OR WHEEZE Aspirin 81 mg 08/30/24 09:00 08/31/24 08:40 Aspirin Ec 81 Mg Tabec PO 09/29/24 08:59 81 mg QDAY ANDREWS Administration Atorvastatin Calcium 80 mg 08/28/24 21:00 08/30/24 20:02 Atorvastatin Calcium 20 Mg Tablet PO 09/27/24 20:59 80 mg HS ANDREWS Administration Escitalopram Oxalate 10 mg 08/30/24 09:15 08/31/24 08:41 Escitalopram Oxalate 10 Mg Tablet PO 09/29/24 09:14 10 mg QDAY ANDREWS Administration Nicardipine/Sodium Chloride 20 mg in 200 mls @ 50 mls/hr 08/28/24 14:25 Cardene Ivpb IV 09/27/24 14:24 .Q4H PRN Per Nicardipine Stroke Protocol Protocol 5 MG/HR Labetalol HCl 10 mg 08/28/24 14:25 Labetalol Inj 5 Mg/Ml Vial 20 Ml IVP [id number] PRN SBP > 180 mmHg or DBP > 105 Losartan Potassium 50 mg 08/30/24 16:30 08/31/24 08:41 Losartan Potassium 25 Mg Tablet PO 09/29/24 16:29 50 mg QDAY ANDREWS Administration Nifedipine 30 mg 08/30/24 16:30 08/31/24 08:41 Nifedipine Xl 30 Mg Tabcr PO 09/29/24 16:29 30 mg QDAY ANDREWS Administration Ondansetron HCl 4 mg 08/28/24 14:02 Ondansetron Inj 2 Mg/Ml Inj 2 Ml IV 09/27/24 14:01 Q4HR PRN NAUSEA OR VOMITING Pantoprazole Sodium 40 mg 08/28/24 16:20 08/31/24 08:39 Pantoprazole Inj 40 Mg Vial IVP 09/27/24 16:19 40 mg QDAY ANDREWS Administration Plan 44-year-old female with past medical history of hypertension, asthma, and iron deficiency anemia was admitted to the ICU on 08/28/2024 for stroke rule out status post tenecteplase. #Stroke ruled out, s/p TNK #Left-sided weakness?improved Patient was in window of TNK, was administered at 1450. NIHSS of 2 Today patient still having some left-sided weakness with decrease sensation, but improved from yesterday Patient's clinical picture does not fit a clear diagnosis at this time, but imaging showed no signs of stroke in this admission MRI with MRA was negative Head CT post 24 hours was also negative Echo with bubble studies resulted with an EF of 55 to 60% with no PFO or atrial septal defects. Soft tissue CT of the neck shows nonspecific left carotid triangle lymphadenopathy. Keep systolic blood pressure below 180 Labetalol 10 mg IV as needed Plan: ? Will continue to work with physical therapy ? Appreciate neuro recommendations ? Will continue with Lexapro 10 mg p.o. daily ? Will continue aspirin 81 mg daily ? Will continue atorvastatin 80 mg p.o. at bedtime #Mild hyponatremia Patient sodium was 135 this morning Likely secondary to her decreased p.o. intake as she states that she is unable to swallow Plan: ? Will continue to monitor ? Will encourage p.o. intake ? Will follow-up with speech eval #Hypertension #Chest pressure Patient came in with blood pressure of 144/99, he does Patient is well score is 0, very low risk of PE. Given that the patient get TPA Patient was complaining of chest pressure Troponins were negative EKG showed sinus rhythm Repeat EKG showed sinus rhythm Echocardiogram as stated above Plan: ? Will continue to monitor #Hx of asthma #Shortness of breath Patient saturating well on room air There is inspiratory stridor that is done consistent when patient sits up but otherwise there is adequate air movement throughout bilateral lung drew Plan: ? Will continue DuoNebs as needed #Hx of iron deficiency anemia Initial hemoglobin is at 12.7 Hospital Maintenance: Diet: regular DVT ppx: SCDs GI ppx: protonix IV lines: PIV Curiel: curiel catheter Code status: Full code Dispo: Downgraded to medical floors I discussed patient's care with attending physician, Dr Tameka Shepard PGY3 Attending Provider Attestation/Addendum Patient seen and examined with resident physician Dr. Shepard. Note reviewed, agree with findings and recommendations. at bedside in the emergency department. Patient in ICU status. Status post tPA yesterday. While we were talking her voice became slow and not audible. Had a long conversation with the patient regarding the triggers for depression/anxiety although she denied. 2 CTs negative. MRI negative. Not quite sure exact etiology. Spoke to Dr. William who will come and see the patient. Spoke to ICU team. Clinically she seems to have mild weakness/ tremors in the left side. 08/31/2024 Patient currently seen in telemetry. at bedside. So far all the workup has been negative. CT brain, CT neck, chest, abdomen/pelvis are all negative. Labs negative. Patient still complaining of palpitations and shortness of breath upon not going to the bathroom or laying down to sitting position. Patient felt like she is choking when eating. Requested Dr. Grimaldo consult-had seen patient did not think she had any extrathoracic or intrathoracic obstruction. Throat exam was normal. Spoke to Dr. Brantley-no need for endoscopy as she had a EGD month and a half ago. At this point working diagnosis is POTS. Dr. Abida bender was consulted for palpitations. Dr Veloz was consulted-recommended Lexapro as there is no neurological weakness, MRI was negative. ICU/Dr. Cedillo did not think any pulmonary etiology. Spoke to the patient and at length regarding all the negative workup and if cardiology workup is negative-she may need to go to a tertiary care center as an outpatient. In the interim give her breathing treatments and albuterol for wheezing. She was able to talk to me and then loses her voice. stated she is not on any anxiety or depression state. Time spent today more than 45 minutes regarding plan of care and disease management.
--- NOTE | 2024-08-31 15:26 | PC.NURSE ---
Pts HR went up to the 140s when ambulating on two separate occasions pt states she feels like her heart is racing. Dr. English notified amd consulted Dr. Abida Bess.
[2024-08-31] MEDS: OXYMETAZOLINE NAS SPRY 0.05% 15 ML BTL NASAL (16:16)
[2024-08-31] MEDS: LIDOCAINE JELLY 2% (Urojet) 10 ML TUBE TOP (16:30)
--- NOTE | 2024-08-31 16:58 | PD.SURCONS ---
HPI Consult details Consult date: 08/31/24 Reason for consult: other (Shortness of breath with sitting up or standing along with dysphonia and dysphagia) History of present illness: I was unclear exactly from the patient when the symptoms started. I had the impression that this has been a recurring problem from talking to her physician. She was admitted yesterday with associated left arm weakness. She has been worked up from a cardiac standpoint which apparently has been normal up to this point. CT report and images of the neck were visualized and other than some tracheal deviation to the right was normal as well. She did have some chronic sinus disease visualized. She has a history of chronic sinusitis. Review of Systems Constitutional Constitutional: Denies chills and Denies fever(s) ENT Comments: Hoarseness and dysphagia Cardiovascular Cardiovascular: Denies chest pain Respiratory Respiratory: Denies cough Gastrointestinal Gastrointestinal: Reports abdominal pain, Denies hematochezia, Denies loose stools, Denies melena, Reports nausea and Denies vomiting Genitourinary Genitourinary: Denies abnormal vaginal bleeding, Denies difficulty voiding and Denies vaginal discharge Hematologic/Lymphatic Hematologic/Lymphatic: Denies easy bleeding and Denies easy bruising Past Medical History Past Medical History NEUROLOGIC: Positive Neurological Disorders and Transient Ischemic Attacks (TIA) CARDIAC: Positive Cardiac Disorders and Hypertension RESPIRATORY: Positive Asthma GASTROINTESTINAL: Positive Gastrointestinal Disorders and Gastrointestinal Bleed (BLOOD IN STOOL) REPRODUCTIVE: Positive Previous Pregnancies HEMATOLOGIC: Positive Anemia (SEVERE. HAD 5 IRON INFUSIONS) PSYCHO/SOCIAL: Positive Depression and Anxiety OTHER HISTORY: Positive Blood Transfusions Family History FAMILY HISTORY: Negative Family Psychiatric Problems, Family Respiratory Disorders, Family Cardiac Disorders, Family Gastrointestinal Problems, Family Cancer, Family Surgery or Family Anesthesia Reaction Surgical History SURGICAL: Positive Section OTHER SURGICAL HX: Endoscopic sinus surgery several years ago Social History SMOKING STATUS: Never smoker SECOND HAND EXPOSURE: No SUBSTANCE USE: does not use Meds Home Medications and Allergies Home Medications ?Medication ?Instructions ?Recorded ?Confirmed ?Type propranolol 10 mg tablet 10 mg PO 2XD 01/16/24 08/27/24 History Allergies Allergy/AdvReac Type Severity Reaction Status Date / Time No Known Allergies Allergy Verified 08/26/24 17:20 Exam Vital Signs Temp Pulse Resp BP Pulse Ox O2 Del Method 96.7 F L 63 16 120/88 H 99 Room Air 08/31/24 16:00 08/31/24 16:00 08/31/24 16:00 08/31/24 16:00 08/31/24 16:00 08/31/24 16:00 Constitutional Comments: Patient is alert and oriented and not in any acute distress in the semirecumbent position. Routine HEENT Exam Comments: Head is normocephalic without any suspicious lesions. External nose is normal in appearance. The nasal septum has a grade 2 deviation to the right side. There is no discharge. Oral exam showed increased clear postnasal drainage. Teeth were in good repair. Routine Neck Exam Comments: Neck exam is without mass lymphadenopathy or tenderness. There was no palpable thyroid enlargement. Results Results: Laboratory Laboratory results: results reviewed Results: Imaging Additional studies: CT of the neck reviewed Assessment & Plan Additional Assessment Additional comments: Shortness of breath of undetermined origin. Hoarseness Chronic sinusitis Dysphagia Plan Bedside flexible laryngoscopy was recommended and the patient wished to proceed. This showed some mild polypoid mucosal disease in the left nasal passageway. The epiglottis was normal in appearance. There was mild diffuse erythema of the surrounding laryngeal structures but the vocal cords themselves were normal in appearance with normal mobility. There was no visual bolus subglottic stenosis either. No new recommendations at this time other than GI evaluation. A portion of this patient's symptoms may be stress related.
--- NOTE | 2024-08-31 17:08 | PD.SURPROC ---
Procedures - Surgery Procedure Comment Procedure Comment: Informed consent was obtained at bedside flexible laryngoscopy was performed. Topical Afrin as well as lidocaine gel were used for anesthesia. No complications were encountered. Procedure report: Patient was anesthetized as noted above. The flexible laryngoscope was initially passed into the right nares but the septum had a grade 2 deviation to the right side so it was moved back over to the left side. The scope was passed through back into the nasopharynx. In the nose it was noted there was small polyps present that were not obstructive. The scope was passed down into the oropharynx base of tongue epiglottis are normal in appearance. There is mild edema of the false vocal cords and surrounding laryngeal structures but the vocal cords themselves were normal in appearance with normal mobility. There were no lesions noted. The subglottic area was normal in appearance as well. The scope was withdrawn and patient tolerated the procedure well.
--- NOTE | 2024-08-31 19:05 | ESCONSULT_ITS ---
HPI Data of Consult Requesting Physician: Joana Puentes MD Admitting Provider: Joana Puentes MD Attending Provider: Joana Puentes MD Primary Care Provider: Luis Carlos English MD Consult Narrative History of present illness: Farzana Smith is a 44-year-old female with past medical history of hypertension, asthma, anxiety, iron deficiency anemia, and self-reported history of TIAs (~2022) who presented on 08/28 with left-sided weakness. She states that while at work, colleagues were telling her that she had lost her voice, became pale and clammy, and developed left-sided tingling and weakness for which EMS was called and brought to the ED. Upon arrival to the ED, stroke alert was called and teleneurology was consulted and patient was given TNK and then admitted to the ICU. In-house neurology also consulted and MRI brain negative for any acute stroke status post TNK. Upon further history, patient presented on 08/26 for palpitations and chest discomfort with associated nausea, diaphoresis, and weakness. At that time BP went up to as high as 195/128 but BNP and troponin were negative, EKG showed NSR without any ST changes or T wave abnormalities. She was then discharged on 08/27 with recommendations to follow-up with cardiology for Holter monitoring but represented on 08/28. She states that she has been experiencing palpitations with associated chest discomfort for proximately 1 month now but have become more frequent within the last 2 weeks. States that it happens consistently from sitting to standing and with minimal activity. She also endorses associated dyspnea on exertion and a 15 pound weight loss attributed to decreased appetite within the same time period. Additionally, she has developed dysphagia and dysphonia that are associated with position for the last couple days, stating that it worsens when sitting more upright and occurs with both solids and liquids. Prior to one month ago, patient only experienced fatigue but no palpitations, chest discomfort, dysphonia, or dysphagia. She does state that she had panic attacks after her daughter was born as well as after the passing of her father in April 2023 but has not experienced anxiety as of late. During this admission, underwent bedside laryngoscope he that showed grade 2 right-sided septal deviation, small nonobstructive polyps in naris, mild edema/erythema of false vocal cords and surrounding laryngal structures but vocal cords themselves normal in appearance and mobility without any lesions noted - no further recommendations from ENT perspective. Also underwent EGD on 07/15 that showed esophagitis, gastritis but otherwise unremarkable. Cardiology consulted for sinus tachycardia. 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, , 2 daughters PSHx: status post left-sided salpingo-oophorectomy due to tubo-ovarian abscesses in January 2024, cc:: cc: Joana Puentes MD Review of Systems Review of Systems Systems Reviewed: All systems reviewed, normal except as documented Exam Vital Signs Temp Pulse Resp BP Pulse Ox O2 Del Method 96.7 F L 63 16 120/88 H 99 Room Air 08/31/24 16:00 08/31/24 16:00 08/31/24 16:00 08/31/24 16:00 08/31/24 16:08/31/24 16:00 Narrative Exam General: AOx3, no acute distress, able to speak full sentences HEENT: NC/AT, mucous membranes moist, bilateral sclera anicteric Cardiovascular: regular rate and rhythm, S1/S2 present, no murmurs appreciated Pulmonary: clear to auscultation bilaterally, no rales/rhonchi/wheezes Abdominal: soft, non-tender, non-distended, no rebound/guarding, normal bowel sounds present Musculoskeletal: normal ROM, no peripheral edema Skin: warm and dry, intact, no rashes Neuro: CN II-XII intact, no focal deficits Results Labs 09/01/24 04:40 09/01/24 04:40 Labs: Short CBC 08/31/24 Range/Units 05:00 WBC 9.9 (3.6-11.0) Thou/mm3 Hgb 12.1 (12.0-16.0) g/dL Hct 38.0 (36.0-46.0) % Plt Count 369 (140-440) Thou/mm3 BMP 08/31/24 05:00 Sodium 135 L Potassium 3.7 Chloride 101 Carbon Dioxide 25.9 BUN 12 Creatinine 0.6 Glucose 96 Calcium 9.1 Liver Function 08/31/24 Range/Units 05:00 Total Bilirubin 0.5 (0.3-1.2) mg/dL AST 21 (0-34) U/L ALT 21 (10-49) U/L Alkaline Phosphatase 64 (46-116) U/L Albumin 4.2 (3.5-5.0) gm/dL Quality Measures Quality Measures stroke Suspected type of Stroke: Unknown at this time Last known well (date): 08/28/24 Last known well (time): 12:00 Tenecteplase given: within 60 min of arrival Rehab services: PT evaluation ordered and Speech Language Pathology eval ordered VTE Prophylaxis: mechanical Antithrombotic by day 2:: contraindicated (describe) (Given TNK) Statin ordered: >75 y/o moderate or high intensity dose Anticoagulation ordered for A-fib or flutter (current or hx): not indicated Medications Home Medications and Allergies Allergies Allergy/AdvReac Type Severity Reaction Status Date / Time No Known Allergies Allergy Verified 08/26/24 17:20 Visit Medications Acetaminophen (Acetaminophen 325 Mg Tablet) 650 mg PO Q6H PRN PRN Reason: pain and Fever >100.4 Stop: 09/27/24 16:11 Last Admin: 08/30/24 23:09 Dose: 650 mg Albuterol (Albuterol Inh 8 Gm) 2 puff INH Q4HR PRN PRN Reason: SHORTNESS OF BREATH OR WHEEZE Stop: 09/29/24 16:16 Last Admin: 08/31/24 09:26 Dose: 2 puff Aspirin (Aspirin Ec 81 Mg Tabec) 81 mg PO QDAY [facility] Stop: 09/29/24 08:59 Last Admin: 08/31/24 08:40 Dose: 81 mg Atorvastatin Calcium (Atorvastatin Calcium 20 Mg Tablet) 80 mg PO [facility] Stop: 09/27/24 20:59 Last Admin: 08/30/24 20:02 Dose: 80 mg Escitalopram Oxalate (Escitalopram Oxalate 10 Mg Tablet) 10 mg PO QDAY [facility] Stop: 09/29/24 09:14 Last Admin: 08/31/24 08:41 Dose: 10 mg Labetalol HCl (Labetalol Inj 5 Mg/Ml Vial 20 Ml) 10 mg IVP [id number] PRN PRN Reason: SBP > 180 mmHg or DBP > 105 Losartan Potassium (Losartan Potassium 25 Mg Tablet) 50 mg PO QDAY [facility] Stop: 09/29/24 16:29 Last Admin: 08/31/24 08:41 Dose: 50 mg Nifedipine (Nifedipine Xl 30 Mg Tabcr) 30 mg PO QDAY [facility] Stop: 09/29/24 16:29 Last Admin: 08/31/24 08:41 Dose: 30 mg Ondansetron HCl (Ondansetron Inj 2 Mg/Ml Inj 2 Ml) 4 mg IV Q4HR PRN PRN Reason: NAUSEA OR VOMITING Stop: 09/27/24 14:01 Pantoprazole Sodium (Pantoprazole Inj 40 Mg Vial) 40 mg IVP QDAY [facility] Stop: 09/27/24 16:19 Last Admin: 08/31/24 08:39 Dose: 40 mg Discontinued Medications Nicardipine/Sodium Chloride (Cardene Ivpb) 20 mg in 200 mls @ 50 mls/hr IV .Q4H PRN; Protocol PRN Reason: Per Nicardipine Stroke Protocol Stop: 09/27/24 14:24 Sodium Chloride (Ns) 1,000 mls @ 80 mls/hr IV .[id number] [facility] Stop: 08/29/24 05:29 Last Infusion: 08/29/24 06:04 Dose: Infused Lidocaine HCl (Lidocaine Jelly 2% (Urojet) 10 Ml Tube) 0 ml TOP X1 ONE Stop: 08/31/24 14:21 Last Admin: 08/31/24 16:30 Dose: 3 ml Oxymetazoline HCl (Oxymetazoline [place] 0.05% 15 Ml Btl) 0 spray NASAL X1 ONE Stop: 08/31/24 16:10 Last Admin: 08/31/24 16:16 Dose: 2 sprays Tenecteplase (Tenecteplase Inj 50 Mg Vial) 23 mg IV X1 ONE Stop: 08/28/24 14:26 Last Admin: 08/28/24 14:50 Dose: 23 mg Assessment & Plan Plan Farzana Smith is a 44-year-old female with past medical history of hypertension, asthma, anxiety, iron deficiency anemia, and self-reported history of TIAs (~2022) who was admitted after being given TNK for stroke-like symptoms and cardiology consulted for sinus tachycardia. #Sinus tachycardia, likely physiologic versus inappropriate #Palpitations #Chest discomfort Presented on 08/26 for palpitations and chest discomfort with associated nausea, diaphoresis, and weakness. At that time BP went up to as high as 195/128 but BNP and troponin negative, EKG showed NSR without any ST changes or T wave abnormalities. For past 1 month she has been experiencing palpitations with associated chest discomfort but have become more frequent within the last 2 weeks. States that it happens consistently from sitting to standing and with minimal activity with associated dyspnea on exertion and a 15 pound weight loss attributed to decreased appetite within the same time period. Suspect that patient is intravascularly depleted in setting of decreased p.o. intake vs other causes as BUN/creatinine ratio of 20 and patient is afebrile, not in pain, and electrolytes within normal limits. Upon evaluation, patent ambulated to restroom and HR increased from high 90s to 130s-140s. Orthostatic vitals 08/31 showed lying BP 129/88, sitting BP at 131/103, and standing BP of 125/105 with heart rates of 96, 106, and 140 respectively. ? Started maintenance NS at 125 cc/h ? Recommend monitoring with daily orthostatics while being resuscitated with IVF #History of hypertension Patient on propranolol 10 mg PO BID. States that blood pressure gets high at times, with previous admission showing BP as high as 190s/120s but home recordings are ~120-130/80. Blood pressure here in-house has been within range with current regimen. ? Continue losartan 50 mg p.o. daily ? Continue nifedipine 30 mg p.o. daily ? Labetalol 10 mg IV as needed #Stroke ruled-out, s/p TNK #Left-sided weakness, resolved #Mild hyponatremia #History of asthma #Shortness of breath #History of iron deficiency anemia ? Management of above conditions per primary team and other consultants ----- Plan discussed with attending physician Dr. Olinda Sauceda MD PGY-1 Internal Medicine Attending Provider Attestation/Addendum I have personally seen and examined the patient separately on the above date of service and discussed the plan of care with the resident. I reviewed the resident Dr. Pineda Sauceda consultation progress note and agree with the resident findings and plan in the note above and have also edited the documentation to reflect my findings and plan. 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 Admission teleneurology was consulted in the emergency department and patient was thought to have an acute stroke and was given TNK as t patient apparently did not have any contraindications. Patient was then admitted to the hospital for further stroke workup with a brain MRI, transthoracic echo with a bubble study, A1c, LDL and TSH. MRI of the brain did not show any acute infarct patient also presented with intermittent loss of voice which ranged from whispering to normal voice strength. Also patient is was found to be significantly tachycardic up to 150 bpm standing up and cardiology was consulted for further evaluation of the same and wanted to rule out any significant cardiac etiology. Uvaldo Prakash M.D. Interventional Cardiology
--- NOTE | 2024-08-31 19:31 | PD.IMCONS ---
HPI Data of Consult Requesting Physician: Joana Puentes MD Primary Care Provider: Luis Carlos English MD Consult Narrative Reason for consult: Dysphagia, neurological symptoms of motor weakness left-sided History of present illness: 44 years old female evaluated the request of her primary care physician She presented to the emergency room from work via ambulance on 08/28/2024 while she was at work she lost her voice she has to lay flat on the floor ambulance was called and she had left-sided motor weakness and also facial droop as documented by the ambulance personnel She was in still the window for tPA But the workup was absolutely negative including head and neck CTA which shows some lymphadenopathy in both supraclavicular triangles but not significant MRI scan of the brain with MRA was negative CT scan of the soft tissue of neck was negative CT scan of the chest abdomen pelvis with contrast showed cholelithiasis otherwise negative The lymphadenopathy in the carotid triangle was not very significant Patient on 07/15/2024 underwent upper endoscopy which showed gastritis and colonoscopy showed internal hemorrhoids which were banded no other lesions seen cc:: cc: Joana Puentes MD Review of Systems Review of Systems Systems Reviewed: All systems reviewed, normal except as documented Past Medical History Surgical History OTHER SURGICAL HX: As in the history of present illness Meds Home Medications and Allergies Home Medications ?Medication ?Instructions ?Recorded ?Confirmed ?Type propranolol 10 mg tablet 10 mg PO 2XD 01/16/24 08/27/24 History Allergies Allergy/AdvReac Type Severity Reaction Status Date / Time No Known Allergies Allergy Verified 08/26/24 17:20 Exam Vital Signs Temp Pulse Resp BP Pulse Ox O2 Del Method 96.7 F L 63 16 120/88 H 99 Room Air 08/31/24 16:00 08/31/24 16:00 08/31/24 16:00 08/31/24 16:00 08/31/24 16:00 08/31/24 16:00 Constitutional Comments: Alert oriented Routine Respiratory Exam Comments: Normal to auscultation Routine Abdominal Exam Comments: Soft nontender Results Labs 08/31/24 05:00 08/31/24 05:00 Labs: Short CBC 08/31/24 Range/Units 05:00 WBC 9.9 (3.6-11.0) Thou/mm3 Hgb 12.1 (12.0-16.0) g/dL Hct 38.0 (36.0-46.0) % Plt Count 369 (140-440) Thou/mm3 BMP 08/31/24 05:00 Sodium 135 L Potassium 3.7 Chloride 101 Carbon Dioxide 25.9 BUN 12 Creatinine 0.6 Glucose 96 Calcium 9.1 Liver Function 08/31/24 Range/Units 05:00 Total Bilirubin 0.5 (0.3-1.2) mg/dL AST 21 (0-34) U/L ALT 21 (10-49) U/L Alkaline Phosphatase 64 (46-116) U/L Albumin 4.2 (3.5-5.0) gm/dL Assessment and Plan Additional Assessment & Plan Additional Plan: # Dysphagia accompanied by shortness of breath Appears to be motor dysfunction rather than structural issue Her symptoms happens more with the change of posture # Most of her symptoms are neurological patient most likely has POTS syndrome and cardiology is on board I will also recommend neurological consultation No need for any invasive GI workup at this time We will follow the patient
[2024-08-31] MEDS: ATORVASTATIN CALCIUM 20 MG TABLET 80 MG PO (20:01)
[2024-08-31] MEDS: ACETAMINOPHEN 325 MG TABLET 650 MG PO (20:01)
--- NOTE | 2024-08-31 22:49 | PD.NEUROPROG ---
Documentation for date of: 08/31/24 Subjective Subjective Interval history: Patient initially came in because of left-sided weakness with left hemiplegia in the face and upper extremities. On examination patient loses her voice when she gany ets up with BP elevation and it comes back inconsistently. CT of the head today was negative for acute hemorrhage mass effect or midline shift. MRI did not show any lesions. She did receive TPA which did not change any manifestation. She continued to have similar episodes of hoarseness of voice and dyspnea on exertion when she gets up and walk with heart rate up in the 130s. Seen by ENT and GI. Exam - Neurology Vital Signs Temp Pulse Resp BP Pulse Ox O2 Del Method 96.9 F 90 20 126/96 H 99 Room Air 08/31/24 20:00 08/31/24 20:00 08/31/24 20:00 08/31/24 20:08/31/24 20:08/31/24 16:00 Narrative Exam GENERAL APPEARANCE: Well hydrated, well-nourished in no acute distress. HEENT: Normocephalic, atraumatic, extraocular movements intact. Pupils: Equal reacting to light and accommodation. Throat without erythema or exudate. Moist oral mucosa. NECK: Supple, no JVD or bruits. CARDIOVASULAR: Heart: S1, S2 heard, regular without S3-S4 or murmur no rubs or gallops. LUNGS/CHEST: Clear to auscultation bilaterally. No rails, rhonchi, or wheezing. Normal inspection. ABDOMEN: Soft, nontender, with normal bowel sounds. No pulsatile masses. No rebound, rigidity, or guarding. Normal inspection and palpation. EXTREMITIES: Normal inspection and palpation. No edema, clubbing or cyanosis. SKIN: Warm and dry without rashes. Normal inspection. MUSCULOSKELETAL: No cervical, thoracic, lumbar or midline bony tenderness. Normal inspection. NEURO: Alert, awake and oriented x3. Cranial nerves: II through XII grossly intact. Speech and language: Normal with no dysarthria or dysphasia. Motor system: Tone and bulk: Normal: Strength: 5 out of 5 in all 4 extremities; No pronator drift noted. Deep tendon reflexes: 2+ bilaterally symmetrical. Plantar reflex: Downgoing bilaterally. Sensory system: Intact to all modalities of sensation bilaterally. Coordination: Intact to [id number] and [id number] test bilaterally. No ataxia, no dysmetria, or dysdiadochokinesia noted. No intention tremors noted. Gait: Normal: No signs of meningeal irritation noted. PSYCHIATRIC: Normal mood and affect. Objective Labs 09/01/24 04:40 09/01/24 04:40 Labs: Laboratory Results - last 24 hr 08/31/24 05:00 WBC 9.9 RBC 5.00 Hgb 12.1 Hct 38.0 MCV 76 L MCH 24.2 L MCHC 31.8 RDW Std Deviation 46.5 H Plt Count 369 Neut % (Auto) 58 Lymph % (Auto) 25 [place] % (Auto) 7 Eos % (Auto) 8 Baso % (Auto) 1 Neut # (Auto) 5.8 Lymph # (Auto) 2.5 [place] # (Auto) 0.7 Eos # (Auto) 0.8 H Baso # (Auto) 0.1 Immature Gran # (Auto) 0.03 H Absolute Nucleated RBC 0.00 Immature Gran % 0 Nucleated RBC % 0 Sodium 135 L Potassium 3.7 Chloride 101 Carbon Dioxide 25.9 Anion Gap 8 BUN 12 Creatinine 0.6 Estim Creat Clear Calc Not Performed. eGFR > 60 BUN/Creatinine Ratio 20 Glucose 96 Calculated Osmolality 269 L Calcium 9.1 Corrected Calcium 9.1 Total Bilirubin 0.5 AST 21 ALT 21 Alkaline Phosphatase 64 Total Protein 7.2 Albumin 4.2 Globulin 3.0 Albumin/Globulin Ratio 1.4 Assessment & Plan Assessment and plan (1) Acute left hemiparesis: Status: Resolved Assessment and plan: S/P thrombolytic therapy. I independently reviewed the MRI images and interpreted the findings. Reassured her regarding the negative MRI brain and CT head. No need for any intervention such as LP at this time. (2) Hypertension: Status: Chronic Assessment and plan: Continue to monitor closely Actually the blood pressure has been low lately (3) Left-sided headache: Status: Acute Assessment and plan: Could be secondary to hypertension/anxiety. Continue the Lexapro
[2024-09-01] VITALS (8 sets, daily range): BP systolic 94–118; BP diastolic 67–83; PULSE 60–96; RESP 12–98; TEMP 36.1; O2SAT 95–99
[2024-09-01] MEDS: SODIUM CHLORIDE 0.9% 1000 ML 1,000 ML 125 ML IV ×2 (00:22→08:10)
[2024-09-01 05:44] LABS: Basophils # (Auto) 0.1 Thou/mm3 (0.0-0.2); Basophils % (Auto) 1 % (0-2.5); Eosinophils # (Auto) 0.6 Thou/mm3 (0.0-0.5); Eosinophils % (Auto) 5 % (0-10); Hematocrit 37.4 % (36.0-46.0); Hemoglobin 11.7 g/dL (12.0-16.0); Immature Granulocytes % (Auto) 0 % (0-0); Immature Granulocytes Auto 0.02 Thou/mm3 (0.00-0.00); Lymphocytes # (Auto) 2.9 Thou/mm3 (1.0-4.8); Lymphocytes % (Auto) 26 % (10-50); Mean Corpuscular HGB Conc 31.3 g/dl (31.0-37.0); Mean Corpuscular Hemoglobin 23.9 pg (25.0-35.0); Mean Corpuscular Volume 76 fL (80-100); Monocytes # (Auto) 0.9 Thou/mm3 (0.0-0.8); Monocytes % (Auto) 8 % (0-12); Neutrophils # (Auto) 6.8 Thou/mm3 (1.8-7.7); Neutrophils % (Auto) 60 % (37-80); Nucleated Red Blood Cell % 0 /100 WBC (0); Platelet Count 376 Thou/mm3 (140-440); RDW Standard Deviation 47.3 fL (36.4-46.3); White Blood Count 11.2 Thou/mm3 (3.6-11.0)
[2024-09-01 06:27] LABS: Alanine Aminotransferase 18 U/L (10-49); Albumin, Serum 3.9 gm/dL (3.5-5.0); Albumin/Globulin Ratio 1.4 (1.2-2.2); Alkaline Phosphatase 60 U/L (46-116); Anion Gap 9 (7-16); Aspartate Amino Transferase 20 U/L (0-34); BUN/Creatinine Ratio 20 Ratio (12-20); Bilirubin,Total 0.4 mg/dL (0.3-1.2); Blood Urea Nitrogen 12 mg/dL (9-23); Calcium 8.7 mg/dL (8.3-10.6); Calcium (Corrected) 8.8 mg/dL (8.5-10.1); Carbon Dioxide 24.6 mMol/L (20.0-31.0); Chloride 107 mMol/L (98-107); Creatinine (Component) 0.6 mg/dL (0.6-1.3); Globulin 2.8 gm/dL (2.3-3.5); Glucose 88 mg/dL (74-106); Osmolality,Calculated 279 (275-295); Potassium 3.6 mMol/L (3.4-5.1); Sodium 141 mMol/L (136-145); Total Protein 6.7 gm/dL (5.7-8.2); eGFR > 60 See Note
[2024-09-01] MEDS: LOSARTAN POTASSIUM 25 MG TABLET 50 MG PO (08:11)
[2024-09-01] MEDS: ESCITALOPRAM OXALATE 10 MG TABLET PO (08:12)
[2024-09-01] MEDS: PANTOPRAZOLE INJ 40 MG VIAL IVP (08:12)
[2024-09-01] MEDS: ASPIRIN EC 81 MG TABEC PO (08:12)
--- NOTE | 2024-09-01 09:19 | PD.NEPHDC ---
Planned Discharge Date 09/01/24 DS: Providers Provider Date of admission: 08/28/24 16:23 Primary care physician: Luis Carlos English MD Admitting Provider: Joana Puentes MD Attending Provider on Admission: Joana Puentes MD Consults: 08/28/24 14:02 Consult to Neurology / Tele-Neurology Routine Comment: Consulting Provider: [facility] 08/28/24 16:16 Consult to Neurology / Tele-Neurology Routine Comment: Consulting Provider: Elton Veloz 08/28/24 16:19 Referral Physical Therapy Routine Comment: Physician Instructions: Referral Speech Therapy Routine Comment: 08/29/24 23:21 Referral Infection Control Routine Comment: Reason for Infection Control Referral: Readmitted within 30 days 08/31/24 12:53 Consult to Gastroenterology Routine Comment: Consulting Provider: Juvenal Brantley 08/31/24 12:55 Consult to Otolaryngology(Head and Neck) Routine Comment: Consulting Provider: Carlos Eduardo Grimaldo 08/31/24 15:06 Consult to Cardiology Routine Comment: Consulting Provider: Uvaldo Prakash Attending Provider on DC: Luis Carlos English MD Discharging Provider: Luis Carlos English MD Discharge Diagnosis Discharge Diagnosis (1) Acute left hemiparesis: Status: Resolved (2) Hypertension: Status: Chronic (3) Left-sided headache: Status: Acute Problem List Completed Was Problem List Reviewed/Reconciled?: Yes Hospital Course Hospital Course Hospital course: Ms. Smith is a 44-year-old female with past medical history of hypertension, asthma, and iron deficiency anemia was admitted to the ICU on 08/28/2024 after coming to the ED with complaints of left-sided weakness. Patient stated that she was admitted to our hospital recently on Saturday due to feelings of weakness, dizziness, chest pressure, and shortness of breath, but that she was discharged yesterday and that she could return back to her daily activities. 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 She also mentioned that her left side of the body felt numb and weaker. She mentioned she does not remember quite what happened throughout the course of this neurological deficits before she came to the hospital. Patient states that she was well around noon time and the symptoms started around after lunchtime. Patient arrived to the ER in the window for TNK, teleneurology was consulted and she received TNK at 1450. She mentioned that she had a TIA in the past around 2 years ago, but is not on any medication for this at this time. She mentions that her only medication is the propranolol. She also stated that her father had multiple strokes in the past and he also had a brain aneurysm, which he last year from. She stated that her father's stroke started at an early age before 50s. She does not have any history of cardiac arrhythmias or PFO and she had not visited any physician prior for similar symptoms of shortness of breath, chest pressure, or feelings of weakness. 08/29/2024: Patient was seen and examined at bedside today. Got the signout from my colleague Dr. Lauro Metz. Patient initially came in because of left-sided weakness with left hemiplegia in the face and upper extremities. On examination patient loses her voice and it comes back inconsistently. Repeat CT of the head today was negative for acute hemorrhage mass effect or midline shift. MRI did not show any lesions. Will follow-up with neurology, recommendations. 09/01/2024 patient currently seen in telemetry. She is feeling short of breath and tachycardia when she moves from laying position to sitting. She feels wheezing. CT brain/MRI negative. Dr. Cedillo signed off. Dr. Veloz recommended Lexapro. Did explain to her to take to prevent anxiety episodes. She agreed. CT neck, chest, abdomen and pelvis negative for malignancy. So far all the workup has been coming negative. Albuterol ordered for wheezing. Blood pressure medications adjusted. Blood pressure in fact on the lower side. Patient had tachycardia upon standing. Patient seen by GI, ENT, cardiology. Probably patient has POTS syndrome. Dr. Bender recommended salt diet, adjust blood pressure medications and will see her in the outpatient setting. After giving 1.5 L of fluid she seems to be much better. Heart rate is better. Stable for discharge. Status at Discharge Cognitive/behavioral status at discharge: Stable Functional status at discharge: independent ambulation Overall status at discharge: patient is progressing back to baseline Time Spent with Patient Time attestation: Total time spent providing and/or coordinating discharge services:35 minutes Exam Vital Signs Temp Pulse Resp BP Pulse Ox O2 Del Method 36.1 C 79 18 115/83 95 Room Air 09/01/24 08:00 09/01/24 09:11 09/01/24 09:11 09/01/24 08:12 09/01/24 08:00 09/01/24 08:00 Narrative Exam Constitutional: Well nourished and in no acute distress Head: Normocephalic/Atraumatic Eyes: PERRL , no conjunctival injection , symmetrical lids. ENMT: Moist Mucous Membranes, No trauma or injury. Neck: Supple to palpation, No JVD CVS: RRR, S1 and S2 present, no murmurs, rubs or gallops . RESP: CTAB, no SOB, no rales, rhonchi or wheezing. No respiratory Distress. Inspiratory stridor observed occasionally GI: Normal BS, Nontender/Nondistended. MSK: Full range of motion, No trauma or deformities or masses. Skin: Warm to touch, Dry. No rashes or lesions. 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 Muscle strength is 6/6 on bilateral upper and lower extremities. Psych: (AAO) x3 . Appropriate mood and affect. Discharge Plan Plan Patient Disposition: HOME (Self Care) Disposition Comment: ICU Prescriptions/Referrals Prescriptions/Med Rec: New losartan 25 mg Tablet 50 mg PO QDAY Qty: 30 0RF escitalopram oxalate 10 mg Tablet 10 mg PO QDAY Qty: 30 0RF albuterol sulfate [Ventolin HFA] 90 mcg/actuation Hfa Aerosol Inhaler 2 puff INH Q4HR PRN (Reason: Shortness Of Breath Or Wheeze) Qty: 8.5 0RF Discontinued propranolol 10 mg tablet 10 mg PO 2XD Patient Comments: take 1 tablet by mouth twice a day Referrals: Luis Carlos English MD [Primary Care Provider] - Patient/Caregiver Discharge Instructions Discharge Activity: activity as tolerated Print Language: Turkmen Activity Restrictions/Additional Instructions: f/u with , dr. Abida bender in 1-2 weeks Stand Alone Forms: [employer] Award Info., Patient Portal Info Letter Discharge Order Discharge Orders: Discharge (Routine); Ordered 09/01/24 Ordered By: Luis Carlos English
--- NOTE | 2024-09-01 09:53 | PD.RESPRO ---
Documentation for date of: 09/01/24 Subjective Subjective Interval history: No acute overnight events noted. Seen and examined at bedside and patient states that she continues to feel palpitations and chest discomfort when going from laying/sitting to standing position. However, states that she was able to eat more of her meal today compared to prior. Repeat orthostatic vitals showed laying BP of 118/75, sitting BP of 108/78, and standing BP of 105/80 with HR of 74, 82, and 95, respectively. Will plan to give an additional 500 cc bolus of IVF and encourage increased PO intake with follow-up in one week after discharge. Exam Vital Signs Temp Pulse Resp BP Pulse Ox O2 Del Method 97.0 F 74 18 118/75 95 Room Air 09/01/24 08:00 09/01/24 09:49 09/01/24 09:11 09/01/24 09:49 09/01/24 08:00 09/01/24 08:00 Narrative Exam General: AOx3, no acute distress, able to speak full sentences HEENT: NC/AT, mucous membranes moist, bilateral sclera anicteric Cardiovascular: regular rate and rhythm, S1/S2 present, no murmurs appreciated Pulmonary: clear to auscultation bilaterally, no rales/rhonchi/wheezes Abdominal: soft, non-tender, non-distended, no rebound/guarding, normal bowel sounds present Musculoskeletal: normal ROM, no peripheral edema Skin: warm and dry, intact, no rashes Neuro: CN II-XII intact, no focal deficits Objective Labs 09/01/24 04:40 09/01/24 04:40 Labs: Laboratory Results - last 24 hr 09/01/24 04:40 WBC 11.2 H RBC 4.90 Hgb 11.7 L Hct 37.4 MCV 76 L MCH 23.9 L MCHC 31.3 RDW Std Deviation 47.3 H Plt Count 376 Neut % (Auto) 60 Lymph % (Auto) 26 [place] % (Auto) 8 Eos % (Auto) 5 Baso % (Auto) 1 Neut # (Auto) 6.8 Lymph # (Auto) 2.9 [place] # (Auto) 0.9 H Eos # (Auto) 0.6 H Baso # (Auto) 0.1 Immature Gran # (Auto) 0.02 H Absolute Nucleated RBC 0.00 Immature Gran % 0 Nucleated RBC % 0 Sodium 141 Potassium 3.6 Chloride 107 Carbon Dioxide 24.6 Anion Gap 9 BUN 12 Creatinine 0.6 Estim Creat Clear Calc Not Performed. eGFR > 60 BUN/Creatinine Ratio 20 Glucose 88 Calculated Osmolality 279 Calcium 8.7 Corrected Calcium 8.8 Total Bilirubin 0.4 AST 20 ALT 18 Alkaline Phosphatase 60 Total Protein 6.7 Albumin 3.9 Globulin 2.8 Albumin/Globulin Ratio 1.4 Quality Measures Quality Measures stroke Suspected type of Stroke: Unknown at this time Last known well (date): 08/28/24 Last known well (time): 12:00 Tenecteplase given: within 60 min of arrival Rehab services: PT evaluation ordered and Speech Language Pathology eval ordered VTE Prophylaxis: mechanical Antithrombotic by day 2:: ordered Statin ordered: >75 y/o moderate or high intensity dose Anticoagulation ordered for A-fib or flutter (current or hx): not indicated Assessment & Plan Assessment Current Active Medications: Generic Name Dose Route Start Last Admin Trade Name Freq PRN Reason Stop Dose Admin Acetaminophen 650 mg 08/28/24 16:12 08/31/24 20:01 Acetaminophen 325 Mg Tablet PO 09/27/24 16:11 650 mg Q6H PRN Administration pain and Fever >100.4 Albuterol 2 puff 08/30/24 16:17 08/31/24 09:26 Albuterol Inh 8 Gm INH 09/29/24 16:16 2 puff Q4HR PRN Administration SHORTNESS OF BREATH OR WHEEZE Aspirin 81 mg 08/30/24 09:00 09/01/24 08:12 Aspirin Ec 81 Mg Tabec PO 09/29/24 08:59 81 mg QDAY ANDREWS Administration Atorvastatin Calcium 80 mg 08/28/24 21:00 08/31/24 20:01 Atorvastatin Calcium 20 Mg Tablet PO 09/27/24 20:59 80 mg HS ANDREWS Administration Escitalopram Oxalate 10 mg 08/30/24 09:15 09/01/24 08:12 Escitalopram Oxalate 10 Mg Tablet PO 09/29/24 09:14 10 mg QDAY ANDREWS Administration Sodium Chloride 1,000 mls @ 125 mls/hr 08/31/24 22:21 09/01/24 08:10 Ns IV 10/01/24 10:00 125 mls/hr .Q8H ANDREWS Administration Labetalol HCl 10 mg 08/28/24 14:25 Labetalol Inj 5 Mg/Ml Vial 20 Ml IVP [id number] PRN SBP > 180 mmHg or DBP > 105 Losartan Potassium 50 mg 08/30/24 16:30 09/01/24 08:11 Losartan Potassium 25 Mg Tablet PO 09/29/24 16:29 50 mg QDAY ANDREWS Administration Nifedipine 30 mg 09/01/24 07:51 09/01/24 08:12 Nifedipine Xl 30 Mg Tabcr PO 09/29/24 16:29 Not Given QDAY ANDREWS Ondansetron HCl 4 mg 08/28/24 14:02 Ondansetron Inj 2 Mg/Ml Inj 2 Ml IV 09/27/24 14:01 Q4HR PRN NAUSEA OR VOMITING Pantoprazole Sodium 40 mg 08/28/24 16:20 09/01/24 08:12 Pantoprazole Inj 40 Mg Vial IVP 09/27/24 16:19 40 mg QDAY ANDREWS Administration Kristin Smith is a 44-year-old female with past medical history of hypertension, asthma, anxiety, iron deficiency anemia, and self-reported history of TIAs (~2022) who was admitted after being given TNK for stroke-like symptoms and cardiology consulted for sinus tachycardia. #Sinus tachycardia, likely physiologic versus inappropriate #Palpitations #Chest discomfort Presented on 08/26 for palpitations and chest discomfort with associated nausea, diaphoresis, and weakness. At that time BP went up to as high as 195/128 but BNP and troponin negative, EKG showed NSR without any ST changes or T wave abnormalities. For past 1 month she has been experiencing palpitations with associated chest discomfort but have become more frequent within the last 2 weeks. States that it happens consistently from sitting to standing and with minimal activity with associated dyspnea on exertion and a 15 pound weight loss attributed to decreased appetite within the same time period. Suspect that patient is intravascularly depleted in setting of decreased p.o. intake vs other causes as BUN/creatinine ratio of 20 and patient is afebrile, not in pain, and electrolytes within normal limits. Upon evaluation, patent ambulated to restroom and HR increased from high 90s to 130s-140s. Orthostatic vitals 08/31 showed lying BP 129/88, sitting BP 131/103, and standing BP of 125/105 with heart rates of 96, 106, and 140 respectively. Orthostatic vitals 09/01 showed lying BP 118/75, sitting BP 108/78, and standing BP of 105/80 with heart rates of 74, 82, and 95, respectively. ? Will give an additional 500 cc bolus of IVF and encourage increased PO intake ? Follow-up with cardiology within one week after discharge #History of hypertension Patient on propranolol 10 mg PO BID. States that blood pressure gets high at times, with previous admission showing BP as high as 190s/120s but home recordings are ~120-130/80. Blood pressure here in-house has been within range with current regimen. ? Continue losartan 50 mg p.o. daily ? Continue nifedipine 30 mg p.o. daily ? Labetalol 10 mg IV as needed #Stroke ruled-out, s/p TNK #Left-sided weakness, resolved #Mild hyponatremia #History of asthma #Shortness of breath #History of iron deficiency anemia ? Management of above conditions per primary team and other consultants ----- Plan discussed with attending physician Dr. Olinda Sauceda MD PGY-1 Internal Medicine Attending Provider Attestation/Addendum I have personally seen and examined the patient separately on the above date of service and discussed the plan of care with the resident. I reviewed the resident Dr. Pineda Sauceda consultation progress note and agree with the resident findings and plan in the note above and have also edited the documentation to reflect my findings and plan. Uvaldo Prakash M.D. Interventional Cardiology
[2024-09-01] MEDS: RINGERS LACTATED 500 ML 500 ML 250 ML IV (11:52)
== END 2024-09-01 14:24 | disposition home or self-care (01) | DRG 57 ==
LOC: SERX 15:44 → SERHOLD 16:42 → S2NX 08-31 05:45
PROVIDERS: Student in an Organized Health Care Education/Training Program; Admitting Provider Emergency Medicine; Emergency Provider Emergency Medicine; PCP Internal Medicine; Visit Provider Emergency Medicine
DX: G81.94 Hemiplegia, unspecified affecting left nondominant side (principal); E87.1 Hypo-osmolality and hyponatremia; R29.810 Facial weakness; I10 Essential (primary) hypertension; J45.909 Unspecified asthma, uncomplicated; R07.89 Other chest pain; R51.9 Headache, unspecified; R49.0 Dysphonia; J32.9 Chronic sinusitis, unspecified; R13.10 Dysphagia, unspecified; D50.9 Iron deficiency anemia, unspecified; R00.0 Tachycardia, unspecified; Z86.73 Personal history of transient ischemic attack (TIA), and cerebral infarction without residual deficits; R29.702 NIHSS score 2; Z82.3 Family history of stroke; Z79.899 Other long term (current) drug therapy; R59.1 Generalized enlarged lymph nodes; R25.1 Tremor, unspecified; G90.A Postural orthostatic tachycardia syndrome [POTS]
CPT/HCPCS: 36415; 70450; 70491; 70496; 70498; 70544; 71260; 74177; 80053; 80061; 80307; 80320; 81001; 83735; 84443; 84484; 84703; 85025; 85379; 85610; 85730; 87081; 87086; 87811; 92610; 93005; 93306; 94640; 96374; 97162; 99291; A4649; J2470; J3101; J7030; J7120; Q9967; A9270; G0480